=== PATIENT | female | born 1990 | race Caucasian/White ===

== ENCOUNTER 2022-11-03 08:37 | Outpatient (OUT) | payer OTHER, SELFPAY ==
[2022-11-03 10:17] LABS: Alanine Aminotransferase 22 U/L (14-59); Albumin Globulin Ratio 0.9; Albumin Level 3.6 g/dL (3.4-5.0); Alkaline Phosphatase 59 U/L (46-116); Anion Gap 12.1; Aspartate Amino Transferase 15 U/L (15-37); BUN Creatinine Ratio 17.3; Bilirubin Total 0.2 mg/dL (0.2-1.0); Calcium 8.8 mg/dL (8.5-10.1); Carbon Dioxide 25.3 mmol/L (21.0-32.0); Chloride 105 mmol/L (98-107); Cholesterol 141 mg/dL (<=200); Estimated GFR (African America >60 (>=60); Estimated GFR (Non-African Ame >60 (>=60); Globulin 4.1 g/dL; Glucose 95 mg/dL (74-106); HDL Cholesterol 47 mg/dL (40-60); LDL Cholesterol Calculated 80.8 mg/dL; Potassium 4.4 mmol/L (3.5-5.1); Sodium 138 mmol/L (136-145); Total Protein 7.7 g/dL (6.4-8.2); Triglycerides 66 mg/dL (<=150); VLDL CHOLESTEROL 13.2 mg/dL
== END 2022-11-03 08:38 | disposition home or self-care (01) ==
LOC: LAB 08:42
PROVIDERS: PCP Family Medicine; Visit Provider Family Medicine
DX: Z13.1 Encounter for screening for diabetes mellitus (principal); Z13.220 Encounter for screening for lipoid disorders
CPT/HCPCS: 36415; 80053; 80061

== ENCOUNTER 2022-11-16 15:17 | Outpatient (OUT) | payer OTHER, SELFPAY ==
[2022-11-16 16:07] LABS: Basophils Percent Auto 0.6 % (0.2-2.0); Eosinophils Absolute Auto 0.1 10^3/uL (0.0-0.7); Eosinophils Percent Auto 1.8 % (0.9-7.0); Hematocrit 38.9 % (36.0-48.0); Hemoglobin 13.1 g/dL (12.0-16.0); Immature Granulocytes Abs Auto 0.02 10^3/uL (0.00-0.03); Immature Granulocytes Pct Auto 0.3 % (0.0-0.5); Lymphocytes Absolute Auto 2.1 10^3/uL (1.2-3.8); Lymphocytes Percent Auto 28.7 % (20.5-60.0); Mean Corpuscular HGB Conc 33.7 g/dL (29.9-35.2); Mean Corpuscular Hemoglobin 29.1 pg (26.7-34.0); Mean Corpuscular Volume 86.4 fL (81.0-99.0); Mean Platelet Volume 9.7 fL (9.5-13.5); Monocytes Absolute Auto 0.6 10^3/uL (0.3-0.8); Monocytes Percent Auto 8.1 % (1.7-12.0); Neutrophils Absolute Auto 4.3 10^3/uL (1.4-6.5); Neutrophils Percent Auto 60.5 % (43.0-75.0); Platelet Count 238 10^3/uL (150-450); Red Cell Distribution Width 12.2 % (11.0-15.0); White Blood Count 7.2 10^3/uL (4.0-11.0)
[2022-11-16 16:15] LABS: Estimated Average Glucose 97 mg/dL
[2022-11-16 16:16] LABS: INR 1.03; Partial Thromboplastin Time 29.9 sec (22.3-36.2); Prothrombin Time 10.9 sec (9.0-11.6)
[2022-11-16 16:27] LABS: HCG Quantitative <1 mIU/mL; Thyroid Stimulating Hormone 1.048 uIU/mL (0.358-3.740)
[2022-11-16 17:00] LABS: Free T4 0.82 ng/dL (0.76-1.46)
== END 2022-11-16 15:18 | disposition home or self-care (01) ==
PROVIDERS: PCP Family Medicine; Visit Provider Obstetrics & Gynecology
DX: N92.6 Irregular menstruation, unspecified (principal); N92.1 Excessive and frequent menstruation with irregular cycle
CPT/HCPCS: 36415; 83036; 84439; 84443; 84702; 85025; 85610; 85730

== ENCOUNTER 2022-11-24 08:27 | Outpatient (OUT) | payer OTHER, SELFPAY ==
--- NOTE | 2022-11-24 08:30 | US_ITS ---
[address] [address] Patient Name: DAVE GILMAN MRN: [id number] date: 1990 Sex: F Assigned Patient Location: Current Patient Location: US Accession/Order Number: [id number] Exam Date: 11/24/2022 08:30 Report Date: 11/24/2022 10:01 At the request of: FELECIA NOVOA Procedure: US pelvis w/ transvaginal EXAM: Pelvic ultrasound HISTORY: . N92.6 Irregular menses . COMPARISON: None. TECHNIQUE: Transabdominal and transvaginal scanning was performed FINDINGS: Scanning of the pelvis demonstrates an anteverted uterus measuring 7.8 x 5.7 x 3.3 cm. Endometrial complex measures 6 mm. Right ovary measures 2.9 x 1 x 1.5 cm. Color-flow is noted. Resistive index was 0.6. No masses were noted. Within the right ovary there was a 8 x 6 mm smoothly marginated hyperechoic lesion. No color-flow is noted. Left ovary measures 3.9 x 2.1 x 1.4 cm. Color-flow is noted. Resistive indexes 0.56. There is a 1.2 x 0.8 cm dominant follicle/simple cyst in the left ovary. There is also a 1.1 x 0.9 cm avascular septated cyst within the left ovary. No fluid is noted in the cul-de-sac. US/US pelvis w/ transvaginal IMPRESSION: 1. Normal-appearing uterus and endometrial complex. 2. 1.2 x 0.8 cm dominant follicle/simple cyst in the left ovary. There is a small 1.1 x 0.9 cm avascular septated cyst in the left ovary as well. 3. Within the right ovary there was a slightly hyperechoic 8 x 6 mm area. There is no color-flow. Findings could represent a small amount of hemorrhage. Less likely would be a calcification. Ankle correlation is suggested. Electronically authenticated by: CYDNEY RAI Date: 11/24/2022 10:01
== END 2022-11-24 08:28 | disposition home or self-care (01) ==
LOC: US 08:28
PROVIDERS: PCP Family Medicine; Visit Provider Obstetrics & Gynecology
DX: N92.1 Excessive and frequent menstruation with irregular cycle (principal); N83.292 Other ovarian cyst, left side; N83.291 Other ovarian cyst, right side; N83.9 Noninflammatory disorder of ovary, fallopian tube and broad ligament, unspecified
CPT/HCPCS: 76830; 76856

== ENCOUNTER 2023-01-13 19:51 | Outpatient (REF) | payer OTHER, SELFPAY ==
[2023-01-20 14:09] LABS: Age Gdln ACOG Testing Note (.); HPV Aptima Negative (Negative); IGP, Aptima HPV, rfx 16/18,45 Note (.)
== END 2023-01-13 19:52 | disposition home or self-care (01) ==
LOC: LAB 19:51
PROVIDERS: PCP Family Medicine; Visit Provider Obstetrics & Gynecology
DX: Z12.4 Encounter for screening for malignant neoplasm of cervix (principal)
CPT/HCPCS: 87624; G0145

== ENCOUNTER 2024-01-18 18:51 | Outpatient (REF) | payer OTHER, SELFPAY ==
[2024-01-24 18:09] LABS: Age Gdln ACOG Testing Note (.); HPV Aptima Negative (Negative); IGP, Aptima HPV, rfx 16/18,45 Note (.)
== END 2024-01-18 18:52 | disposition home or self-care (01) ==
LOC: LAB 18:51
PROVIDERS: PCP Family Medicine; Visit Provider Obstetrics & Gynecology
DX: Z01.419 Encounter for gynecological examination (general) (routine) without abnormal findings (principal)
CPT/HCPCS: 87624; 88175

== ENCOUNTER 2025-02-06 18:12 | Outpatient (REF) | payer OTHER, SELFPAY ==
--- OUTSIDE RECORDS SUMMARY | 2024-02-01 08:00 | XMS_ITS ---
Author Organization BILLING FACILITY [employer] [facility] Address [address] [place] [address] Care Team Providers Care Rol[employer] Name Role Phone Casandra Gray Primary Care Provider REASON FOR VISIT flu shot 6 -35 months, Influenza vaccine 6 to 35 months IMMUNIZATIONS Vaccine Route Administration Date Status Comme nts Fluzone IM Intramuscular 02/01/2024 Administered Encounters Encounter Location Date Provider Diagnosis [address] [place] [address] 02/01/2024 Casandra Gray Influenza vaccine administered Z23 and Immunizations reviewed and up to date Z76.89 ASSESSMENTS Encounter Date Diagnosis Assessment Notes Treatment Notes Treatment Clinical Notes Section Notes 02/01/2024 Influenza vaccine administered ( ICD-10 - Z23) 02/01/2024Immunizations reviewed and up to date (ICD-10 - Z76.89) PLAN OF TREATMENT No Information Progress Notes * Clarissa CONNORSMaria ElenaOB:1990 ( 33 yo F)Acc No.[id number]:02/01/2024 Patient:??Leah CONNORS :??RAHEEM ParrishB:1990 ?Age:33 Y?Sex:FemaleDate:02/01/2024hone:[phone]:[address] [place] Subjective: * Chief Complaints: * Flu shot 6 -35 monthsInfluenza vaccine 6 to 35 months * HPI: ?Influenza Vaccine Background:?Injectable Influenza Vaccine??Adult or Pediatric??Pediatric.?? * Medical History: * Surgical History: * Hospitalization/Major Diagno stic Procedure: * Medications: Objective: Assessment: * Assessment: 1.??Influenza vaccine administered - Z23 (Primary)??2.??Immunizations reviewed and up to date - Z76.89?? Plan: * Treatment: * Procedures: ?The patient tolerated the procedure well without significant immediate side effects or difficulties. ? * Immunizations: Fluzone : 0.5 mL (Dose No:1) (Route: Intramuscular) given by Nunu Cortez on Left Deltoid (Influenza vaccine administered, Immunizations reviewed and up to date) * Procedure Codes: 34899 IMMUNIZATION ADMIN Fluzone * Billing Information: * Visit Code: * Procedure Codes: 82046 IMMUNIZATION ADMIN. Fluzone. * ign off status: Completed true * Provider: Casandra Gray CNP Date: 02/01/2024 History and Physical Notes * HPI (History of Present Illness) CategorySub-CategoryDetailNotesCategory NotesInfluenza Vaccine Background Injectable Influenza VaccineAdult or Pediatric: Pediatric
--- OUTSIDE RECORDS SUMMARY | 2024-02-28 03:30 | XMS_ITS ---
Author Organization BILLING FACILITY [employer] [facility] Address [address] [place] [address] Care Team Providers Care Otolaryngology Surgeon Name Role Phone Casandra Gray Primary Care Provider [phone] ALLERGIES No Known Allergies REASON FOR VISIT Skin Problem SOCIAL HISTORY Tobacco Use: Social History Observation Description Date Details (start date - stop date) Never Smoker NA - NA Sex Assigned At : Social History Observation Description Sex Assigned At Unknown Tobacco Use/Smoking Question Answer Notes Are you a nonuser VITAL SIGNS Heart Rate 65 /min 02/28/2024 Oximetry 98 % 02/28/2024 Blood pressure systolic 110 mm Hg 02/28/20 24 Blood pressure diastolic 72 mm Hg 024 Respiratory Rate 16 /min 02/28/2024 Weight 177.4 lbs 02/28/2024 Height 64 in 02/28/2024 BMI 30.45 02/28/2024 Weight-kg 80.47 kg 02/28/2024 Encounters Encounter Location Date Provider Diagnosis [address] [place] [address] 02/28/2024 Casandra Gray Irritated nevus D22. 9 ASSESSMENTS Encounter Date Diagnosis Assessment Notes Treatment Notes Treatment Clinical Notes Section Notes 02/28/2024 Irritated nevus (ICD-10 - D22.9) Discussed that mole likely became irritated due to friction from clothing and resulted in bleeding.Continue to monitor mole for asymmetry, irregular borders, more than one or uneven distribution of color, or a large (greater than 6mm) diameter. Finally, pay attention to the evolution of your moles- know what's normal for your skin and check it regularly for changes. Keep the area clean and dry.Apply band aid to affected area as needed. Signs and symptoms of infection were discussed with the patient. Discussed removal of mole; patient agrees that due to mole location, she would like to pursue removal. Will schedule with DW for lesion removal. PLAN OF TREATMENT Treatment Notes Assessment Notes Irritated nevus Discussed that mole likely became irritated due to friction from clothing and resulted in bleeding. Continue to monitor mole for asymmetry, irregular borders, more than one or uneven distribution of color, or a large (greater than 6mm) diameter. Finally, pay attention to the evolution of your moles - know what's normal for your skin and check it regularly for changes. Keep the area clean and dry. Apply band aid to affected area as needed. Signs and symptoms of infection were discussed with the patient. Discussed removal of mole; patient agrees that due to mole location, she would like to pursue removal. Will schedule with DW for lesion removal. Progress Notes * EFRENJohnRegisOB:1990 ( 33 yo F)Acc No.[id number]:02/28/2024 Patient:??Leah GILMAN :??Casandra RAHEEM GrayB:1990 ?Age:33 Y?Sex:FemaleDate:02/28/2024hone:[phone]:[address] [place], [place] Subjective: * Chief Complaints: * Skin Problem * HPI: ?Depression/Anxiety Screening:?PHQ-2 (2015 Edition)*??Little interest or pleasure in doing things???Not at all,??Feeling down, depressed or hopeless???Not at all,??Total score:??0.?Depression Screening:?KATEY-7 (2018 Edition)??Feeling nervous, anxious, or on edge??Not at all,??Not being ableto stop or control worrying??Not at all,??Worrying too much about different things??Not at all,??Trouble relaxing??Not at all,??Being so restless that it is hard to sit still??Not at all,??Becoming easily annoyed or irritable??Not at all,??Feeling afraid as if something awful might happen??Not at all,??Total KATEY-7 Score??0,??Interpretation of Total??(0 to 4) No Anxiety.?*:? HR is a 33 yo female presenting with mole to right buttocks present for 10+ years. Hashad mole evaluated in the past and was told it was benign. Had not noticed any change in size but states mole had been painful for several days and started bleeding after her shower on Wednesday. Reports no pain or bleeding since Wednesday. Covered mole with bandaid on Wednesday but has kept uncovered since yesterday. Has not applied any topicals. * ROS: ?General/Constitutional:?General??Denies:, chills, fatigue, fever.??Skin??REPORTS:, mole(s), concerning/changinglesions.? * Medical History: * Tobacco Conditioner History: Periods : every month has an IUD. Last mammogram date never. Abnormal pap smear Saw Dr Angel Jan 2024. control IUD. * OB History: Total pregnancies 3. Total living children 2. Miscarriage(s) - Apr 19 2016. # 1: normal spontaneous vaginal delivery (), girl 2016. # 2: normal spontaneous vaginal delivery () boy 2021. * Surgical History: bilateral tubal ligation (BTL) 2021gallbladder 2018 * Hospitalization/Major Diagno stic Procedure: No Hospitalization History. * Family History: Father: alive, diagnosed with Hypertension. Mother: alive. Paternal G F: . Paternal G M: . Maternal G F: . Maternal G M: alive. 2 brother(s) . 1 son(s) , 1 daughter(s) . . 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 * Social History: ?Tobacco Use:??Tobacco Use/Smoking??Are you a??nonuser.?? * Medications: None * Allergies: N.K.A.no[Allergies Verified] Objective: * Vitals: HR:65, Oxygen sat:98%, BP:110/72mm Hg, RR:16/min, Wt:177.4lbs, Ht:64in, BMI:30.45, Wt-k.47 kg. * Examination: ?General Examination *: ?GENERAL APPEARANCE:??alert and oriented, no acute distress, pleasant, well nourished.?HEAD:??atraumatic, normocephalic.?LUNGS:??good air movement, no respiratory distress.?SKIN:??Right lower buttocks raised nevus 4 mm x 5 mm, no drainage.?PSYCH:??cognitive function intact, mood normal, flat.? Assessment: * Assessment: 1.??Irritated nevus - D22.9 (Primary)?? Plan: * Treatment: Notes: Discussed that mole likely became irritated due to friction from clothing and resulted in bleeding. Continue to monitor mole for asymmetry, irregular borders, more than one or uneven distribution of color, or a large (greater than 6mm) diameter. Finally, pay attention to the evolution of your moles - know what's normal for your skin and check it regularly for changes. Keep the area clean and dry. Apply band aid to affected area as needed. Signs and symptoms of infection were discussed with the patient. Discussed removal of mole; patient agrees that due to mole location, she would like to pursue removal. Will schedule with for lesion removal. ? * Procedure Codes: * Billing Information: * Visit Code: 35184 Level 2 New Patient Acute Care. * Procedure Codes: * ign off status: Completed true * Provider: Casandra Gray CNP Date: 02/28/2024 History and Physical Notes * HPI (History of Present Illness) CategorySub-CategoryDetailNotesCategory NotesDepression/Anxiety ScreeningPHQ-2 (2015 Edition)*Little interest or pleasure in doing things?: Not at allFeeling down, depressed or hopeless?: Not at allTotal score:: 0Depression ScreeningGAD-7 (2018 Edition)Feeling nervous, anxious, or on edge: Not at allNot being able to stop or control worrying: Not at allWorrying too much about different things: Not at allTrouble relaxing: Not at allBeing so restless that it is hard to sit still: Not at allBecoming easily annoyed or irritable: Not at allFeeling afraid as if something awful might happen: Not at allTotal KATEY-7 Score: 0Interpretation of Total: (0 to 4) No Anxiety*HR is a 33 yo female presenting with mole to right buttocks present for 10+ years. Has had mole evaluated in the past and was told it was benign. Had not noticed any change in size but states mole had been painful for several days and started bleeding after her shower on Wednesday. Reports no pain or bleeding since Wednesday. Covered mole with bandaid on Wednesday but has kept uncovered since yesterday. Has not applied any topicals. Examination CategorySub-CategoryDetailNotesCategory NotesGeneral Examination *GENERAL APPEARANCE:alert and oriented, no acute distress, pleasant, well nourishedHEAD: atraumatic, normocephalicSKIN:Right lower buttocks raised nevus 4 mm x 5 mm, no drainageLUNGS:good air movement, no respiratory distressPSYCH:cognitive function intact, mood normal, flat
--- OUTSIDE RECORDS SUMMARY | 2024-04-05 11:00 | XMS_ITS ---
Author Organization BILLING FACILITY [facility] Address [address] [place] [address] Care Team Providers Care Designer Writer Name Role Phone Casandra Gray Primary Care Provider [phone] Layo Tan [phone] REASON FOR VISIT Mole removal VITAL SIGNS Height 64 in 04/05/2024 Encounters Encounter Location Date Provider Diagnosis [address] [place] [address] [address] 04/05/2024 Layo Peng PLAN OF TREATMENT No Information Progress Notes * Clarissa CONNORShDOB:1990 ( 34 yo F)Acc No.[id number]:04/05/2024 Patient:??Leah CONNORS :??Layo Peng MDDOB:1990 ?Age:33 Y?Sex:FemaleDate:4Phone:[phone]:[facility] [place], [place]Wyv:Casandra Gray Subjective: * Chief Complaints: * 1. Mole removal. * Medical History: Objective: * Vitals: Ht:64in. Assessment: Plan: * Treatment: * Billing Information: * Visit Code: * Procedure Codes: * ign off status: Completed* Addendum: * true * Provider: Layo Peng MD Date: 04/05/2024
--- OUTSIDE RECORDS SUMMARY | 2025-02-06 13:00 | XMS_ITS | Encounter Summary ---
Author Organization [facility] Address [address] [place] [address] Care Team Providers Care Director Medical Name Role Phone Layo Peng MD Primary Care Provider [phone] Reason for Visit * ReasonCommentsWell Women Visit Encounter Details DateTypeDepartmentCare Team (Latest Contact Info)Hxfddjosdyp69/21/2025 1:00 PM EDTOffice Visit [facility] [facility] [address] [place] [id number] Darrius Angel DO [address] [address] Well woman exam with routine gynecological exam Social History Tobacco UseTypesPacks/DayYears UsedDateSmoking Tobacco: NeverSmokeless Tobacco: Never Comments:Parents are smokers so I have a lot lf second hand exposure Alcohol UseStandard Drinks/WeekCommentsNot Currently0 (1 standard drink = 0.6 oz pure alcohol)I drink about twice a yearHumiliation, Afraid, Rape, and Kick questionnaireAnswerDate RecordedWithin the last year, have you been afraid of your partner or ex-partner?No10/08/2022Within the last year, have you been humiliated or emotionally abused in other ways by your partner or ex-partner?No 10/08/2022Within the last year, have you been kicked, hit, slapped, or otherwise physically hurt by your partner or ex-partner?No10/08/2022Within the last year, have you been raped or forced to have any kind of sexual activity by your part ner or ex-partner?No10/08/2022Social Connection and Isolation PanelAnswerDate RecordedIn a typical week, how many times do you talk on the phone with family, friends, or neighbors?Once a week10/08/2022How often do you get together with friends or relatives?Once a week10/08/2022How often do you attend pentecostalism or shinto services?More than 4 times per year10/08/2022o you belong to any clubs or organizations such as pentecostalism groups, unions, fraIdea2 or athletic finesse ups, or school groups?Yes10/08/2022How often do you attend meetings of the clubs or organizations you belong to?1 to 4 times per year10/08/2022re you , , , , never , or living with a partner? 10/08/2022UDIT-CAnswerDate RecordedQ1: How often do you have a drink containing alcohol?Monthly or less10/08/2022Q2: How many drinks containing alcohol do you have on a typical day when you are drinking?1 or Q3: How often do you have six or more drinks on one occasion?Never10/08/2022Overall Financial Resource Strain (CARDIA)AnswerDate RecordedHow hard is it for you to pay for the very basics like food, housing, medical care, and heating?Not very hard 10/08/2022[facility] [place] [facility] Occup[facility] - Occupational Stress QuestionnaireAnswerDate RecordedDo you feel stress - tense, restless, nervous, or anxious, or unable to sleep at night because yourmind is troubled all the time - these days?To some jfoaky4910/08/2022Exercise Vital SignAnswerDate Recorded On average, how many days per week do you engage in moderate to strenuous exercise (like a brisk walk)?5 days10/08/2022On average, how many minutes do you engage in exercise at this level?40 min10/08/2022Hunger Vital SignAnswerDate RecordedWithin the past 12 months, you worried that your food would run out before you got the money to buymore.Never true10/08/2022Within the past 12 months, the food you bought just didn't last and you didn't have money to get more.Never true10/08/2022RAPARE - TransportationAnswerDate RecordedIn the past 12 months, has lack of transportation kept you from medical appointments or from getting medications?No10/08/2022In the past 12 months, has lack of transportation kept you from meetings, work, or from getting things needed for daily living?No10/08/2022Housing Stability Vital SignAnswerDate RecordedIn the last 12 months, was there a time when you were not able to pay the mortgage or rent on time?No10/08/2022In the last 12 months, how many places have you lived?1 10/08/2022In the last 12 months, was there a time when you did not have a steady place to sleep or slept in ashelter (including now)?No10/08/2022EducationAnswer Date RecordedWhat is the highest level of school you have completed or the highest degree you have received?Some college, no aqspwi0211/26/2022 CommentsNoSex and Gender InformationValueDate RecordedSex Assigned at BirthNot on fileLegal EhrQuxodo53/15/2023 7:38 PM EDTGender IdentityNot on fileSexual OrientationNot on fileOccupationIndustryJob Start DateJob 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 DateWork 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 Not on fileNot on fileNot on filedocumented as of this encounter Last Filed Vital Signs Vital SignReadingTime TakenCommentsBlood Hevmcaau011/7210 12:58 PM EDT Pulse--Temperature--Respiratory Rate--Oxygen Saturation--Inhaled Oxygen Concentration--Tqappy08.8 kg (180 lb 6.4 oz)02/06/2025 12:58 PM EDTHeight--Body Mass Index30.0204 3:31 PM EDTdocumented in this encounter Plan of Treatment DateTypeDepartmentCare Team (Latest Contact Info)Vxjcvotpkkb13/22/2025 2:00 PM ESTOffice Visit [facility] [address] [place] [address] Sidra Ahmadi, ANGÉLICA [address] [place] [address] 04/10/2025 9:20 AM ESTOffice Visit [facility] [place] [facility] [address] [email or web address] [address] [place] [address] Kay Michael MD [address] [facility] [address] [place] [address] 02/13/2026 2:00 PM EDTProcedure Visit [facility] [address] [place] [address] Darrius Angel DO [address] [place], [place] [id number] NameTypePriorityAssociated DiagnosesOrder SchedulePap SmearPathology and CytologyRoutine Well woman exam with routine gynecological exam Ordered: 02/06/2025HPV DNA probe, amplifiedMicrobiologyRoutine Well woman exam with routine gynecological exam Ordered: 02/06/2025documented as of this encounter Visit Diagnoses Diagnosis Well woman exam with routine gynecological exam Routine gynecological examination documented in this encounter Care Teams Team MemberRelationshipSpecialtyStart DateEnd Date Layo Peng MD [address] [place] [address] PCP - GeneralFamily Fesfsyda30/14/25documented as of this encounter
--- OUTSIDE RECORDS SUMMARY | 2025-02-06 18:18 | XMS_ITS | CCD ---
Author Organization [facility] Care Team Providers Care Breaker Off Name Role Phone STANLEY, DR IZQUIERDO Admitting Unavailable STANLEY, DR IZQUIERDO Attending Unavailable HEMEYER, DR WILKINS Primary Care Unavailable KARMT, DR HILL Consulting Unavailable WEST, DR CYDNEY Loja Consulting Unavailable STANLEY, DR IZQUIERDO Consulting Unavailable KARASIK, DR HILL Admitting Unavailable KARASIK, DR HILL Attending Unavailable HEMEYER, DR WILKINS Primary Care Unavailable KARNANDOK, DR HILL Consulting Unavailable STANLEY, DR IZQUIERDO Admitting Unavailable STANLEY, DR IZQUIERDO Attending Unavailable HEMEYER, DR WILKINS Primary Care Unavailable STANLEY, DR IZQUIERDO Consulting Unavailable ZIEBER, DR LUCIAN Viramontes Consulting Unavailable STANLEY, DR IZQUIERDO Admitting Unavailable STANLEY, DR IZQUIERDO Attending Unavailable HEMEYER, DR WILKINS Primary Care Unavailable STANLEY, DR IZQUIERDO Consulting Unavailable STANLEY, DR IZQUIERDO Consulting Unavailable HEMEYER, DR WILKINS Primary Care Unavailable STANLEY, DR IZQUEIRDO Attending Unavailable STANLEY, DR IZQUIERDO Admitting Unavailable STANLEY, DR IZQUIERDO Consulting Unavailable HEMEYER, DR WILKINS Primary Care Unavailable STANLEY, DR IZQUIERDO Attending Unavailable STANLEY, DR IZQUIERDO Admitting Unavailable WEST, DR CYDNEY Loja Consulting Unavailable HEMEYER, DR WILKINS Primary Care Unavailable STANLEY, DR IZQUIERDO Attending Unavailable STANLEY, DR IZQUIERDO Admitting Unavailable STANLEY, DR IZQUIERDO Consulting Unavailable MISHEL SWARTZ Admitting Unavailable MISHEL SWRATZ Attending Unavailable HEMEYER, DR WILKINS Primary Care Unavailable MISHEL SWARTZ Consulting Unavailable ANDREW, DR HILL Admitting Unavailable KARNANDOK, DR HILL Attending Unavailable HEMEYER, DR WILKINS Primary Care Unavailable IMANI, DR CYDNEY Loja Consulting Unavailable STANLEY, DR IZQUIERDO Consulting Unavailable STANLEY, DR IZQUIERDO Admitting Unavailable STANLEY, DR IZQUIERDO Attending Unavailable HEMEYER, DR WILKINS Primary Care Unavailable STANLEY, DR IZQUIERDO Consulting Unavailable HEMEYER, DR WILKINS Primary Care Unavailable STANLEY, DR IZQUIERDO Attending Unavailable STANLEY, DR IZQUIERDO Admitting Unavailable STANLEY, DR IZQUIERDO Admitting Unavailable STANLEY, DR IZQUIERDO Attending Unavailable HEMEYER, DR WILKINS Primary Care Unavailable STANLEY, DR IZQUIERDO Consulting Unavailable ZIEBER, DR LUCIAN Viramontes Consulting Unavailable STANLEY, DR IZQUIERDO Consulting Unavailable HEMEYER, DR WILKINS Primary Care Unavailable STANLEY, DR IZQUIERDO Attending Unavailable STANLEY, DR IZQUIERDO Admitting Unavailable MORGOS, LAURA Consulting Unavailable JACE, LINDA SAXENA Consulting Unava ilable STANLEY, DR IZQUIERDO Consulting Unavailable HEMEYER, DR WILKINS Primary Care Unavailable STANLEY, DR IZQUIERDO Attending Unavailable STANLEY, DR IZQUIERDO Admitting Unavailable STANLEY, DR IZQUIERDO Procedure Practitioner Unavailab le KARASIK, DR HILL Consulting Unavailable KARASIK, DR HILL Attending Unavailable KARASIK, DR HILL Admitting Unavailable HEMEYER, DR WILKINS Primary Care Unavailable STANLEY, DR IZQUIERDO Consulting Unavailable HEMEYER, DR WILKINS Primary Care Unavailable STANLEY, DR IZQUIERDO Attending Unavailable STANLEY, DR IZQUIERDO Admitting Unavailable ZIEBER, DR LUCIAN Viramontes Consulting Unavailable HEMEYER, DR WILKINS Primary Care Unavailable STANLEY, DR IZQUIERDO Attending Unavailable STANLEY, DR IZQUIERDO Admitting Unavailable STANLEY, DR IZQUIERDO Consulting Unavailable HEMEYER, DR WILKINS Primary Care Unavailable STANLEY, DR IZQUIERDO Attending Unavailable STANLEY, DR IZQUIERDO Admitting Unavailable Hemeyer Jase PADILLA Primary Care Provider [phone] JASE LEZAMA Attending Unavailable JASE LEZAMA Attending Unavailable JASE LEZAMA Attending Unavailable FELECIA ANGEL Attending Unavailable CYDNEY MACIAS Unavailable CYDNEY MACIAS Unavailable CYDNEY MACIAS Unavailable Medications Current Medications MedicationDrug Class(es)DatesSig (Normalized)Sig (Original)azelastine hydrochloride 0.137 mg/actuat metered dose nasal spray (7 sources)Histamine-1 Receptor AntagonistStart: 08-05-2023 End: 15-87-0955cicl 1 spray(s) nasal route in the morningazelastine (Astelin) 0.1 % nasal spray Indications: Seasonal allergic rhinitis, unspecified trigger Administer 1 spray into each nostril in the morning and 1 spray before bedtime. Use in each nostrilas directed. 90 mL 3 08/05/2023 08/04/2024 Active End: 59-72-5778eqoa 1 spray(s) nasal route twice daily at bedtimeazelastine 137 mcg (0.1 %) nasal spray instill 1 spray into each nostril twice a day MORNING AND BEDTIME 06/02/2024 completed Not Available Not Available Not Available cetirizine hydrochloride 10 mg oral tablet (4 sources)Histamine-1 Receptor Antagonistcetirizine (ZyrTEC) 10 MG tablet Take 10 mg by mouth if needed for allergies Activelevonorgestrel 0.328524 mg/hr intrauterine system (6 sources)Progestin, Progestin-containing Intrauterine DeviceStart: 12-16-2022 Levonorgestrel intrauterine device 52 mgMultiple Vitamin (multivitamin) tablet (6 sources)take 1 tablet by mouth in the morningMultiple Vitamin (multivitamin) tablet Take 1 tablet by mouth in the morning. Activetake 1 tablet by mouth in the morningMultiple Vitamin (multivitamin) tablet Take 1 tablet by mouth in the morning. 0 Active Completed/Discontinued Medications MedicationDrug Class(es)DatesSig (Normalized)Sig (Original)azithromycin 250 mg oral tablet (3 sources)Macrolide AntimicrobialStart: 06-02-2024 End: 37-57-4178yqbr 2 tablets by mouth once dailyazithromycin 250 mg tablet TAKE 2 TABLETS (500 MG) BY ORAL ROUTE ONCE DAILY FOR 3 DAYS 06/02/2024 11/27/2024 completed Not Available Not Available Not Availablebenzonatate 100 mg oral capsule (3 sources)Non-narcotic AntitussiveStart: 06-02-2024 End: 62-31-6458mdmv 1 capsule by mouth three times dailybenzonatate 100 mg capsule Take 1 capsule 3 times a day by oral route for 10 days. 06/02/2024 11/27/2024 completed Not Available Not Available Not Availablehydrocortisone 10 mg/ml / neomycin 3.5 mg/ml / polymyxin b 91404 unt/ml otic suspension (2 sources)Aminoglycoside Antibacterial, Polymyxin-class Antibacterial, CorticosteroidStart: 05-19-2023 End: 37-05-1278kfcblton-polymyxin-hydrocortisone (Cortisporin) 3.5-18103-5 otic suspension Indications: Acute swimmer's ear of right side Administer 3-4 drops into each ear in the morning and 3-4 drops in the evening and 3-4 drops before bedtime. Do all this for 7 days. 10 mL 0 05/19/2023 05/26/2023 Expiredra cetirzne 10mg tab 60ct (3 sources) End: 86-12-6242peqn 1 tablet by mouth once dailyra cetirzne 10mg tab 60ct take 1 tablet by mouth once daily 06/02/2024 completed Not Available Not Available Not Available Problems Active Problems Problem ClassificationProblemDateDocumented DateEpisodic/ChronicCardiac dysrhythmias (2 sources)Bradycardia; Translations: [Bradycardia, unspecified]Onset: 01-24-2025 Resolved: 15-71-8492AazwucehUukppsmzaisjt and procreative management (5 sources)Encounter for sterilization; Translations: [ENCOUNTER FOR STERILIZATION]Onset: 72-55-1075XjvutxwwOnmuuels; convulsions (1 source)Epilepsy, unspecified, not intractable, without status epilepticus; Translations: [EPILEPSY UNS NOTINTRACT W/O SE]Onset: 65-90-5297LhtfrtqWesvjqyzc hypertension (6 sources)Essential hypertension; Translations: [Essential (primary) hypertension]Onset: 975406-54-1645XgbhqrvOwoluftuzwii complicating ; childbirth and the puerperium (13 sources)Unspecified pre-existing hypertension complicating , third trimester; Translations: [Unspecified pre-existing hypertension complicating childbirth]Onset: 58-70-3153WimtpxtBmtszlupqznit and screening for infectious disease (1 source)Encounter for screening for human papillomavirus (HPV); Translations: [ENC SCREENING HUMAN PAPILLOMAVIRUS]Onset: 00-61-5864MkhxatvrEspcxso and fatigue (2 sources)Fatigue; Translations: [Other fatigue]Onset: 01-24-2025 Resolved: 90-40-1374JclspmzdNfjed ear and sense organ disorders (2 sources)Conductive hearing loss, unilateral, right ear, with unrestricted hearing on the contralateral side; Translations: [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]Onset: 01-24-2025 Resolved: 72-68-2610LyzwmraQfaxt ear and sense organ disorders (2 sources)Acute otitis externa; Translations: [Swimmer's ear, right ear] 32-42-8299DbodyeqcAwaei endocrine disorders (6 sources)Polycystic ovary syndrome; Translations: [Polycystic ovarian syndrome]Onset: 016795-35-8631ZkwgkfkVuizh nutritional; endocrine; and metabolic disorders (6 sources)Obesity caused by energy imbalance; Translations: [Other obesity due to excess calories]Onset: 402545-86-9044OrvalkiLoydj screening for suspected conditions (not mental disorders or infectious disease) (8 sources)Encounter for screening for malignant neoplasm of cervix; Translations: [Encounter for screening for diabetes mellitus]Onset: 03-04-2021 EpisodicUnclassified (1 source)CONTACT W/AND (SUSP) EXPOS COVID-19; Translations: [CONTACT W/AND (SUSP) EXPOS COVID-19]Onset: 02-04-2022 Past or Other Problems Problem ClassificationProblemDateDocumented DateEpisodic/ChronicOB-related trauma to perineum and vulva (1 source)Second degree perineal laceration during delivery; Translations: [SECOND DEG PERINEAL LAC DUR DELIV]Onset: 06-61-3662GsjgdhzdUiakg complications of (1 source)Diseases of the nervous system complicating , third trimester; Translations: [DISEASES NERV SYS COMP PREG 3RD TRI]Onset: 05-08-2021 EpisodicOther and delivery including normal (5 sources)Single live ; Translations: [Encounter for supervision of normal , unspecified, thirdtrimester]Onset: 94-51-3062UagseaulKfuzbyvo codes; unclassified (1 source)37 weeks gestation of ; Translations: [37 WEEKS GESTATION OF ]Onset: 23-30-3792EmudmikjClqdjozo codes; unclassified (1 source)Acquired absence of other specified parts of digestive tract; Translations: [ACQ ABSENCE OTH PART DIGESTV TRACT]Onset: 15-16-9390Berswgsj Residual codes; unclassified (1 source)36 weeks gestation of ; Translations: [36 WEEKS GESTATION OF ]Onset: 92-28-7764SebrxkgiSftogqcm codes; unclassified (1 source)35 weeks gestation of ; Translations: [35 WEEKS GESTATION OF ]Onset: 15-44-6683WyutwbllOzlqdamt codes; unclassified (1 source)34 weeks gestation of ; Translations: [34 WEEKS GESTATION OF ]Onset: 26-34-8091BtxqnyhiBnmaiuax codes; unclassified (1 source)33 weeks gestation of ; Translations: [33 WEEKS GESTATION OF ]Onset: 33-85-3104AvhwqwfgOpevlnxd codes; unclassified (1 source)32 weeks gestation of ; Translations: [32 WEEKS GESTATION OF ]Onset: 47-20-5226HkgabpisCyfbboex codes; unclassified (1 source)27 weeks gestation of ; Translations: [27 WEEKS GESTATION OF ]Onset: 12-38-6946WfcdzfcwCasjwfgxi cord complication (1 source)Labor and delivery complicated by cord around neck, without compression, not applicable or unspecified; Translations: [L AND D COMP CORD NECK NO COMPRS NA/UNS]Onset: 31-90-4027Wkgbasgw Results Test NameValueInterpretationReference RangeFacilityCBC W Auto Differential panel (Bld)on 97-72-2954Qfqwvnquq (Bld) [#/Vol]0.1 10*3/uLInvalid Interpretation Code 0.0-0.2[facility] ([facility])Basophils/100 WBC (Bld)1 %Invalid Interpretation Codenot estab.[facility] ([facility])Eosinophils (Bld) [#/Vol]0.3 10*3/uL Invalid Interpretation Code0.0-0.4[facility] ([facility])Eosinophils/100 WBC (Bld)5 %Invalid Interpretation Codenot estab.[facility] ([facility]) Erythrocyte distribution width (RBC) [Ratio]12.1 %Invalid Interpretation Code 11.7-15.4[facility] ([facility])Hematocrit (Bld) [Volume fraction]41.6 % Invalid Interpretation Code34.0-46.6[facility] ([facility])Hemoglobin (Bld) [Mass/Vol]13.8 g/dLInvalid Interpretation Code11.1-15.9[facility] ([facility]) immature cellsNPInvalid Interpretation CodeLabcorp ([facility])Immature granulocytes (Bld) [#/Vol]0.0 10*3/uLInvalid Interpretation Code0.0-0.1[facility] ([facility])Immature granulocytes/100 WBC (Bld)0 %Invalid Interpretation Codenot estab.[facility] ([facility])Lymphocytes (Bld) [#/Vol]1.6 10*3/uL Invalid Interpretation Code0.7-3.1[facility] ([facility])Lymphocytes/100 WBC (Bld)33 %Invalid Interpretation Codenot estab.[facility] ([facility])MCH (RBC) [Entitic mass]30.9 pgInvalid Interpretation Code26.6-33.0[facility] ([facility])MCHC (RBC) [Mass/Vol]33.2 g/dLInvalid Interpretation Code31.5-35.7[facility] ([facility])MCV (RBC) [Entitic vol]93 fLInvalid Interpretation Mwgu94-79 [facility] ([facility])Monocytes (Bld) [#/Vol]0.6 10*3/uLInvalid Interpretation Code0.1-0.9[facility] ([facility])Monocytes/100 WBC (Bld)12 % Invalid Interpretation Codenot estab.[facility] ([facility])Morphology James (Bld) [Interp]NPInvalid Interpretation CodeLabcorp ([facility])Neutrophils (Bld) [#/Vol]2.4 10*3/uLInvalid Interpretation Code1.4-7.0[facility] ([facility])Neutrophils/100 WBC (Bld)49 %Invalid Interpretation Codenot estab.[facility] ([facility])Nucleated RBC/100 WBC (Bld) [Ratio]NPInvalid Interpretation CodeLabcorp ([facility])Platelets (Bld) [#/Vol]231 10*3/uLInvalid Interpretation Pgsg777-214Vuexgmb ([facility])RBC (Bld) [#/Vol]4.46 10*6/uL Invalid Interpretation Code3.77-5.28[facility] ([facility])WBC (Bld) [#/Vol] 5.0 10*3/uLInvalid Interpretation Code3.4-10.8[facility] ([facility]) Comprehensive metabolic 2000 panelon 85-32-4354Krjqsdk [Mass/Vol]4.2 g/dLInvalid Interpretation Code3.9-4.9[facility] ([facility])ALP [Catalytic activity/Vol] 57 U/LInvalid Interpretation Uqgl21-477Grrtdri ([facility])ALT [Catalytic activity/Vol]12 U/LInvalid Interpretation Code0-32[facility] ([facility])AST [Catalytic activity/Vol]18 U/LInvalid Interpretation Code0-40[facility] ([facility])Bilirubin [Mass/Vol]0.2 mg/dLInvalid Interpretation Code0.0-1.2[facility] ([facility])Calcium [Mass/Vol]8.9 mg/dLInvalid Interpretation Code8.7-10.2 [facility] ([facility])Chloride [Moles/Vol]104 mmol/LInvalid Interpretation Gwks36-314Gdkypgn ([facility])CO2 [Moles/Vol]21 mmol/LInvalid Interpretation Soeh45-19Kpqhyno ([facility])Creatinine [Mass/Vol]0.76 mg/dL Invalid Interpretation Code0.57-1.00[facility] ([facility])GFR/1.73 sq M.predicted among non-blacks MDRD (S/P/Bld) [Vol rate/Area]104 mL/min/{1.73_m2} Invalid Interpretation Code>59[facility] ([facility])Globulin (S) [Mass/Vol] 2.7 g/dLInvalid Interpretation Code1.5-4.5[facility] ([facility])Glucose [Mass/Vol]94 mg/dLInvalid Interpretation Rkag50-19Rnynhtp ([facility]) Potassium [Moles/Vol]4.4 mmol/LInvalid Interpretation Code3.5-5.2[facility] ([facility])Protein [Mass/Vol]6.9 g/dLInvalid Interpretation Code6.0-8.5 [facility] ([facility])Sodium [Moles/Vol]138 mmol/LInvalid Interpretation Code 134-144[facility] ([facility])Urea nitrogen [Mass/Vol]14 mg/dLInvalid Interpretation Code6-20[facility] ([facility])Urea nitrogen/Creatinine [Mass ratio]18 mg/mgInvalid Interpretation Code9-23[facility] ([facility])HEMOGLOBIN A1Con 45-28-8161PkS8p (Bld) [Mass fraction]5.0 %Invalid Interpretation Code 4.8-5.6[facility] ([facility])Comment on above:Prediabetes: 5.7 - 6.4 Diabetes: >6.4 Glycemic control for adults with diabetes: <7.0Lipid 1996 panelon 75-25-5405Wrxyqqpqnwy [Mass/Vol]130 mg/dLInvalid Interpretation Goeh223-307 [facility] ([facility])Cholesterol in HDL [Mass/Vol]46 mg/dLInvalid Interpretation Code>39[facility] ([facility])Cholesterol in LDL [Mass/Vol]74 mg/dLInvalid Interpretation Code0-99[facility] ([facility])Cholesterol in VLDL [Mass/Vol]10 mg/dLInvalid Interpretation Code5-40[facility] ([facility]) Cholesterol.total/Cholesterol in HDL [Mass ratio]2.8 {ratio}Invalid Interpretation Code0.0-4.4[facility] ([facility])Comment on above:T. Chol/HDL Ratio Men Women 1/2 Avg.Risk 3.4 3.3 Avg.Risk 5.0 4.4 2X Avg.Risk 9.6 7.1 3X Avg.Risk 23.4 11.0LDL calc comment:NPInvalid Interpretation CodeLabcorp ([facility])Triglyceride [Mass/Vol]44 mg/dLInvalid Interpretation Code0-149 [facility] ([facility])IGP,APTIMA HPV,AGE GDLNon 73-45-1718LBE GDLN ACOG TESTINGNote.NOMS HealthcareComment on above:TESTS RESULT FLAG UNITS REF RANGE LAB Clinician Provided Cytology Information Source.............Cervix;Endocervix No. of containers..01 ThinPrep Vial Age Alisono ACOG Geeta... FLAG LEGEND: L-Low Normal,H-High Normal,LL-Alert Low,HH-Alert High <-Panic Low,>-Panic High,A-Abnormal,AA-Critical Abnormal Performed at: 01 =[address] [place] [address] Sharmin Smith MD, HPV APTIMANegativeNegativeNOMS HealthcareComment on above:This nucleic acid amplification test detects fourteen high- risk HPV types (16,18,31,33,35,39,45,51,52,56,58,59,66,68) without differentiation. Performed at: =[address] [id number] Window Repairer: Sharmin Smith MD, Phone: [phone] Performed at: [address] [id number] Window Repairer: Sharmin Smith MD, Phone: [phone] IGP, APTIMA HPV, RFX 16/18,45Note.[facility] HealthcareComment on above:TESTS RESULT FLAG UNITS REF RANGE LAB DIAGNOSIS: 02 NEGATIVE FOR INTRAEPITHELIAL LESION OR MALIGNANCY. Specimen adequacy: 02 Satisfactory for evaluation. Endocervical and/or squamous metaplastic cells (endocervical component) are present. Performed by: 02 Indigo Mcnamara, Hydroelectric Plant Mechanical Engineer ([facility]) . 02 Note: Note 02 The Pap smear is a screening test designed to aid in the detection of premalignant and malignant conditions of the uterine cervix. It is not a diagnostic procedure and should not be used as the sole means of detecting cervical cancer. Both false-positive and false-negative reports do occur. Test Methodology: Note 02 This liquid based ThinPrep(R) pap test was screened with the use of an image guided system. HPV Genotype Reflex Note 02 Criteria not met, HPV Genotype not performed. FLAG LEGEND: L-Low Normal,H-High Normal,LL-Alert Low,HH-Alert High <-Panic Low,>-Panic High,A-Abnormal,AA-Critical Abnormal Performed at: [address] [facility] [address] [address] Sharmin Smith MD, BRUSH-SPATULA CERVIX ENDOCERVIX CLINISYNCNOMS [facility] AUTO DIFFon 26-75-1052AGOK #0.1 103/ulNormal0.0-0.1 [facility] HospitalComment on above:Performed By: #### CBC #### [facility] [address] [place] [address] Dr. Yilan ChangBasophils/100 WBC (Bld)1.2 %Normal0.2-2.0[facility] Comment on above:Performed By: #### CBC #### [facility] [address] [place] [address] Dr. Carlos Kc #0.3 103/ulNormal0.0-0.7The [facility] HospitalComment on above: Performed By: #### CBC #### [facility] [address] [place] [address] Dr. Carlos Gironosinophils/100 WBC (Bld)4.8 %Normal0.9-7.0[facility] Comment on above:Performed By: #### CBC #### [facility] [address] [place] [address] Dr. Carlos Gironrythrocyte distribution width (RBC) [Ratio]12.3 %Lwtgfe69.0-15.0 [facility] HospitalComment on above:Performed By: #### CBC #### [facility] [address] [place] [address] Dr. Carlos DrewHematocrit (Bld) [Volume fraction]39.5 %Lpgxaq13.0-48.0[facility] HospitalComment on above:Performed By: #### CBC #### [facility] [address] [place] [address] Dr. Carlos DrewHemoglobin (Bld) [Mass/Vol]13.3 g/nBLtyhth19.0-16.0[facility] HospitalComment on above:Performed By: #### CBC #### [facility] [address] [place] [address] Dr. Carlos Cheng #0.02 10e3/ulNormal0.00-0.03The [facility] HospitalComment on above:Performed By: #### CBC #### [facility] [address] [place] [address] Dr. Carlos Cheng %0.3 %Normal0.0-0.5The [facility] HospitalComment on above: Performed By: #### CBC #### [facility] [address] [address] [address] Carlos Reyes #1.9 103/ulNormal1.2-3.8The [facility] HospitalComment on above:Performed By: #### CBC #### [facility] [address] [place] [address] Dr. Carlos Pabonmphocytes/100 WBC (Bld)32.2 %Qkmxgi75.5-60.0The [facility] HospitalComment on above:Performed By: #### CBC #### [facility] [address] [place] [address] Dr. Carlos BrooksUAL DIFF REQNONormalThe [facility] HospitalComment on above: Performed By: #### CBC #### [facility] [address] [place] [address] Dr. Carlos Medina (RBC) [Entitic mass]30.0 csPogwnk89.7-34.0The [facility] HospitalComment on above:Performed By: #### CBC #### [facility] [address] [place] [address] Dr. Cralos Medina (RBC) [Mass/Vol]33.7 g/gACcwtlc21.9-35.2The [facility] HospitalComment on above:Performed By: #### CBC #### [facility] [address] [place] [address] Dr. Carlos Medina (RBC) [Entitic vol]89.2 yWNpavjf89.0-99.0The [facility] HospitalComment on above:Performed By: #### CBC #### [facility] [address] [place] [address] Dr. Carlos Alexis #0.5 103/ulNormal0.3-0.8The [facility] HospitalComment on above:Performed By: #### CBC #### [facility] [address] [place] [address] Dr. Carlos Deviocytes/100 WBC (Bld)7.9 %Normal1.7-12.0[facility] Comment on above:Performed By: #### CBC #### [facility] [address] [place] [address] Dr. Carlos HickmanUT #3.1 103/ulNormal1.4-6.5The [facility] HospitalComment on above:Performed By: #### CBC #### [facility] [address] [place] [address] Dr. Carlos Hickmanutrophils/100 WBC (Bld)53.6 %Jdvtmr23.0-75.0The [facility] HospitalComment on above:Performed By: #### CBC #### [facility] [address] [place] [address] Dr. Carlos DrewPlatelet mean volume (Bld) [Entitic vol]10.7 fLNormal9.5-13.5The [facility] HospitalComment on above:Performed By: #### CBC #### [facility] [address] [place] [address] Dr. Carlos DrewPLT245 103/mfZuuost124-984Yvw [facility] HospitalComment on above: Performed By: #### CBC #### [facility] [address] [place] [address] Dr. Carlos DrewRBC4.43 106/ulNormal4.20-5.40[facility] HospitalCompontiac [facility] on above:Performed By: #### CBC #### [facility] [address] [place] [address] Dr. Carlos DrewWBC5.8 103/ulNormal4.0-11.0The [facility] HospitalComment on above: Performed By: #### CBC #### [facility] [address] [place] [address] Dr. Carlos DrewCovid-19 PCR (CVDTBH)on [id number]-CoV-2 (COVID-19) RNA MIKIE+probe Ql (Unsp spec)Not detectedNormalNOT DETECTEDThe [facility] Comment on above:Result Comment: This test is not yet approved or cleared by the [place] FDA. When there are no FDA-approved or cleared tests available, and other criteria are met, FDA can make tests available under an emergency access mechanism called an Emergency Use Authorization (EUA). The EUA for this test is supported by the [place] of Health and Human Service's (HHS's) declaration that circumstances exist to justify the emergency use of in vitro diagnostics for the detection and/or diagnosis of the virus that causes COVID- 19. This EUA will remain in effect (meaning this test can be used) for the duration of the COVID-19 declaration justifying emergency of IVDs, unless it is terminated or revoked by FDA (after which the test may no longer be used). When diagnostic testing is negative, the possibility of a false negative should be considered in the context of a patient's recent exposures and the presence of clinical signs and symptoms consistent with SARS-CoV-2.Performed By: #### CVDTBH #### [facility] [address] [place] [address] Dr. Carlos Menchaca QUANT HCGon [id number] QUANT1 mIU/mLNSumma Health Wadsworth - Rittman Medical CenterComment on above:Performed By: #### PREGQNT #### [facility] [address] [place] [address] Dr. Carlos Encarnacion RANGESEE Premier HealthComment on above: Result Comment: 5-50 0.2-1 WEEK 50-500 1-2 WEEKS 100-5,000 2-3 WEEKS 500-10,000 3-4 WEEKS 1,000-50,000 4-5 WEEKS 10,000-100,000 5-6 WEEKS 15,000-200,000 6-8 WEEKS 10,000-100,000 2-3 MONTHSPerformed By: #### PREGQNT #### [facility] [address] [place] [address] Dr. Carlos Steen ACOG PANEL 2: 30 to 65on 12-06-2021..[facility] Medical CenterComment on above:Result Comment: Performed at: WBPerformed By: #### CVDTBH #### [facility] [address] [place] [address] Dr. Carlos Caldera Gdln ACOG Hqingcz45-15Fddp[address] [place], [place] [address]Comment on above:Performed By: #### CVDTBH #### [facility] [address] [place] [address] Dr. Carlos DrewDIAGNOSIS:CommentCleveland Clinic on above: Result Comment: NEGATIVE FOR INTRAEPITHELIAL LESION OR MALIGNANCY. Performed at: WBPerformed By: #### CVDTBH #### [facility] [address] [place] [address] Dr. Carlos DrewHPV AptimaNegativeNormalNegativeThe [facility] HospitalCompontiac [facility] hospital on above:Result Comment: This nucleic acid amplification test detects fourteen high-risk HPV types (16,18,31,33,35,39,45,51,52,56,58,59,66,68) without differentiation. Performed at: =GPerformed By: #### CVDTBH #### [facility] [address] [place] [address] Dr. Carlos DrewMethodology:CommentCleveland Clinic on above: Result Comment: This liquid based ThinPrep(R) pap test was screened with the use of an image guided system. Performed at: WBPerformed By: #### CVDTBH #### [facility] [address] [place] [address] Dr. Carlos DrewNote:CommentCleveland Clinic on above:Result Comment: The Pap smear is a screening test designed to aid in the detection of premalignant and malignant conditions of the uterine cervix. It is not a diagnostic procedure and should not be used as the sole means of detecting cervical cancer. Both false-positive and false-negative reports do occur. . Performed at: WBPerformed By: #### CVDTBH #### [facility] [address] [place] [address] Dr. Carlos DrewPerformed by:CommentNoMercy Health Willard Hospital on above: Result Comment: Rocio De Leon, Hydroelectric Plant Mechanical Engineer (ASCP) Performed at: WBPerformed By: #### CVDTBH #### [facility] [address] [place] [address] Dr. Carlos DrewSpecimen adequacy:CommentCleveland Clinic on above:Result Comment: Satisfactory for evaluation. Endocervical and/or squamous metaplastic cells (endocervical component) are present. Performed at: WBPerformed By: #### CVDTBH #### [facility] [address] [place] [address] Dr. Carlos DrewComprehensive Metabolic Panelon [id number] [Mass/Vol]4.4 g/dLNormal3.6-5.1[facility] SpecialistComment on above:Performed By: #### LIPD, CMP #### [facility] [address] [place], [place] [id number]/Globulin [Mass ratio]1.7 {ratio}Normal1.0-2.5NoUniversity Hospitals Elyria Medical Center SpecialistComment on above:Performed By: #### LIPD, CMP #### [facility] [address] [place], [place] [id number] [Catalytic activity/Vol]65 U/AMlplio66-502Wkyzxigy [place] [facility] SpecialistComment on above:Performed By: #### LIPD, CMP #### [facility] [address] [place], [place] [id number] [Catalytic activity/Vol]16 U/LNormal6-33NoUniversity Hospitals Elyria Medical Center SpecialistComment on above:Result Comment: 03/19/2021 Female reference range changed.Performed By: #### LIPD, CMP #### [facility] [address] [facility] [place] [id number] gap [Moles/Vol]15 mmol/XYzlrzl78-33Ltlumhih [place] [facility] SpecialistComment on above:Result Comment: Effective 04/24/2019 reference range changed.Performed By: #### LIPD, CMP #### [facility] [address] [place], [place] [id number] [Catalytic activity/Vol]20 U/LNormal9-34NoUniversity Hospitals Elyria [facility] Center SpecialistComment on above:Performed By: #### LIPD, CMP #### [facility] [address] [facility] [place] [id number] [Mass/Vol]0.37 mg/dLNormal0.30-1.20[facility] SpecialistComment on above:Performed By: #### LIPD, CMP #### [facility] [address] [place], [place] [id number]/CREA18 RatioNormal6-22NortAdams County HospitalHead Still Operator Comment on above:Performed By: #### LIPD, CMP #### [facility] [address] [place], [place] [id number] [Mass/Vol]9.3 mg/dLNormal8.6-10.2[facility] SpecialistComment on above:Performed By: #### LIPD, CMP #### [facility] [address] [place], [place] [id number] [Moles/Vol]107 mmol/DPcgsij88-914Xrqpujcs [place] [facility] SpecialistComment on above:Performed By: #### LIPD, CMP #### [facility] [address] [place], [place] [id number] [Moles/Vol]23 mmol/SCijzrf46-00Fjoglwcx [place] [facility] SpecialistComment on above:Performed By: #### LIPD, CMP #### [facility] [address] [place], [place] [id number] [Mass/Vol]0.7 mg/dLNormal0.6-1.4Nortabrazo arizona heart hospitaln [facility] SpecialistComment on above:Performed By: #### LIPD, CMP #### [facility] [address] [place], [place] [id number] mL/min/1.27h3Lgjzam>60Nortabrazo arizona heart hospitaln [place] [facility] SpecialistComment on above:Performed By: #### LIPD, CMP #### [facility] [address] [place], [place] [id number] mL/min/1.60c6Yycfdq>60NortKettering Health Washington Township Medical SpecialistComment on above:Performed By: #### LIPD, CMP #### [facility] [address] [place], [place] [id number] (S) [Mass/Vol]2.6 g/dLNormal1.9-3.7[facility] [place] [facility] SpecialistComment on above:Performed By: #### LIPZaynab, CMP #### [facility] [address] [place], [place] [id number] [Mass/Vol]95 mg/xUKoalgy40-33Etwhycte [place] Medical SpecialistComment on above:Result Comment: For FASTING Glucose --- ADA reference ranges: Normal 65-99 mg/dl Prediabetes 100-125 Diabetes >/= 126Performed By: #### LIPZaynab, CMP #### [facility] [address] [place], [place] [id number] [Moles/Vol]4.0 mmol/LNormal3.5-5.5N[facility]abrazo [facility] hospitaln [facility] SpecialistComment on above:Performed By: #### LIPZaynab, CMP #### [facility] [address] [place], [place] [id number] [Mass/Vol]7.0 g/dLNormal6.1-8.1[facility] SpecialistComment on above:Performed By: #### LIPZaynab, CMP #### [facility] [address] [place], [place] [id number] [Moles/Vol]141 mmol/UHdryex246-466Bxcfdsyq [place] [facility] SpecialistComment on above:Performed By: #### LIPZaynab, CMP #### [facility] [address] [place], [place] [id number] nitrogen [Mass/Vol]12 mg/dLNormal7-25N[facility]abrazo [facility] hospitaln [facility] SpecialistComment on above:Performed By: #### LIPZaynab, CMP #### [facility] [address] [place], [place] [id number] Panelon [id number] [Mass/Vol]157 mg/dLNormal 125-200NortAdams County Hospital SpecialistComment on above:Result Comment: Low risk < 200mg/dL Borderline risk 201-239 mg/dl High risk > or equal to 240Performed By: #### LIPZaynab, CMP #### [facility] [address] [place], [place] [id number] in HDL [Mass/Vol]46 mg/dLNormal>40Nortabrazo [facility] heart hospitaln [facility] SpecialistComment on above:Result Comment: High Cardiovascular Risk HDL <40 mg/dL Low Cardiovascular Risk HDL > or equal to 60 mg/dlPerformed By: #### LIPD, CMP #### [facility] [address] [place], [place] [id number] in LDL [Mass/Vol]96 mg/dLNoSt. Mary's Medical CenterComment on above:Result Comment: LDL ATP III CLASSIFICATION LDL less than 100 mg/dl Optimal LDL 100-129 mg/dl Near or above optimal LDL 130-159 Borderline high LDL 160-189 High LDL greater than 189 mg/dl Very HighPerformed By: #### LIPD, CMP #### [facility] [address] [place], [place] [id number] in VLDL [Mass/Vol]15 mg/dLNoSt. Mary's Medical CenterComment on above:Performed By: #### LIPD, CMP #### [facility] [address] [place], [place] [id number].total/Cholesterol in HDL [Mass ratio]3 {ratio} NormalNoLouis Stokes Cleveland VA Medical CenterComment on above:Performed By: #### LIPD, CMP #### [facility] [address] [place], [place] [id number] [Mass/Vol]74 mg/kIBijrkd91-762CvikcvabSelect Medical Specialty Hospital - CantonComment on above:Result Comment: TRIG ATPIII CLASSIFICATIONS TRIG less than 150 mg/dl Normal TRIG 150-199 mg/dl Borderline High TRIG 200-500 mg/dl High TRIG greather than 500 mg/dl Very HighPerformed By: #### LIPD, CMP #### [facility] [address] [place], [place] [id number] AUTO DIFFon [id number] #0.0 103/ulNormal0.0-0.1The [facility] HospitalComment on above:Performed By: #### CBC #### [facility] [address] [place], [place] [address] Dr. Carlos DrewBasophils/100 WBC (Bld)0.3 %Normal0.2-2.0The [facility] Comment on above:Performed By: #### CBC #### [facility] [address] [place] [address] Dr. Carlos Kc #0.1 103/ulNormal0.0-0.7The [facility] HospitalComment on above: Performed By: #### CBC #### [facility] [address] [place] [address] Dr. Carlos Gironosinophils/100 WBC (Bld)1.2 %Normal0.9-7.0The [facility] Comment on above:Performed By: #### CBC #### [facility] [address] [place] [address] Dr. Carlos Gironrythrocyte distribution width (RBC) [Ratio]13.8 %Qaoczp48.0-15.0 [facility] Doctors HospitalComment on above:Performed By: #### CBC #### [facility] [address] [place] [address] Dr. Carlos DrewHematocrit (Bld) [Volume fraction]34.0 %Critically low36.0-48.0 [facility] Doctors HospitalComment on above:Performed By: #### CBC #### [facility] [address] [place] [address] Dr. Carlos DrewHemoglobin (Bld) [Mass/Vol]11.6 g/dLCritically low12.0-16.0The [facility] HospitalComment on above:Performed By: #### CBC #### [facility] [address] [place] [address] Dr. Carlos Cheng #0.03 10e3/ulNormal0.00-0.03The [facility] HospitalComment on above:Performed By: #### CBC #### [facility] [address] [place] [address] Dr. Carlos Cheng %0.3 %Normal0.0-0.5The [facility] HospitalComment on above: Performed By: #### CBC #### [facility] [address] [place] [address] Dr. Carlos Reyes #1.4 103/ulNormal1.2-3.8The [facility] HospitalComment on above:Performed By: #### CBC #### [facility] [address] [place] [address] Dr. Carlos Pabonmphocytes/100 WBC (Bld)13.2 %Critically low20.5-60.0The [facility] HospitalComment on above:Performed By: #### CBC #### [facility] [address] [place] [address] Dr. Carlos Mejia DIFF REQNONormalThe [facility] HospitalComment on above: Performed By: #### CBC #### [facility] [address] [place] [address] Dr. Carlos Medina (RBC) [Entitic mass]30.1 ccTyvcmx09.7-34.0The [facility] HospitalComment on above:Performed By: #### CBC #### [facility] [address] [place] [address] Dr. Carlos Medina (RBC) [Mass/Vol]34.1 g/lPZxpphx80.9-35.2The [facility] HospitalComment on above:Performed By: #### CBC #### [facility] [address] [place] [address] Dr. Carlos Turpin (RBC) [Entitic vol]88.3 iHStaaqz87.0-99.0The [facility] HospitalComment on above:Performed By: #### CBC #### [facility] [address] [place] [address] Dr. Carlos Alexis #1.0 103/ulCritically high0.3-0.8ThSt. Mary's [facility] Comment on above:Performed By: #### CBC #### [facility] [address] [place] [address] Dr. Carlos Deviocytes/100 WBC (Bld)9.3 %Normal1.7-12.0[facility] Comment on above:Performed By: #### CBC #### [facility] [address] [place] [address] Dr. Yilan ChangNEUT #7.8 103/ulCritically high1.4-6.5The [facility] Comment on above:Performed By: #### CBC #### [facility] [address] [place] [address] Dr. Carlos Hickmanutrophils/100 WBC (Bld)75.7 %Critically high43.0-75.0The [facility] HospitalComment on above:Performed By: #### CBC #### [facility] [address] [place] [address] Dr. Carlos Torreslet mean volume (Bld) [Entitic vol]10.7 fLNormal9.5-13.5The [facility] HospitalComment on above:Performed By: #### CBC #### [facility] [address] [place] [address] Dr. Carlos DrewPLT157 103/wtAphusx732-828Ybs [facility] HospitalComment on above: Performed By: #### CBC #### [facility] [address] [place] [address] Dr. Carlos DrewRBC3.85 106/ulCritically low4.20-5.40The [facility] HospitalComment on above:Performed By: #### CBC #### [facility] [address] [place] [address] Dr. Carlos DrewWBC10.3 103/ulNormal4.0-11.0The [facility] HospitalComment on above:Performed By: #### CBC #### [facility] [address] [place] [address] Dr. Carlos DrewASYMPTOMATIC COVID-19 ANTIGENon [id number] StatementSEE BELOW NormalThe [facility] HospitalComment on above:Result Comment: This test has not been FDA cleared or approved, but has been authorized by the FDA under an Emergency Use Authorization (EUA) for use by authorized laboratories certified under CLIA that meet the requirements to perform moderate or high complexity testing. This test has been authorized only for the detection of proteins from SARS-CoV-2, not for any other viruses or pathogens. The emergency use of this test is authorized for the duration of the declaration that circumstances exist justifying the authorization of emergency use of in vitro diagnostic tests for detection and/or diagnosis of Covid-19 under section 564(b)(1) of the Act, 21 U.S.C. 360bbb-3(b)(1), unless the declaration is terminated or authorization is revoked sooner.Performed By: #### CVDAGA #### [facility] [address] [place] [address] Dr. Carlos Quintero-CoV-2 (COVID-19) RNA MIKIE+probe Ql (Unsp spec)NegativeNormal NEGATIVEThe [facility] HospitalComment on above:Result Comment: Negative results are presumptive. They do not preclude infection and should not be used as the sole basis for treatment decisions. Additional confirmatory testing by a molecular method should be considered.Performed By: #### CVDAGA #### [facility] [address] [place] [address] Dr. Carlos Wesley AUTO DIFFon [id number] #0.1 103/ulNormal0.0-0.1The [facility] HospitalComment on above:Performed By: #### CBC #### [facility] [address] [place] [address] Dr. Carlos DrewBasophils/100 WBC (Bld)0.5 %Normal0.2-2.0The [facility] Comment on above:Performed By: #### CBC #### [facility] [address] [place] [address] Dr. Carlos Kc #0.2 103/ulNormal0.0-0.7The [facility] HospitalComment on above: Performed By: #### CBC #### [facility] [address] [place] [address] Dr. Carlos Gironosinophils/100 WBC (Bld)2.0 %Normal0.9-7.0The [facility] Comment on above:Performed By: #### CBC #### [facility] [address] [place] [address] Dr. Carlos Gironrythrocyte distribution width (RBC) [Ratio]13.8 %Rlicxl29.0-15.0 The [facility] HospitalComment on above:Performed By: #### CBC #### [facility] [address] [place] [address] [address] Carlos Canasatocrit (Bld) [Volume fraction]36.3 %Kfncit51.0-48.0The [facility] Hospitalment on above:Performed By: #### CBC #### [facility] [address] [address] [address] Carlos DrewHemoglobin (Bld) [Mass/Vol]12.6 g/sYRpyijt86.0-16.0The [facility] HospitalComment on above:Performed By: #### CBC #### [facility] [address] [place] [address] Dr. Carlos Cheng #0.05 10e3/ulCritically high0.00-0.03The [facility] Comment on above:Performed By: #### CBC #### [facility] [address] [place] [address] Dr. Carlos Cheng %0.5 %Normal0.0-0.5The [facility] Hospitalment on above: Performed By: #### CBC #### [facility] [address] [place] [address] Dr. Carlos Reyes #1.8 103/ulNormal1.2-3.8The [facility] on above:Performed By: #### CBC #### [facility] [address] [address] [address] Carlos Pabonmphocytes/100 WBC (Bld)18.5 %Critically low20.5-60.0The [facility] Hospitalment on above:Performed By: #### CBC #### [facility] [address] [address] [address] Carlos BrooksUAL DIFF REQNONormalThe [facility] HospitalComment on above: Performed By: #### CBC #### [facility] [address] [place] [address] Dr. Carlos Alanis (RBC) [Entitic mass]30.4 hkNehmke40.7-34.0The [facility] HospitalComment on above:Performed By: #### CBC #### [facility] [address] [place] [address] Dr. Carlos Medina (RBC) [Mass/Vol]34.7 g/sBSxpsvd08.9-35.2The [facility] HospitalComment on above:Performed By: #### CBC #### [facility] [address] [place] [address] Dr. Carlos Medina (RBC) [Entitic vol]87.5 fGEwptzu20.0-99.0The [facility] HospitalComment on above:Performed By: #### CBC #### [facility] [address] [place] [address] Dr. Carlos Alexis #0.9 103/ulCritically high0.3-0.8The [facility] Comment on above:Performed By: #### CBC #### [facility] [address] [place] [address] Dr. Carlos Deviocytes/100 WBC (Bld)9.0 %Normal1.7-12.0The [facility] Comment on above:Performed By: #### CBC #### [facility] [address] [place] [address] Dr. Carlos Sharma #6.8 103/ulCritically high1.4-6.5The [facility] Comment on above:Performed By: #### CBC #### [facility] [address] [place] [address] Dr. Carlos Hickmanutrophils/100 WBC (Bld)69.5 %Xyszsc47.0-75.0The [facility] HospitalComment on above:Performed By: #### CBC #### [facility] [address] [place] [address] Dr. Carlos Torreslet mean volume (Bld) [Entitic vol]10.8 fLNormal9.5-13.5The [facility] HospitalComment on above:Performed By: #### CBC #### [facility] [address] [place] [address] Dr. Carlos McraeT212 103/neVbhgfk964-968Kkg [facility] HospitalComment on above: Performed By: #### CBC #### [facility] [address] [place] [address] Dr. Carlos DrewRBC4.15 106/ulCritically low4.20-5.40The [facility] HospitalComment on above:Performed By: #### CBC #### [facility] [address] [place] [address] Dr. Carlos DrewWBC9.7 103/ulNormal4.0-11.0The [facility] HospitalComment on above: Performed By: #### CBC #### [facility] [address] [place] [address] Dr. Carlos DrewCovid-19 PCR (CVDTB)on [id number]-CoV-2 (COVID-19) RNA MIKIE+probe Ql (Unsp spec)Not detectedNormalNOT DETECTEDThe [facility] Comment on above:Result Comment: This test is not yet approved or cleared by the [place] FDA. When there are no FDA-approved or cleared tests available, and other criteria are met, FDA can make tests available under an emergency access mechanism called an Emergency Use Authorization (EUA). The EUA for this test is supported by the [place] Director of Health and Human Service's (HHS's) declaration that circumstances exist to justify the emergency use of in vitro diagnostics for the detection and/or diagnosis of the virus that causes COVID- 19. This EUA will remain in effect (meaning this test can be used) for the duration of the COVID-19 declaration justifying emergency of IVDs, unless it is terminated or revoked by FDA (after which the test may no longer be used). When diagnostic testing is negative, the possibility of a false negative should be considered in the context of a patient's recent exposures and the presence of clinical signs and symptoms consistent with SARS-CoV-2.Performed By: #### CVDTBH #### [facility] [address] [place] [address] Dr. Carlos DrewDRUG SCREEN RAPID (URINE)on [id number]P The [facility] HospitalComment on above:Performed By: #### DRUGRPD #### [facility] [address] [place] [address] Dr. Carlos DrewBARNegativeNormalNEGOhioHealth Grant Medical CenterComment on above: Performed By: #### DRUGRPD #### [facility] [address] [place] [address] Dr. Carlos DrewBUPNegativeNormalNEGATIVEOhiohealth Doctors HospitalComment on above: Performed By: #### DRUGRPD #### [facility] [address] [place] [address] Dr. Carlos DrewBZONegativeNormalNEGATIVEOhiohealth Doctors HospitalComment on above: Performed By: #### DRUGRPD #### [facility] [address] [place] [address] Dr. Carlos DrewCOCNegativeBoone Hospital CenteralNEGOhioHealth Grant Medical CenterComment on above: Performed By: #### DRUGRPD #### [facility] [address] [place] [address] Dr. Carlos SpicerProvidence HospitalComment on above: Result Comment: AMP (Amphetamine): 500ng/mL, BAR (Barbituates): 200 ng/mL, BZO (Benzodiazepines): 150 ng/mL, BUP (Buprenorphine): 10 ng/mL, LEIGHTON (Cocaine): 150 ng/mL, mAMP (Methamphetamine): 500 ng/mL, MTD (Methadone): 200 ng/mL, OPI (Opiates): 100 ng/mL, OXY (Oxycodone): 100 ng/mL, PCP (Phencyclidine): 25 ng/mL, PPX (Propoxyphene): 300 ng/mL, THC (Cannabinoids): 50 ng/mL, TCA (Trycyclic Antidepressants): 300 ng/mLPerformed By: #### DRUGRPD #### [facility] [address] [place] [address] Dr. Carlos DrewDRUG CUT HEADERDRUG CLASS TEST SYSTEM CUT-OFF CONCENTRATIONS ARE FOLLOWS:NormalOhiohealth Doctors HospitalCompontiac general hospital on above:Performed By: #### DRUGRPD #### [facility] [address] [address] [address] Carlos DrewmAMPNegativeNormalNEGATIVEOhiohealth Doctors HospitalComment on above: Performed By: #### DRUGRPD #### [facility] [address] [address] [address] Carlos DrewMTDNegativeNormalNEGATIVEOhiohealth Doctors HospitalComment on above: Performed By: #### DRUGRPD #### [facility] [address] [address] [address] Carlos DrewOPINegativeNormalNEGOhioHealth Grant Medical CenterComment on above: Performed By: #### DRUGRPD #### [facility] [address] [address] [address] Carlos DrewOXYNegativeNormalNEGOhioHealth Grant Medical CenterComment on above: Performed By: #### DRUGRPD #### [facility] [address] [address] [address] Carlos DrewPCPNegativeNormalNEGOhioHealth Grant Medical CenterComment on above: Performed By: #### DRUGRPD #### [facility] [address] [address] [address] Carlos DrewPPXNegativeNormalNEGOhioHealth Grant Medical CenterCompontiac general hospital on above: Performed By: #### DRUGRPD #### [facility] [address] [place] [address] Dr. Carlos DrewTCANegativeNormalNEGOhioHealth Grant Medical CenterComment on above: Performed By: #### DRUGRPD #### [facility] [address] [place] [address] Dr. Carlos DrewTHCNegativeNormalNEGOhioHealth Grant Medical CenterComment on above: Performed By: #### DRUGRPD #### [facility] [address] [address] [address] Carlos DrewTYPE AND SCREENon 18-58-4570UMZS AND SCREENNegativeNormalThSt. Mary's Medical Center, Ironton CampusComment on above:Performed By: #### PREGQNT #### [facility] [address] [address] [address] Carlos Marin PREG BIOPHY W NON STRESSon 53-36-4247QY PREG BIOPHY W NON STRESSEXAMINATION: US PREG BIOPHY W NON STRESS HISTORY: Pre-existing hypertension complicating , childbirth and puerperium COMPARISON: No relevant comparison available. TECHNIQUE: Ultrasound biophysical profile was performed in the radiology department. non-reactive stress testing was performed by nursing staff in the birthing center. FINDINGS: BREATHING MOVEMENTS: 2.0 GROSS BODY MOVEMENTS: 2.0 TONE: 2.0 QUALITATIVE AMNIOTIC FLUID VOLUME: 2.0 PRESENTATION: Cephalic HEART RATE: 146.7 bpm H.B./min AMNIOTIC FLUID VOLUME: 19.5 cm cm GESTATIONAL AGE: 36 weeks 0 days CONCLUSION: Total biophysical profile score: 8.0 Electronically authenticated by: CYDNEY DIALLO Date: 2021-05-20 10:54[facility] CenterUS PREG GROWTHon 77-20-8901PU PREG GROWTHEXAMINATION: US PREG GROWTH HISTORY: Pre-existing hypertension complicating , childbirth and puerperium COMPARISON: No relevant comparison available. FINDINGS: Heart Rate: 146.7 bpm Amniotic Fluid Volume: 19.5 cm Number: 1.0 Position: Cephalic presentation, longitudinal lie Maximum Vertical Pocket: 5.9 cm cm 2.4 cm cm 6.3 cm cm 5.0 cm cm BIOMETRY: BPD: 8.8 cm cm; 35 weeks 5 days; 51% HC: 32.2 cmcm; 36 weeks 3 days, 28% AC: 32.1 cm cm; 36 weeks 0 days, 61% FL: 7.0 cm cm; 35 weeks 6 days; 41.4 % % EFW: 2819.7 grams, 6 lbs. 3 oz., 51% FL/AC: 21.8 FL/BPD: 79.0 HC/AC: 1.0 GESTATIONAL AGE: Age by EDC: 36 weeks 0 days VERÓNICA by EDC: 06/17/2021 Age by US: 36 weeks 0 days VERÓNICA by US: 06/18/2019 IMPRESSION: Normal interval growth Electronically authenticated by: CYDNEY DIALLO Date: 2021-05-20 10:56[facility] CenterGROUP B STREP CULTUREon 05-19-2021. agalactiae Ag Ql (Unsp spec)Culture Observations: NEGATIVE FOR GROUP B STREPTOCOCCUS.NormalThe [facility] HospitalComment on above: Performed By: #### PREGQNT #### [facility] [address] [place] [address] Dr. Carlos Marin PREG BIOPHY W NON STRESSon 55-19-8562RN PREG BIOPHY W NON STRESSEXAMINATION: US PREG BIOPHY W NON STRESS HISTORY: Pre-existing hypertension complicating , childbirth and puerperium COMPARISON: Ultrasound biophysical 05/06/2021 TECHNIQUE: Ultrasound biophysical profile was performed. FINDINGS: BREATHING MOVEMENTS: 2.0 GROSS BODY MOVEMENTS: 2.0 TONE: 2.0 QUALITATIVE AMNIOTIC FLUID VOLUME: 2.0 PRESENTATION: Cephalic HEART RATE: 143.6 bpm bpm. AMNIOTIC FLUID VOLUME: 14.1 cm GESTATIONAL AGE: 35 weeks 0 days CONCLUSION: Total biophysical profile score 8.0. Electronically authenticated by: LUCIAN BELLA Date: 2021-05-13 11:28[facility] PREG BIOPHY W NON STRESSon 11-47-4511JO PREG BIOPHY W NON STRESSEXAMINATION: US PREG BIOPHY W NON STRESS HISTORY: Pre-existing hypertension complicating , childbirth and puerperium COMPARISON: No relevant comparison available. TECHNIQUE: Ultrasound biophysical profile was performed. FINDINGS: BREATHING MOVEMENTS: 2.0 GROSS BODY MOVEMENTS: 2.0 TONE: 2.0 QUALITATIVE AMNIOTIC FLUID VOLUME: 2.0 PRESENTATION: CEPHALIC HEART RATE: 137.1 bpm H.B./min AMNIOTIC FLUID VOLUME: 12.2 cm cm GESTATIONAL AGE: 34 weeks 0 days CONCLUSION: Total biophysical profile score: 8.0 Electronically authenticated by: CYDNEY DIALLO Date: 2021-05-06 10:21[facility] PREG BIOPHY W NON STRESSon 92-64-2901EL PREG BIOPHY W NON STRESSEXAMINATION: US PREG BIOPHY W NON STRESS HISTORY: Pre-existing hypertension complicating , childbirth and puerperium COMPARISON: Ultrasound biophysical 04/22/2021 TECHNIQUE: Ultrasound biophysical profile was performed. FINDINGS: BREATHING MOVEMENTS: 2.0 GROSS BODY MOVEMENTS: 2.0 TONE: 2.0 QUALITATIVE AMNIOTIC FLUID VOLUME: 2.0 PRESENTATION: Cephalic HEART RATE: 137.8 bpm bpm. AMNIOTIC FLUID VOLUME: 14.0 cm GESTATIONAL AGE: 33 weeks 0 days CONCLUSION: Total biophysical profile score 8.0. Electronically authenticated by: LUCIAN BELLA Date: 2021-04-29 10:28[facility] PREG BIOPHY W NON STRESSon 84-25-2534PI PREG BIOPHY W NON STRESSEXAMINATION: US PREG BIOPHY W NON STRESS HISTORY: Pre-existing hypertension complicating , childbirth and puerperium COMPARISON: No relevant comparison available. TECHNIQUE: Ultrasound biophysical profile was performed in the radiology department. non-reactive stress testing was performed by nursing staff in the birthing center. FINDINGS: BREATHING MOVEMENTS: 2.0 GROSS BODY MOVEMENTS: 2.0 TONE: 2.0 QUALITATIVE AMNIOTIC FLUID VOLUME: 2.0 PRESENTATION: Cephalic HEART RATE: 137.8 bpm H.B./min AMNIOTIC FLUID VOLUME: 19.5 cm cm GESTATIONAL AGE: 32 weeks 0 days CONCLUSION: Total biophysical profile score: 8.0 Electronically authenticated by: CYDNEY DIALLO Date: 2021-04-22 11:40[facility] PREG GROWTHon 37-50-3113EL PREG GROWTHEXAMINATION: US PREG GROWTH HISTORY: Pre-existing hypertension complicating , childbirth and puerperium COMPARISON: No relevant comparison available. FINDINGS: Heart Rate: 137.8 bpm Amniotic Fluid Volume: 19.5 cm Number: 1.0 Position: Cephalic presentation, longitudinal lie Maximum Vertical Pocket: 5.0 cm cm 6.1 cm cm 4.3 cm cm 4.0 cm cm BIOMETRY: BPD: 8.3 cm cm; 33 weeks 2 days; HC: 31.1 cmcm; 34 weeks 5 days AC: 28.3 cm cm; 32 weeks 2 days FL: 6.3 cm cm; 32 weeks 4 days; 55.5 % % EFW: 2039.1 grams FL/AC: 22.3 FL/BPD: 76.5 HC/AC: 1.1 GESTATIONAL AGE: Age by EDC: 32 weeks 0 days VERÓNICA by EDC: 06/17/2021 Age by US: 33 weeks 2 days VERÓNICA by US: 06/08/2021 IMPRESSION: Normal interval growth Electronically authenticated by: CYDNEY DIALLO Date: 2021-04-22 11:41[facility] PREG GROWTHon 14-84-2862PV PREG GROWTHEXAMINATION: US PREG GROWTH HISTORY: Pre-existing hypertension complicating , childbirth and puerperium COMPARISON: No relevant comparison available. FINDINGS: Heart Rate: 147 Number: 1.0 Position: Breech Amniotic Fluid Volume: 13.3 cm Maximum Vertical Pocket: 5.0 cm BIOMETRY: BPD: 7.3 cm cm; 29 weeks 0 days HC: 28.3 cmcm; 31 weeks 0 days AC: 23.4 cm cm; 27 weeks 4 days FL: 5.6 cm cm; 29 weeks 4 days EFW: 1282 g (21st percentile by ultrasound, 73rd percentile by expected) FL/AC: 0.595103 FL/BPD: 0.551740 HC/AC: 1.601810 GESTATIONAL AGE: Age by EDC: 27 weeks, 3 days VERÓNICA by EDC: 06/17/2021 Age by US: 29 weeks, 2 days VERÓNICA by US: 06/10/2021 IMPRESSION: 1. Single live intrauterine with growth detailed above. Electronically authenticated by: LUCIAN BELLA Date: 2021-03-27 14:59[facility] CenterGLUCOSE - 1HRon 39-49-3019Igahzys [Mass/Vol]120 mg/dLCritically mczz66-944Tgp [facility] HospitalComment on above:Performed By: #### GLU1HR #### [facility] [address] [place] [address] Dr. Carlos DrewHEMOGRAM AND PLATELon 14-21-3926Qejgkvgllk (Bld) [Volume fraction]35.7 %Critically low36.0-48.0The [facility] HospitalComment on above: Performed By: #### PREGQNT #### [facility] [address] [address] [address] Carlos DrewHemoglobin (Bld) [Mass/Vol]12.2 g/tMNwyoun19.0-16.0The [facility] HospitalComment on above:Performed By: #### PREGQNT #### [facility] [address] [place] [address] Dr. Carlos DrewMCH (RBC) [Entitic mass]30.7 umQflaee26.7-34.0The [facility] HospitalComment on above:Performed By: #### PREGQNT #### [facility] [address] [place] [address] Dr. Carlos [facility]ST[facility] (RBC) [Mass/Vol]34.2 g/yBWsgbkb71.9-35.2The [facility] HospitalComment on above:Performed By: #### PREGQNT #### [facility] [address] [place] [address] Dr. Carlos [facility]IN[facility] (RBC) [Entitic vol]89.7 jZMpmnjw42.0-99.0The [facility] HospitalComment on above:Performed By: #### PREGQNT #### [facility] [address] [place] [address] Dr. Carlos DrewPLT205 103/hzYgctwx913-525Ocg [facility] HospitalComment on above: Performed By: #### PREGQNT #### [facility] [address] [place] [address] Dr. Carlos DrewRBC3.98 106/ulCritically low4.20-5.40The [facility] HospitalComment on above:Performed By: #### PREGQNT #### [facility] [address] [place] [address] Dr. Carlos DrewWBC9.8 103/ulNormal4.0-11.0The [facility] HospitalComment on above: Performed By: #### PREGQNT #### [facility] [address] [place] [address] Dr. Carlos Drew Vital Signs Date TimeVital SignValuePerforming PjolacpjpUsbrjibd86-14-8572 01:00-0400Body thyeqw209.29 cmDavid [employer] in [employer] 361294-11-6146 01:00-0400Body mass index (BMI) [Ratio]32.3 kg/v6Kbzlu [employer] in - [employer] 10-08-2025 01:00-0400Body surface area Derived from formula1.94 n3Gwsjtblanquita Macias [place] [employer] 01-35 01:00-0400Body jyvihr72.91 kgDablanquita [place]ias [place] [employer] 48-97 01:00-0400Diastolic blood mm[Hg] Cydney [place] [employer] 36-07 01:00-0400Heart rate79 /minDavizaynab Ginette [place] [employer] 31-98 01:00-6086BqH2% (BldA) [Mass fraction]98 % Cydney Macias [employer] 01-98 01:00-0400Systolic blood xmsopzgs454 mm[Hg] Cydney Macias [employer] [place] [employer] Work Phone: [phone] 01:00-0400Body .29 cmCasandra Gray [employer] Phone: [phone] 01:00-0400Body mass index (BMI) [Ratio]15 kg/v4Notdj [employer] [place] [employer] Work Phone: [phone] 01:00-0400Body surface area Derived from formula1.32 m4Hbrfs [employer] Phone: [phone] 01:00-0400Body hruzoi75.1 kgCasandra [employer] Work Phone: [phone] 01:00-0400Diastolic blood ofdcqayq26 mm[Hg] Casandra Gray [employer] Work Phone: [phone] 01:00-0400Heart rate75 /minCasandra Gray [employer] Work Phone: [phone] 01:00-3720LvO4% (BldA) [Mass fraction]99 % Casandra Gray [employer] Work Phone: [phone] 01:00-0400Systolic blood vitvdsoq609 mm[Hg] Casandra Gray [employer] Work Phone: [phone] 09:11-0400Body mass index (BMI) [Ratio]30.29 kg/u7Pxaul Stanley DO Work Phone: S[employer]SAss[employer]MN Aedvvxqemu42-52-9326 09:11-0400Body nzevya42.56 kgCoremadonna RossiTapEng[employer] Work Phone: noJiberishZwoxayeqkn69-37-0294 09:11-0400Diastolic blood buzhrwwk29 mm[Hg]Felecia Angel [employer] Work Phone: noJiberishAwpubkvgjw55-13-1897 09:11-0400Systolic blood ybbhzfal917 mm[Hg]Feleciamadonna Angel [employer] Work Phone: [facility] CenterHhwllnikpm13-75-7932 08:47-0500Body fofmak702.1 Real Lezama MD Work Phone: [facility] CenterNjenpddgzf34-14-2470 08:47-0500Body mass index (BMI) [Ratio]33.45 kg/n5MkxghrJase Lezama MD Work Phone: NOUniversity of [facility] Children's HospitalRqhehzelrj25-39-9769 08:47-0500Body .17 kgJase Lezama MD Work Phone: [facility] Healthcare Encounters Encounter DateEncounter TypeCare ProviderFacilityStart: 76-07-7280Uaopzyv med counseling center director&/risk factor redj spx 30 minDavid Ginette [place] - [employer], [facility] Start: 94-81-9201Kuvff health examinationCrenshaw Community Hospital Gray [place] [employer], [facility] Start: 55-59-7735Djvemnxq preventive med est patient 18-39 yrsHaley Gray [place] [employer], [facility] Start: 82-45-5617Vurvg health examinationEast [facility] [place] - [employer], [facility] Start: 44-84-1611Zzeuu [place] [employer], [facility] Start: 01-18-2024 End: 30-86-0711Ytrlxm flowsheetCorey Stanley DO Work Phone: noms BCP OBStart: 01-18-2024 End: 16-07-3242Lwuxom flowsheetCorey Stanley DO Work Phone: noms BCP OBStart: 01-18-2024 End: 40-12-0986Qhstwwhjt Result EncounterGeneric External Data ProviderNOMS External Department UnsolicitedStart: 01-18-2024 End: 52-92-8267Qbhxhfp encounter procedureCorey Stanley DO Work Phone: NOYL HealthcareStart: 01-18-2024 End: 95-49-6414Gtlhwcyw preventive med est patient 18-39 yrsCorey Stanley DO Work Phone: noms BCP OBComment on above:Well woman exam with routine gynecological examStart: 01-18-2024 End: 57-71-1286eickbijygaOUCVT FAZIONot AvailableStart: 10-19-2023 End: 91-69-4410xvorncoktrNFMZUB J HEMEYERNot AvailableStart: 08-05-2023 End: 94-44-0007wenqtzeovkWFVFLL J HEMEYERNot AvailableStart: 05-19-2023 End: 92-57-0593Taifya outpatient visit 10 minutesJase Lezama MD Work Phone: [facility] BNS FMComment on above:Acute swimmer's ear of right sideStart: 05-19-2023 End: 22-51-1307mncbyasjdqANMLND J HEMEYERNot AvailableStart: 94-48-7165Wrzelivgh for preprocedural laboratory examinationDR [facility] Start: 01-30-2022 End: 41-72-8855cpywocsdzsLL FELECIA FAZIOFacility:G0Clyvi: 01-28-2022 End: 98-84-8478aizxcfhxpaOJ FELECIA FAZIOFacility:Y4Xnpts: 01-28-2022 End: 09-64-7351Pbvrkarhj for preprocedural laboratory examinationDR [facility] Facility:H6Gvymz: 28-06-8851Rxsrwkpvu for other preprocedural examinationDR [facility] HospitalStart: 01-22-2022 End: 64-29-5666gqcahelpsoNQ EDWARD HEMEYERFacility:T5Vlxgj: 01-22-2022 End: 96-73-0726Qicegbfdd for other preprocedural examinationDR EDWARD HEMEYER Facility:E0Ijsge: 12-02-2021 End: 95-08-6139ijtjllelbcGS FELECIA FAZIOFacility:D8Zaome: 05-26-2021 End: 26-17-2052Xwgofeykgx and management of inpatientDR FELECIA FAZIOFacility:H1 Start: 30-62-6911ivziujujgsBL EDCHINYERE HEMEYERFacility:C2Xlqym: 05-20-2021 End: 13-42-1761xnspnwakqlVP CYDNEY Loja WESTFacility:C2Ytppq: 05-19-2021 End: 91-30-2037iygvfyiuovFC FELECIA FAZIOFacility:M1Kkfbs: 05-16-2021 End: 28-70-5402qccvoojusyFG SERGIO MORALESFacility:Y7Hqsdu: 05-13-2021 End: 47-99-2144nrfrsfubxxTJ FLEECIA FAZIOFacility:Q2Gqjzq: 05-09-2021 End: 20-07-8875epmjixucrhEFEPDVIO GEORGEFacility:I5Ynamc: 05-06-2021 End: 01-63-9322dkkjhqaufaVR SERGIO MORALESFacility:X6Hryzm: 05-02-2021 End: 97-38-3633zvmkfbjooiUG FELECIA FAZIOFacility:M6Mbetv: 04-29-2021 End: 82-76-2039gthogfwusmHU FELECIA FAZIOFacility:R8Ybqds: 04-25-2021 End: 59-24-9743gazqxkhiuyEN SERGIO MORALESFacility:R8Slaqc: 04-22-2021 End: 31-37-3832kdrlwxyhkcWN FELECIA FAZIOFacility:M1Vwvmh: 03-24-2021 End: 43-89-8760lroextlkhhBG FELECIA FAZIOFacility:J7Toqkg: 03-04-2021 End: 33-46-8251xphdebkpmdDG FELECIA FAZIOFacility:H1 Procedures DateProcedureProcedure DetailPerforming ClinicianStart: 01-24-2025 End: 51-29-8682PjoavbnfbfLigbj Macias Start: 47-17-5786NEZ,APTIMA HPV,AGE GDLNCorey Stanley DO Work Phone: Start: 17-79-6000Vwxmmfsziap observation [Identifier] in Cervix by Cyto Barbra Lezama MD Work Phone: Start: 62-28-0698Sdliqcqm of Products of Conception, External ApproachDR FELECIA FAZIOStart: 02-65-9068Fjwelfrk of Female Perineum, External ApproachDR FELECIA FAZIOStart: 48-43-2582Pnolbsfn of Amniotic Fluid, Therapeutic from Products of Conception, Via Natural or Artificial OpeningDR FELECIA FAZIOStart: 25-57-9976Fblorg Perineum Muscle, Open ApproachDR FELECIA ROSSIO Start: 13-57-3970Zlqlfrgmzyxg of Hormone into Female Reproductive, Via Natural or Artificial OpeningDR FELECIA FAZIOStart: 13-99-5908Nvlzzknza tubal ligation Casandra Gray Start: 16-88-7627HzhfxluitkiufzeWjset Myers Start: 89-80-0507EffftfczqwvoodeMhsly Myers Plan of Treatment DateCare ActivityDetailAuthorStart: 10-94-7673Buxkhsnhr for malignant neoplasm of cervixNOMS HealthcareStart: 95-83-5524Qdapgms encounter procedure line driver referralIN [employer] Start: 93-41-7316Ypbezjoplih [Units/volume] in Serum or PlasmaLabcorp ([place])Start: 50-76-8656JjEcdvbh; Acute ComplexInPerson; Acute ComplexKites Start: 01-22-2025 End: 09-67-2984Olwjack encounter yusoaovde60/06/2025 1:00 PM EDT Office Visit [facility] [address] [place] [id number] Felecia Angel, DO [address] [place] [place] [address] NOMS BCP OBStart: 40-71-3385PqPsynsf; PE Routine- 60 InPerson; PE Routine- 60IN [employer] Start: 41-08-9281VtWvhyei; PE, RoutineInPerson; PE, RoutineIN [employer] Start: 57-57-2594Jxuxolo evaluation of patient and reportInPerson; Nurse VisitIN [employer] Start: 90-29-0690XCQ W Auto Differential panel - Blood [facility] ([place])Start: 46-30-7065Onoqumuloykbv metabolic 1999 panel - Serum or PlasmaLabcorp ([place])Start: 21-83-9951Mqqtdzqnxh A1c/Hemoglobin.total in BloodLabcorp ([place])Start: 06-48-0645Ccplp 1995 panel - Serum or Plasma [facility] ([place])Start: 01-18-2024 End: 18-50-4769Usdysif encounter procedureNOMS [facility] OBComment on above:Arrived Start: 71-29-9759Tydkushyw vaccinationInfluenza Vaccine (#1)[facility] Cytology Cervical or vaginal smear or scraping studyPap Smear Pathology and Cytology Routine Well woman exam with routine gynecological exam Ordered: [facility] Work Phone: comment on above:Ordered: 01/18/2024Human papilloma virus DNA [Presence] in Unspecified specimen by Probe with amplificationHPV DNA probe, amplified Microbiology Routine Well woman exam with routine gynecological exam Ordered: 01/18/2024[facility] HealthcareComment on above:Ordered: 01/18/2024 Patient EducationIN [employer] Immunizations Immunization DateImmunizationNotesCare RwnllmdxFtpdahgu72-54-4550hzjyrjbxj, seasonal, injectable, preservative Fabiola Macias [place] [employer] [phone] vaccine or immune globulin; Translations: [Encounter for immunization]Cydney Macias [facility] [employer] [facility] CenterBarryNCLCMount Zion campus 10115639-40-2949haholfynf, seasonal, injectableCasandra Gray [facility] [employer] [id number], injectable, quadrivalent, preservative Disha Lezama MD Work Phone: [facility] CenterJldszkefem97-38-7950syeuaslxd virus vaccine, unspecified formulationCorey Stanley DO Work Phone: [facility] CenterIszxwdpcga73-94-0319xaptcgikf, injectable, quadrivalent, preservative freeJase Lezama MD Work Phone: [facility] CenterUfgbddjysk73-63-9805Pavshbllz, injectable, [place] Canine Kidney, preservative free, quadrivalentJase Lezama MD Work Phone: [facility] CenterOmdryyyphw93-01-8371savkqbi toxoid, reduced diphtheria toxoid, and acellular pertussis vaccine, adsorbedJase Lezama MD Work Phone: [facility] CenterSdvneewqkc58-59-9494UUBN-UMW-6 (COVID-19) vaccine, mRNA, spike protein, LNP, preservative free, 30 mcg/0.3mL doseCrenshaw Community Hospital [employer] [place] [facility] CenterBarryNCLC [id number]-LLW-5 (COVID-19) vaccine, mRNA, spike protein, LNP, preservative free, 30 mcg/0.3mL doseLakehealth Tripoint Medical Centerey HipClub [facility] HospitalNCLC [id number]-ICZ-2 (COVID-19) vaccine, mRNA, spike protein, LNP, preservative free, 30 mcg/0.3mL doseLakehealth Tripoint Medical CenterDAXKO [facility]vere [facility] Hospitalathon [employer] [id number], tetanus toxoids and acellular pertussis vaccineJase Lezama MD Work Phone: [facility] CenterJuvvqhboag16-97-5107nolhmud toxoid, reduced diphtheria toxoid, and acellular pertussis vaccine, adsorbedJase Lezama MD Work Phone: [facility] Payers DatePayer CategoryPayerPolicy [id number] [id number] 2.840.1.868028.3.57[id number] 2.840.1.239860.3.57[id number] 2.840.1.115647.3.57[id number] 2.840.1.601106.3.57[id number] 2.840.1.666071.3.57[id number] 2.0.1.459080.3.57[id number] 2..1.676918.3.57[id number] 2.0.1.186713.3.57[id number] 2..1.041985.3.57[id number] 2.840.1.314612.3.57[id number] 2..1.137509.3.57[id number] 2.840.1.910084.3.57[id number] 2.0.1.317305.3.57[id number] 2.840.1.229920.3.57[id number] 2.840.1.272396.3.57[id number] 2.0.1.199662.3.57[id number] 2.840.1.423279.3.57[id number] 2.16.840.1.687567.3.57[id number] 2.840.1.613626.3.57[id number] 2.840.1.925618.3.57[id number] 2.840.1.242622.3.57[id number] 2.0.1.537796.3.579.[id number] Social History DateTypeDetailFacilityStart: 10-15-2022 End: 03-98-0599Obgcjly smoking status NHISNever smoked tobaccoNOMS Healthcare Start: 10-15-2022 End: 52-36-4541Qawfdkd use and exposureSmokeless tobacco non-userNOMS Healthcare Start: 05-19-2023 End: 62-07-1234Grmecpi intakeEx-drinker (finding)[facility] HealthcareStart: 10-08-2022 End: 54-50-6147Odkcwtt of Social functionNOMS HealthcareStart: 10-08-2022 End: 75-76-8544Hlwgfaidmzn, Afraid, Rape, and Kick questionnaire [HARK][facility] HealthcareWithin the last year, have you been afraid of your partner or ex-partner?NoNOMS HealthcareDo you belong to any clubs or organizations such as presybeterian groups, unions, fraternal or athletic groups, or school groups?YesNOMS HealthcareAre you now , , , , never or living with a partner?MarriedNOMS HealthcareHow often to you have a drink containing alcohol?Monthly or lessNOMS HealthcareHow many standard drinks containing alcohol do you have on a typical day?1 or 2NOMS HealthcareHow often do you have 6 or more drinks on 1 occasion?NeverNOMS HealthcareHow hard is it for you to pay for the very basics like food, housing, medical care, and heating Not very hardNOMS HealthcareDo you feel stress - tense, restless, nervous, or anxious, or unable to sleep at night because yourmind is troubled all the time - these days [OSQ]To some extentNOMS Healthcare(I/We) worried whether (my/our) food would run out before (I/we) got money to buy more.Never trueNOMS Healthcare In the past 12 months, has lack of transportation kept you from medical appointments or from getting medications?NoNOMS HealthcareStart: 11-26-2022 Waftygbqv72MHTW HealthcareStart: 00-46-8765Ekcgkrz CommentCaffeine intake : 2-3 cups/dayNOMS HealthcareStart: 31-79-9904Xjm Assigned At BirthNot on fileNOMN HealthcareStart: 00-19-4962Suwtsso CommentParents are smokers so I have a lot lf second hand exposureNOMN HealthcareStart: 67-85-6067Okgfqdm CommentI drink about twice a yearNOUniversity of [facility] Medical Equipment Procedure CodeEquipment CodeEquipment Original TextEquipment IdentifierDates ProcedureImplant ([id number]) History of Present illness Narrative 01-18-2024 Note Date & CsqzFgllLilaxxio70-93-6720 History of Present illness Narrative* Nikkie Montilla, JAILENE - 01/18/2024 9:00 AM EDT Reason for Appointment: Patient ID: Leah Connors is a 33 y.o. female who presents for Gynecologic Exam Patient presents today for Annual Exam. MEDICATIONS Current Outpatient Medications Medication Instructions azelastine (Astelin) 0.1 % nasal spray 1 spray, Each Nostril, 2 times daily, Use in each nostril asdirected cetirizine (ZYRTEC) 10 mg, Oral, As needed Multiple Vitamin (multivitamin) tablet 1 tablet, Oral, Daily ALLERGIES No Known Allergies PROBLEMS Active Ambulatory Problems Diagnosis Date Noted Essential hypertension (CMS/HCC) 10/07/2022 Non morbid obesity due to excess calories 10/07/2022 PCOS (polycystic ovarian syndrome) 10/07/2022 Resolved Ambulatory Problems Diagnosis Date Noted No Resolved Ambulatory Problems Past Medical History: Diagnosis Date Gastroesophageal reflux disease without esophagitis History of abnormal cervical Pap smear History of seizures as a child Hypertension (CMS/HCC) Migraines (CMS/HCC) Miscarriage Seizures (CMS/HCC) 1993? Varicella 1996? HISTORY PAST MEDICAL HISTORY SOCIAL HISTORY Past Medical History: Diagnosis Date Gastroesophageal reflux disease without esophagitis History of abnormal cervical Pap smear ASCUS History of seizures as a child Hypertension (CMS/HCC) Migraines (CMS/HCC) Miscarriage PCOS (polycystic ovarian syndrome) Dr. Angel 05/27/2021, 03/25/2017 Seizures (CMS/HCC) 1993? Varicella 1996? Social History Tobacco Use Smoking status: Never Smokeless tobacco: Never Tobacco comments: Parents are smokers so I have a lot lf second hand exposure Vaping Use Vaping status: Never Used Substance Use Topics Alcohol use: Not Currently Comment: I drink about twice a year Drug use: Never FAMILY HISTORY Family History Problem Relation Name Age of Onset Hypertension Mother My mother doesnt have hbp but i cant let me remov Seizures Mother My mother doesnt have hbp but i cant let me remov Hypertension Father Jelani Jaimes No Known Problems Brother Bone cancer Mother's Brother Cancer Maternal Grandfather Hayden Covingtondrew Seizures Paternal Grandmother Yara Palicka Hypertension Paternal Grandmother Yara Palicka Diabetes type II Paternal Grandmother Yara Palicka Diabetes Paternal Grandmother Yara Palicka Cancer Mother's Brother Nunu Covingtondrew Hypertension Brother Pranav Mannsamantageneva SURGICAL HISTORY Past Surgical History: Procedure Laterality Date CHOLECYSTECTOMY 06/16/2017 [facility] IUD INSERTION 05/2016 Mirena PAP SMEAR 05/2016 Normal SALPINGECTOMY Bilateral 01/30/2022 Laparoscopic TUBAL LIGATION Removed Jan 2023 VAGINAL DELIVERY 05/27/2021 VAGINAL DELIVERY 03/25/2017 WISDOM TOOTH EXTRACTION 2011 wisdom teeth x2 WISDOM TOOTH EXTRACTION 07/2018 wisdom teeth x2 REVIEW OF SYSTEMS Review of Systems: Review of Systems Constitutional: Negative. HENT: Negative. Eyes: Negative. Respiratory: Negative. Cardiovascular: Negative. Gastrointestinal: Negative. Genitourinary: Negative. Musculoskeletal: Negative. Skin: Negative. Neurological: Negative. All other systems reviewed and are negative. Hematological: Negative. Endocrine: Negative. Allergic/Immunologic: Negative. OBJECTIVE Objective: Physical Exam Constitutional: Appearance: Normal appearance. She is well-developed. Genitourinary: Vulva normal. Breasts: Breasts are soft. Right: Normal. Left: Normal. Cardiovascular: Rate and Rhythm: Normal rate and regular rhythm. Pulmonary: Effort: Pulmonary effort is normal. Breath sounds: Normal breath sounds. Abdominal: General: Bowel sounds are normal. There is no distension. Palpations: Abdomen is soft. Tenderness: There is no abdominal tenderness. There is no guarding or rebound. Musculoskeletal: General: No swelling. Normal range of motion. Right lower leg: No edema. Left lower leg: No edema. Neurological: Mental Status: She is alert and oriented to person, place, and time. Skin: General: Skin is warm and dry. Psychiatric: Mood and Affect: Mood normal. Behavior: Behavior normal. Vitals and nursing note reviewed. Exam conducted with a skirt maker present. Vitals: Estimated body mass index is 30.29 kg/m as calculated from the following: Height as of 08/05/23: 5' 5 . Weight as of this encounter: 182 lb. BP: 122/78 No LMP recorded (lmp unknown). Patient has had an implant. ASSESSMENT & PLAN ICD-10-CM 1. Well woman exam with routine gynecological exam Z01.419 Pap Smear HPV DNA probe, amplified Annual Exam: Patient presents today for an annual exam. Patient states she is doing well and has no complaints. Pap was obtained without difficulty. Orders Placed This Encounter Procedures HPV DNA probe, amplified Follow Up: Patient is to return in one year for annual unless needed otherwise. Documented by Nikkie Montilla LPN on behalf of: Felecia Angel DO documented in this encounterNOMS Healthcare History of Present illness Narrative 05-19-2023 Note Date & VywlCiiiUpqpyvqw82-05-0598 History of Present illness Narrative* Jase Lezama MD - 05/19/2023 9:00 AM EST Patient ID: Leah Connors is a 32 y.o. female who presents for: Upper Respiratory Infection Patient complains of symptoms of a URI. Symptoms include ear ache and discharge on right side . Onset of symptoms was 3 days ago, and has been unchanged since that time. Treatment to date: none. Review of Systems Constitutional: Negative for chills and fever. HENT: Positive for ear discharge and ear pain. Negative for congestion, sinus pressure, sinus pain and sore throat. Respiratory: Negative for cough, shortness of breath and wheezing. Neurological: Negative for light-headedness and headaches. Objective The left ear canal and TM are within normal limits except for some mild retraction. The right ear canal is inflamed and reddened. There is some mild tenderness to palpating and tryingto straighten her hair for the exam. The TM itself appears mildly retracted but otherwise translucent. Visit Vitals Ht 5' 5 Wt 201 lb BMI 33.45 kg/m OB Status Having periods Smoking Status Never BSA 2.05 m No Known Allergies Current Outpatient Medications Medication Instructions Multiple Vitamin (multivitamin) tablet 1 tablet, Oral, Daily Assessment/Plan Diagnoses and all orders for this visit: Acute swimmer's ear of right side - ysrfxsth-wbbgyygce-cnweawcfxntpcd (Cortisporin) 3.5-10974-9 otic suspension; Administer 3-4 dropsinto each ear in the morning and 3-4 drops in the evening and 3-4 drops before bedtime. Do all thisfor 7 days. documented in this encounterSS[facility]-30-2022 Note Date & UbarPrbmLdrcadfh49-69-1050 NoteOPERATIVE NOTE OPERATION DATE: 01/30/2022 PROCEDURE: Bilateral laparoscopic salpingectomy. PREOPERATIVE DIAGNOSIS: Multiparity, desires permanent sterilization. POSTOPERATIVE DIAGNOSIS: Multiparity, desires permanent sterilization. ANESTHESIA: General. SURGEON: Felecia Angel D.O. OBSTETRIC ANAESTHETIST: AMISH Platt URINE OUTPUT: Yellow and clear. BLOOD LOSS: 5 mL. FINDINGS: Normal appearing ovaries, uterus and tubes. SPECIMEN: Bilateral tubes. PROCEDURE: The patient was taken back to the Operating Room where she was given general anesthesia without difficulty. She was then prepped and draped in the normal sterile fashion after being placed in a dorsal lithotomy position. A wet sponge stick was placed into the patient's vagina. Attention was then turned to the patient's abdomen, where a scalpel was used to make a small infraumbilical incision. The S retractors were then used to dissect the underlying layers until the fascia could be seen. The fascia was then grasped with Sue clamps and tented up. A knife was then used to make a small incision to the fascia. The muscle was identified, at that time two sutures of #0 Vicryl on a GI needle was then used and placed through the fascia. The peritoneum was then identified and entered bluntly. The 10-4 Shari was then placed into the patient's abdomen. This was confirmed with direct visualization of the bowel, using the laparoscope. The patient's abdomen was then insufflated using approximately 4 liters of CO2 gas. Survey of the patient's abdomen demonstrated ovaries were normal in appearance as well as both tubes and uterus. A second and third rt and lt lateral ports which were 7-8 and 5 mm in size, was then placed after the skin incision was made under direct visualization The patient's tube on the patient's right side was identified and tented up using a grasper, the LigaSure apparatus was then used to come across the mesosalpinx from the fimbriated end to the insertion site at the uterus, the tube was then amputated and removed in its entirety. This was done on the contralateral side. The tubes were the removed from the patient's abdomen. Excellent hemostasis was noted. The lateral ports were then moved under direct visualization with excellent hemostasis. All instruments were removed from the patient's abdomen. The fascia was closed using the #0 Vicryl on GI needle. The skin was closed using 4-0 Vicryl subcuticularly. All instruments were removed from the patient's vagina as well. The patient was taken out of the dorsal lithotomy position and placed in the supine position and taken to recovery in stable condition. Sponge, lap and needle counts were correct x2.[facility] Evaluation note Note Date & TypeNoteFacilityEvaluation note* Diagnosis Acute swimmer's ear of right side documented in this encounter [facility] Evaluation note Note Date & TypeNoteFacilityEvaluation note* Diagnosis Well woman exam with routine gynecological exam Routine gynecological examination documented in this encounter [facility] Evaluation note Note Date & TypeNoteFacilityEvaluation note No assessment recorded. [place] [facility] Evaluation note Note Date & TypeNoteFacilityEvaluation note* Encounter Date Assessment Date Assessment LastModified by Organization Details LastModified Time 11/27/2024 11/27/2024 Reviewed pre-phy sical labs in detail. Immunizations reviewed and UTD. Recommended: Dental cleanings 2x/yr Annual eye exams Annual flu vaccine Tdap every 10 years Shingles vaccine at age 50. Pneumonia vaccine at age 50 RSV vaccine at age 60 (50-59 with risk factors) Cervical cancer screening (Pap smear +/- HPV) every 3-5 years start at 21 years of age. Breast Cancer Screening (Mammogram) every 1-2 years starting at the age of 40. Colon Cancer Screening (Colonoscopy, Cologuard, or Colofit are options) starting at age 45 (or sooner if indicated). Osteoporosis screening (Bone density studies) starting at 65 (or sooner if indicated). Annual Lung cancer screening (LDCT) for smokers at age 50-80 with 20pkyr history of smoking who continue to smoke or quite within past 15 years Reviewed age appropriate wellness including getting 7-8 hours of sleep at night, diet, activity (150 minutes of aerobic exercise + strength training), water intake, sun protection (limiting exposure,sunscreen, protective clothing/hats), and accident prevention (i.e. gun safety, wearing seatbelt, wearing helmets w/ bikes).eitala09Quv ajvxxgkws07/11/2025 11:19:53 [place] [employer] History general Narrative - Reported Note Date & TypeNoteFacilityHistory general Narrative - Reported* Condition Response Hypertension (High Blood Pressure) Y Gynecological History Statement/Question Response Abnormal Pap Y Current Control Method IUD Date of LMP Obstetrics History GPAL:G 3 P 0 0 0 2 Type Value Multiple Births 0 Full Term 0 Induced 0 Spontaneous 0 Premature 0 Living 2 Ectopics 0 Total 3 IN [employer] History general Narrative - Reported Note Date & TypeNoteFacilityHistory general Narrative - Reported* Condition Response Hypertension (High Blood Pressure) Y Gynecological History Statement/Question Response Abnormal Pap Yes Date of Last Pap Smear 01/18/2024 Current Control Method IUD Obstetrics History GPAL:G 3 P 0 0 0 2 Type Value Multiple Births 0 Full Term 0 Induced 0 Spontaneous 0 Premature 0 Living 2 Ectopics 0 Total 3 IN [employer] Reason for referral (narrative) Note Date & TypeNoteFacilityReason for referral (narrative)* [employer] Referral fo r 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 Referring Physician: Cydney Macias, Family Medicine, Encounter Date: 01/24/2025 Kites Summary Purpose Family History Relationship Description Onset Age of this Age Resolved Age Notes LastModified by Organization Details LastModified Time Paternal Grandmother Hypertensive disorder gjnzhwrk26Rnw zqqhtofpn59/18/2024 15:08:47Paternal PuzqzfvnqmpZpypoocbenprbrgc43 Not jwyiklxwo57/18/2024 15:08:48FatherEssential hypertensiondiagnosed with Hypertensionvsenthil.2754Not tjgeqpdby91/06/2025 21:11:45 Notes:*Relative: Father *Pro blem: alive *Relative: Maternal Grandfather *Problem: Relative: 'Maternal G F'; *Relative: Maternal Grandmother *Problem: alive *Relative: Mother *Problem: alive *Relative: Paternal Grandfather *Problem: Relative: 'Paternal G F'; *Relative: Paternal Grandmother *Problem: Relative: 'Paternal G M'; *Relative: Unspecified Relation *Problem: 2 brother(s) 1 sons(s) 1 daughters(s) *Relative: Unspecified Relation *Problem: 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 Advance Directives TypeDate RecordedPatient RepresentativeExplanationAdvance Directives and Living [id number] Advance Directives Additional Source Comments INFORMATION SOURCE (unrecogn ized section and content) DATE CREATED AUTHOR 08/14/2021 [facility] DATE CREATED AUTHOR AUTHOR'S ORGANIZ ATION 02/09/2022 [facility] DATE CREATED AUTHOR AUTHOR'S ORGANIZ ATION 01/19/2024 [facility] EPIC Reason for Visit (unrecogniz ed section and content) ReasonCommentsURIReasonCommentsGynecologic Exam Care Teams (unrecognized sec tion and content) Team MemberRelationshipSpecialtyStart DateEnd Date Jase Lezama MD [address] [place] [phone] PCP - [facility]10/06/22Team MemberRelationshipSpecialtyStart DateEnd Date Jase Lezama MD [address] [place] [phone] PCP - [facility]10/06/22Team MemberRelationshipSpecialtyStart DateEnd Date Jase Lezama MD [address] [place] [place] [phone] PCP - [facility]10/06/22 FOR RECORDS PERTAINING TO PATIENTS WHO ARE OR HAVE BEEN ENROLLED IN A CHEMICAL DEPENDENCY/SUBSTANCEABUSE PROGRAM, SOME INFORMATION MAY BE OMITTED. This clinical summary was aggregated from multiple sources. Caution should be exercised in using it in the provision of clinical care. This summary normalizes information from multiple sources, and as a consequence, information in this document may materially change the coding, format and clinical context of patient data. In addition, data may be omitted in some cases. CLINICAL DECISIONS SHOULD BE BASED ON THE PRIMARY CLINICAL RECORDS. [facility] [employer] [facility]. provides no warranty or guarantee of the accuracy or completeness of information in this document.
--- OUTSIDE RECORDS SUMMARY | 2025-02-06 18:19 | XMS_ITS | Clinical Summary ---
Author Organization [facility] tem Address [id number] [place] [address] Care Team Providers Care System Analyst Name Role Phone Jase Temple MD Primary Care Provider + [phone] Allergies No known active allergies Medications MedicationSigDispense QuantityRefillsLast FilledStart DateEnd DateStatus labetalol (NORMODYNE) 200 mg tablet Indications:hypertensionTake 100 mg by mouth 2 (two) times a day Indications: HYPERTENSION.Active aspirin 81 mg chewable tablet Chew 81 mg and swallow daily.Active vit,calc76/iron/folic (PNV 29-1 ORAL) Take 1 tablet by mouth daily.Active Active Problems ProblemNoted DateDiagnosed DatePrecatskill [facility]02/12/2018 Assessment & Plan (02/12/2018 4:38 PM EDT): DATE WHEN VACCINE ------- --FLU YRLY IN FALL 1799 declined --TETANUS Q 10 YRS approx 2018 --HZ ONCE AGE 60 na --PREVNAR 13 ONCE AGE 65 na --PPSSV 23 ONCE AGE 66 na CA SCREENING --COLONOSCOPY AGE 50 - 75 na --FIT AGE 50 - 75 --PSA AGE 50 - 70 na -YULIANA AGE 50 - 70 na --PAP AGE 21 - 65 --MAMMOGRAM AGE 45 TO 75 ebe OSTEOPOROSIS --DEXA MENOPAUSAL na OPTHO YEALRY 2018 needs DENTAL YEARLY 2018 utd per pt TOBACCO USE YEARLY OBESITY BMI > 30 OVERWT BMI 25 -29 NORMAL BMI 18.5 -24.9 YEARLY YEARLY YEARLY Patient noted to have elevated BMI and the following intervention(s) were applied: encouragement to exercise and prescribed diet education. Medicare Wellness YEARLY (65) na DM na -diabetic eye exam -diabetic foot exam YEARLY -diabetic shoes -diabetic classes -asa, arb/andres, statin Hypertension Overview (02/12/2018): Labetalol, Diet CAITLIN Wt Reduction. LIfestyle wt loss needed Change in moleObesity Overview (02/12/2018): USDA 1800 silvestre diet / 10,000 aerobic stiep/d Immunizations ImmunizationAdministration DatesNext EzdEPsI38/27/2018Influenza, Unspecified 02/12/2018(Deferred: Patient Refused),01/26/2018(Deferred: Patient Refused) Family History Medical HistoryRelationNameCommentsHypertensionFatherArthritisMaternal GrandfatherCancerMaternal GrandfatherDepressionPaternal GrandmotherHypertension Paternal GrandmotherSeizuresPaternal GrandmotherRelationNameStatusCommentsFather AliveMaternal GrandfatherMotherAlivePaternal Grandmother Social History Tobacco UseTypesPacks/DayYears UsedDateSmoking Tobacco: NeverSmokeless Tobacco: Never Tobacco Cessation:Counseling Given: Yes Alcohol UseStandard Drinks/WeekCommentsNo0 (1 standard drink = 0.6 oz pure alcohol)AUDIT-CAnswerDate RecordedFrequency of Alcohol ConsumptionNever 01/26/2018Average Number of DrinksNot on file01/26/2018Frequency of Binge DrinkingNot on file01/26/2018PHQ-2AnswerDate RecordedTotal Rybws268 ChildcareAnswerDate OjjugejsEnprgtahlFcynnql59/12/2019EmploymentAnswerDate HvmrzridKwoopmtnpkLmywujk47/12/2019Purpose - LifeAnswerDate RecordedPurpose and direction in purhDyuhnze67/11/2021CommentsNoSex and Gender Information ValueDate RecordedSex Assigned at BirthNot on fileLegal XsoTevpgl13/06/2015 11:39 AM EDTGender IdentityNot on fileSexual OrientationNot on file Last Filed Vital Signs Vital SignReadingTime TakenCommentsBlood Kexizzqs942/8608/ 12:19 PM EDT Jtxhj374112/05/2020 12:19 PM VKXQyuspvyfnlf60.8 ??C (98.3 ??F)08/03/2018 9:09 AM EDTRespiratory Bqsl933108/03/2018 9:09 AM EDTOxygen Nxcklcpprv78%08/03/2018 9:09 AM EDTInhaled Oxygen Concentration--Yympsq66.3 kg (210 lb 1.6 oz)01/28/2021 1:24 PM KTRGjygdg791.6 cm (5' 4 )08/03/2018 9:09 AM EDTBody Mass Index36.0608/03/2018 9:09 AM EDT Plan of Treatment Health MaintenanceDue DateLast DoneCommentsDepression Ubszpgjkb50/16/2001Tobacco Rejwqwdqd48/16/2001Adult BMI Alnxbpals13/16/2007Pap Smear2009COVID-19 Vaccine (3 - 2024- season)/, 07/16/2020Influenza Vaccine 12/18/2024DTaP,Tdap and Td Vaccines (3 - Td or Tdap), 10/04/2017 Medical Devices Not on file Insurance Care Teams Team MemberRelationshipSpecialtyStart DateEnd Date Jase Temple MD [facility]12/05/20
--- OUTSIDE RECORDS SUMMARY | 2025-02-06 18:19 | XMS_ITS | Encounter Summary ---
Author Organization [facility] Address [address] [place] [address] Care Team Providers Care Compounding Technician Name Role Phone Layo Peng MD Primary Care Provider [phone] Encounter Details DateTypeDepartmentCare Team (Latest Contact Info)Guopshekrjn32/21/2025amboo flowsheet [facility] [address] [place] [address] Darrius Angel DO [address] [place], [place] [phone] Social History Tobacco UseTypesPacks/DayYears UsedDateSmoking Tobacco: NeverSmokeless [...] relatives?Once a week10/08/2022How often do you attend taoism or sikhism services?More than 4 times per year10/08/2022o you belong to any clubs or organizations such as taoism groups, unions, fraSummuS Render or athletic finesse ups, or school groups?Yes10/08/2022How [...] and heating?Not very hard 10/08/2022[facility] [place] [facility] Occup[facility] - Occupational Stress QuestionnaireAnswerDate RecordedDo you feel stress - tense, restless, nervous, or anxious, or unable to sleep at night because yourmind is troubled all the time - these days?To some taetjq1810/08/2022Exercise Vital SignAnswerDate Recorded On average, how many [...] highest degree you have received?Some college, no ewycfh3511/26/2022 CommentsNoSex and Gender InformationValueDate RecordedSex Assigned at BirthNot on fileLegal WupLnvpkx58/15/2023 7:38 PM EDTGender IdentityNot on fileSexual OrientationNot on fileOccupationIndustryJob 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 Not on fileNot on fileNot on filedocumented as of this encounter Plan of Treatment DateTypeDepartmentCare Team (Latest Contact Info)Eockmtktfjd53/22/2025 2:00 PM ESTOffice Visit [facility] [address] [place] [address] Sidra Ahmadi S, AUD [address] [place] [address] 04/10/2025 9:20 AM ESTOffice Visit [facility] [address] [facility] [address] [place] [phone] Kay Michael MD [address] [facility] [address] [place] [address] 02/13/2026 2:00 PM EDTProcedure Visit [facility] [address] [place] [address] Darrius Angel DO [address] [place] [address] documented as of this encounter Visit Diagnoses Not on filedocumented in this encounter Care Teams Team MemberRelationshipSpecialtyStart DateEnd Date Layo Peng MD [address] [place] [address] PCP - GeneralFamily Bjehocrz28/14/25documented as of this encounter
--- OUTSIDE RECORDS SUMMARY | 2025-02-06 18:19 | XMS_ITS | Encounter Summary ---
Author Organization [facility] Address [address] [place] [address] Care Team Providers Care Pick Remover Name Role Phone Layo Peng MD Primary Care Provider [phone] Encounter Details DateTypeDepartmentCare Team (Latest Contact Info)Lbeawumqbno22/16/2025Travel Social History Tobacco UseTypesPacks/DayYears UsedDateSmoking Tobacco: NeverSmokeless [...] relatives?Once a week10/08/2022How often do you attend jew or methodist services?More than 4 times per year10/08/2022o you belong to any clubs or organizations such as jew groups, unions, fraternal or athletic finesse ups, or school groups?Yes10/08/2022How [...] housing, medical care, and heating?Not very hard 10/08/2022[facility] [place] of Occupational Health - Occupational Stress QuestionnaireAnswerDate RecordedDo you feel stress - tense, restless, nervous, or anxious, or unable to sleep at night because yourmind is troubled all the time - these days?To some rzdhsm2410/08/2022Exercise Vital SignAnswerDate Recorded On average, how many [...] highest degree you have received?Some college, no jyirds0311/26/2022 CommentsNoSex and Gender InformationValueDate RecordedSex Assigned at BirthNot on fileLegal BipPdzenj57/15/2023 7:38 PM EDTGender IdentityNot on fileSexual OrientationNot on 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 [address] [place], [place] [id number] 02/13/2026 2:00 PM EDTProcedure Visit [facility] [address] [facility] [place] [address] Darrius Angel DO [address] [facility] [address] [place] [address] documented as of this encounter Visit Diagnoses Not on filedocumented in this encounter Care Teams Team MemberRelationshipSpecialtyStart DateEnd Date Layo Peng MD [address] [address] PCP - GeneralFamily Ncpijsqv16/14/25documented as of this encounter
--- OUTSIDE RECORDS SUMMARY | 2025-02-06 18:19 | XMS_ITS | Clinical Summary ---
Author Organization [facility] Address [address] [place] [address] Care Team Providers Care Smog Technician Name Role Phone Layo Peng MD Primary Care Provider [phone] Allergies No known active allergies Medications MedicationSigDispense QuantityRefillsLast FilledStart DateEnd DateStatus Multiple Vitamin (multivitamin) tablet Take 1 tablet by mouth in the morning.Active cetirizine (ZyrTEC) 10 MG tablet Take 10 mg by mouth if needed for allergiesActive azelastine (Astelin) 0.1 % nasal spray Indications:Seasonal allergic rhinitis, unspecified triggerAdminister 1 spray into each nostril in the morning and 1 spray before bedtime. Use in each nostril as directed. 90 mL ctiveHospital, Clinic, or Other Facility Administered Medication Ordered DoseRouteFrequencyStart DateEnd DateStatus Levonorgestrel intrauterine device 52 mg Indications:Encounter for insertion of Mirena IUD52 ulIDXfxqmphnfz14/30/2023 Active Active Problems ProblemNoted DateDiagnosed DateEssential qvdwytogynik16/21/2023Non morbid obesity due to excess zgeyavge45/21/2023COS (polycystic ovarian syndrome) 10/07/2022 Encounters DateTypeDepartmentCare FovpDgsestfvjzg18/21/2025 1:00 PM EDTOffice Visit [facility] [address] [place] [address] Darrius Angel, DO Well woman exam with routine gynecological exam02/06/2025amboo flowsheet [facility] [address] [place] [address] [place] [address] Darrius Angel, 02/01/2025Travelfrom Last 3 Months Immunizations ImmunizationAdministration DatesNext BqxTPyC93/27/2018Influenza, injectable, MDCK, preservative free, bpqdjxkzwtji29/14/2022Influenza, injectable, quadrivalent, preservative free01/21/2023,01/27/2022Tdap05/02/2021,10/04/2017 Family History Medical HistoryRelationNameCommentsNo Known ProblemsBrother 1HypertensionBrother 2Anthony PalickaHypertensionFatherRobert PalickaCancerMaternal GrandfatherJack MesnardHypertensionMotherMy mother doesnt have hbp but i cant let me remov SeizuresMotherMy mother doesnt have hbp but i cant let me removBone cancer Mother's Brother 1CancerMother's Brother 2Kelly MesnardDiabetesPaternal GrandmotherDorothy PalickaDiabetes type IIPaternal GrandmotherDorothy Palicka HypertensionPaternal GrandmotherDorothy PalickaSeizuresPaternal Grandmother Yara PalickaRelationNameStatusCommentsBrother 12 brothersBrother 2Anthony PalickaDaughterAlive1 daughterFatherRobert PalickaAliveMaternal GrandfatherJack MesnardAliveMaternal GrandmotherAliveMotherMy mother doesnt have hbp but i cant let me removAliveMother's Brother 1Mother's Brother 2Kelly MesnardPaternal GrandmotherDorothy PalickaSonAlive1 son Social History Tobacco UseTypesPacks/DayYears UsedDateSmoking Tobacco: NeverSmokeless Tobacco: Never Tobacco Cessation:Counseling Given: Not Answered Comments:Parents are smokers so I have a [...] relatives?Once a week10/08/2022How often do you attend muslim or protestant services?More than 4 times per year10/08/2022o you belong to any clubs or organizations such as muslim groups, unions, fraternal or athletic finesse ups, [...] housing, medical care, and heating?Not very hard 10/08/2022[facility] [place] of Occupational Health - Occupational Stress QuestionnaireAnswerDate RecordedDo you feel stress - tense, restless, nervous, or anxious, or unable to sleep at night because yourmind is troubled all the time - these days?To some yfclnv7310/08/2022Exercise Vital SignAnswerDate Recorded On average, how many [...] steady place to sleep or slept in 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 Not on fileNot on fileNot on file Last Filed Vital Signs Vital SignReadingTime TakenCommentsBlood Rkfvoqtz502/7210 12:58 PM EDT Rhraa704610/15/2022 10:52 AM EDTTemperature--Respiratory Rate--Oxygen Saturation 99%10/15/2022 10:52 AM EDTInhaled Oxygen Concentration--Vpdles45.8 kg (180 lb 6.4 oz)02/06/2025 12:58 PM JLLWftjow145.1 cm (5' 5 )08/05/2023 3:31 PM EDTBody Mass Index30.02008/05/2023 3:31 PM EDT Plan of Treatment DateTypeDepartmentCare Team (Latest Contact Info)Mokgvysvbmy42/22/2025 2:00 PM ESTOffice Visit [facility] [place] [facility] [address] [place] [address] Sidra Ahmadi S, AUD [address] [place] [address] 04/10/2025 9:20 AM ESTOffice Visit [facility] [place] [facility] [address] [facility] [address] [place] [phone] Kay Michael MD [address] [facility] [address] [place] [address] 02/13/2026 2:00 PM EDTProcedure Visit [facility] [address] [facility] [address] Darrius Angel DO [address] [facility] [address] [place] [address] Health MaintenanceDue DateLast DoneCommentsHPV/Xrjhhn3212/02/2026Cervical Cancer Rmpwivhyr63/01/2027Pap Smear, 12/02/2021Influenza Vaccine Ueoojppsr62/08/2025, 02/01/2024, 01/21/2023, Additional history exists Procedures Procedure NamePriorityDate/TimeAssociated DiagnosisCommentsPAP SMEARRoutine 01/18/2024 12:00 AM EDTfrom Last 3 Months or Most Recently Relevant to Health Maintenance Results * Pap Smear (01/18/2024 12:00 AM EDT)Specimen (Source)Anatomical Location / LateralityCollection Method / VolumeCollection TimeReceived TimeSwabCervical swab / Unknown Narrative Authorizing ProviderResult TypeResult StatusCorey Stanley DOL[facility] CYTOLOGY ORDERABLESFinal ResultPerforming OrganizationAddressCity/State/ZIP CodePhone Number EXTERNAL LAB from Last 3 Months or Most Recently Relevant to Health Maintenance Insurance Advance Directives TypeDate RecordedPatient RepresentativeExplanationAdvance Directives and Living Will Advance Directives Care Teams Team MemberRelationshipSpecialtyStart DateEnd Layo Peng MD [address] [place] [address] PCP - GeneralFamily Ovmddawr06/14/25
--- OUTSIDE RECORDS SUMMARY | 2025-02-06 18:19 | XMS_ITS | Patient Health Record ---
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 Name Role Phone Casandra Gray Primary Care Provider [phone] Layo Peng [phone] ALLERGIES No Known Allergies REASON FOR REFERRAL No Information IMMUNIZATIONS Vaccine Route Administration Date Status Comme nts Fluzone IM Intramuscular 02/01/2024 Administered SOCIAL HISTORY Tobacco Use: Social History Observation Description Date Details (start date - stop date) Never Smoker NA - NA Sex Assigned At : Social History Observation Description Sex Assigned At Unknown Tobacco Use/Smoking Question Answer Notes Are you a nonuser VITAL SIGNS Heart Rate 65 /min 02/28/2024 Respiratory Rate16 /min02/28/20245116Opiiyapy65 %02/28/2024lood pressure diastolic 72 mm Hg02/28/2024Weight-kg80.47 kg02/28/20249145Dzxgox04 in04/05/2024lood pressure mnfhkgen409 mm Hg02/28/20241272Cfolfm128.4 lbs104/29/2023BMI30.45104/29/2023 Encounters Encounter Location Date Provider Diagnosis [facility] [address] [place] [address] 04/05[facility] [place] [address]/11/2024 Casandra GrayIrritated nevus D22.9 ASSESSMENTS Encounter Date Diagnosis Assessment Notes Treatment [...] removal. Will schedule with for lesion removal. PLAN OF TREATMENT No Information Insurance Providers Payer Name Payer Address Payer Phone Subscriber Number Group Number Insured Name Patient Relationship to Insured Coverage Start Date Coverage End Date [facility] [address] [place] [address] [id number] Walt Connors Spouse - patient is the spouse of the insured MEDICAL (GENERAL) HISTORY Surgical History Surgery Date(Month/Year) gallbladder 2018 bilateral tubal ligation (BTL) 2021
[2025-02-11 16:08] LABS: Age Gdln ACOG Testing Note (.); IGP, Aptima HPV, rfx 16/18,45 Note (.)
== END 2025-02-06 18:13 | disposition home or self-care (01) ==
LOC: LAB 18:12
PROVIDERS: PCP Family Medicine; Visit Provider Obstetrics & Gynecology
DX: Z01.419 Encounter for gynecological examination (general) (routine) without abnormal findings (principal)
CPT/HCPCS: 87624; 88175

== ENCOUNTER 2025-02-23 08:11 | Outpatient (OUT) | payer OTHER, SELFPAY ==
--- OUTSIDE RECORDS SUMMARY | 2025-02-23 08:14 | XMS_ITS | CCD ---
Author Organization [facility] Care Team Providers Care Whip Operator Name Role Phone STANLEY, DR IZQUIERDO Admitting Unavailable STANLEY, DR IZQUIERDO Attending Unavailable HEMEYER, DR WILKINS Primary Care Unavailable KARMT, DR HILL Consulting Unavailable WEST, DR CYDNEY Loja Consulting Unavailable STANLEY, DR IZQUIERDO Consulting Unavailable KARASIK, DR HILL Admitting Unavailable KARASIK, DR HILL Attending Unavailable HEMEYER, DR WILKINS Primary Care Unavailable KARMT, DR HILL Consulting Unavailable STANLEY, DR IZQUIERDO [...] Consulting Unavailable MISHEL SWARTZ Admitting Unavailable MISHEL SWARTZ Attending Unavailable HEMEYER, DR WILKINS Primary Care Unavailable MISHEL SWARTZ Consulting Unavailable KARMT, DR HILL Admitting Unavailable KARMT, DR HILL Attending Unavailable HEMEJANET, DR WILKINS Primary Care Unavailable IMANI, DR [...] DR HILL Admitting Unavailable HEMEYER, DR WILKINS [facility] Care Unavailable STANLEY, DR IZQUIERDO Consulting Unavailable HEMEYER, DR WILKINS Primary Care Unavailable STANLEY, DR IZQUIERDO Attending Unavailable STANLEY, DR IZQUIERDO Admitting Unavailable ZIEBER, DR LUCIAN Viramontes Consulting Unavailable HEMEYER, DR WILKINS [facility] Unavailable STANLEY, DR IZQUIERDO Attending Unavailable STANLEY, DR IZQUIERDO Admitting Unavailable STANLEY, DR IZQUIERDO Consulting Unavailable HEMEYER, DR WILKINS [facility] Unavailable STANLEY, DR IZQUIERDO Attending Unavailable STANLEY, DR IZQUIERDO Admitting Unavailable Hemeyer Jase PADILLA Primary Care Provider CYDNEY MACIAS Unavailable CYDNEY MACIAS Unavailable CYDNEY MACIAS Unavailable Cydney Macias MD Primary Care Provider [phone] FELECIA ANGEL Attending Unavailable Medications Current Medications MedicationDrug Class(es)DatesSig (Normalized)Sig (Original)azelastine hydrochloride 0.137 mg/actuat metered dose nasal spray (11 sources)Histamine-1 Receptor AntagonistStart: 08-05-2023 End: 54-38-1728zvzn 1 spray(s) nasal route in the morningazelastine (Astelin) 0.1 % nasal spray Indications: Seasonal allergic rhinitis, unspecified trigger Administer 1 spray into each nostril in the morning and 1 spray before bedtime. Use in each nostrilas directed. 90 mL 3 08/05/2023 Active End: 86-80-5660yibp 1 spray(s) nasal route twice daily at bedtimeazelastine 137 mcg (0.1 %) nasal spray instill 1 spray into each nostril twice a day MORNING AND BEDTIME 06/02/2024 completed Not Available Not Available Not Available cetirizine hydrochloride 10 mg oral tablet (8 sources)Histamine-1 Receptor Antagonistcetirizine (ZyrTEC) 10 MG tablet Take 10 mg by mouth if needed for allergies Activelevonorgestrel 0.480210 mg/hr intrauterine system (10 sources)Progestin, Progestin-containing Intrauterine DeviceStart: 12-16-2022 Levonorgestrel intrauterine device 52 mgMultiple Vitamin (multivitamin) tablet (10 sources)take 1 tablet by mouth in the morningMultiple Vitamin (multivitamin) tablet Take 1 tablet by mouth in the morning. Activetake 1 tablet by mouth in the morningMultiple Vitamin (multivitamin) tablet Take 1 tablet by mouth in the morning. 0 Active Completed/Discontinued Medications MedicationDrug Class(es)DatesSig (Normalized)Sig (Original)azithromycin 250 mg oral tablet (3 sources)Macrolide AntimicrobialStart: 06-02-2024 End: 16-42-7798rzoe 2 tablets by mouth once dailyazithromycin 250 mg tablet TAKE 2 TABLETS (500 MG) BY ORAL ROUTE ONCE DAILY FOR 3 DAYS 06/02/2024 11/27/2024 completed Not Available Not Available Not Availablebenzonatate 100 mg oral capsule (3 sources)Non-narcotic AntitussiveStart: 06-02-2024 End: 92-02-6839jklf 1 capsule by mouth three times dailybenzonatate 100 mg capsule Take 1 capsule 3 times a day by oral route for 10 days. 06/02/2024 11/27/2024 completed Not Available Not Available Not Availablehydrocortisone 10 mg/ml / neomycin 3.5 mg/ml / polymyxin b 78019 unt/ml otic suspension (2 sources)Aminoglycoside Antibacterial, Polymyxin-class Antibacterial, CorticosteroidStart: 05-19-2023 End: 65-15-1739kurldznj-polymyxin-hydrocortisone (Cortisporin) 3.5-90667-4 otic suspension Indications: Acute swimmer's ear of right side Administer 3-4 drops into each ear in the morning and 3-4 drops in the evening and 3-4 drops before bedtime. Do all this for 7 days. 10 mL 0 05/19/2023 05/26/2023 Expiredra cetirzne 10mg tab 60ct (3 sources) End: 96-28-1320ivug 1 tablet by mouth once dailyra cetirzne 10mg tab 60ct take 1 tablet by mouth once daily 06/02/2024 completed Not Available Not Available Not Available Problems Active Problems Problem ClassificationProblemDateDocumented DateEpisodic/ChronicCardiac dysrhythmias (2 sources)Bradycardia; Translations: [Bradycardia, unspecified]Onset: 01-24-2025 Resolved: 14-86-2063TqjshseqHawgcbgkhvzie and procreative management (5 sources)Encounter for sterilization; Translations: [ENCOUNTER FOR STERILIZATION]Onset: 55-09-1677ZcnzxgltPavqyfse; convulsions (1 source)Epilepsy, unspecified, not intractable, without status epilepticus; Translations: [EPILEPSY UNS NOTINTRACT W/O SE]Onset: 56-51-1837MhpxtoxPkaspjxen hypertension (10 sources)Essential hypertension; Translations: [Essential (primary) hypertension]Onset: 797370-08-5694SuwvwjrNequwtmcsdro complicating ; childbirth and the puerperium (13 sources)Unspecified pre-existing hypertension complicating , third trimester; Translations: [Unspecified pre-existing hypertension complicating childbirth]Onset: 74-13-2531AcoansuHlbrzebtekrmb and screening for infectious disease (1 source)Encounter for screening for human papillomavirus (HPV); Translations: [ENC SCREENING HUMAN PAPILLOMAVIRUS]Onset: 45-82-7359SrladhvsIlrmnht and fatigue (2 sources)Fatigue; Translations: [Other fatigue]Onset: 01-24-2025 Resolved: 56-09-2909OczfmjppFaxol ear and sense organ disorders (2 sources)Conductive hearing loss, unilateral, right ear, with unrestricted hearing on the contralateral side; Translations: [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]Onset: 01-24-2025 Resolved: 76-62-7627YbaauhjFqgsy ear and sense organ disorders (2 sources)Acute otitis externa; Translations: [Swimmer's ear, right ear] 93-33-0768EvvmpetcPrvtt endocrine disorders (10 sources)Polycystic ovary syndrome; Translations: [Polycystic ovarian syndrome]Onset: 034008-80-0779WlnhlbfXbcvp nutritional; endocrine; and metabolic disorders (10 sources)Obesity caused by energy imbalance; Translations: [Other obesity due to excess calories]Onset: 021448-24-8554QongkuvXazjh screening for suspected conditions (not mental disorders [...] Translations: [SECOND DEG PERINEAL LAC DUR DELIV]Onset: 76-22-9902CsafivggAavva complications of (1 source)Diseases of the nervous system complicating , third trimester; Translations: [DISEASES NERV SYS COMP PREG 3RD TRI]Onset: 05-08-2021 EpisodicOther and delivery including normal (5 sources)Single live ; Translations: [Encounter for supervision of normal , unspecified, thirdtrimester]Onset: 32-39-8918CjojtpnrNpmygljo codes; unclassified (1 source)37 weeks gestation of ; Translations: [37 WEEKS GESTATION OF ]Onset: 81-94-6535ZkuoilykJeytxmap codes; unclassified (1 source)Acquired absence of other specified parts of digestive tract; Translations: [ACQ ABSENCE OTH PART DIGESTV TRACT]Onset: 75-52-0150Vnyrfown Residual codes; unclassified (1 source)36 weeks gestation of ; Translations: [36 WEEKS GESTATION OF ]Onset: 40-82-9915CjztcfyqBjsudenz codes; unclassified (1 source)35 weeks gestation of ; Translations: [35 WEEKS GESTATION OF ]Onset: 96-01-3943CkuguchzIfqqoxtd codes; unclassified (1 source)34 weeks gestation of ; Translations: [34 WEEKS GESTATION OF ]Onset: 02-41-1902DonllxkpNvzjgzfl codes; unclassified (1 source)33 weeks gestation of ; Translations: [33 WEEKS GESTATION OF ]Onset: 74-46-7609FvachujfTnzreuki codes; unclassified (1 source)32 weeks gestation of ; Translations: [32 WEEKS GESTATION OF ]Onset: 69-14-7336ZkaqxvdiSppqptti codes; unclassified (1 source)27 weeks gestation of ; Translations: [27 WEEKS GESTATION OF ]Onset: 13-89-0835IwamaixjAdkexrnky cord complication (1 source)Labor and delivery complicated by cord around neck, without compression, not applicable or unspecified; Translations: [L AND D COMP CORD NECK NO COMPRS NA/UNS]Onset: 30-23-7615Xtjkknpr Results Test NameValueInterpretationReference RangeFacilityIGP,APTIMA HPV,AGE GDLNon 27-48-7140YPB GDLN ACOG TESTINGNote.NOMS HealthcareComment on above:TESTS RESULT FLAG UNITS REF RANGE LAB Clinician Provided Cytology Information Source.............Cervix;Endocervix No. of containers..01 ThinPrep Vial Age Algo ACOG Geeta... 28 FLAG LEGEND: L-Low Normal,H-High Normal,LL-Alert Low,HH-Alert High <-Panic Low,>-Panic High,A-Abnormal,AA-Critical Abnormal Performed at: 01 =[address] [address] Sharmin Smith MD, HPV APTIMANegativeNegativeNOMS HealthcareComment on above:This nucleic acid amplification test detects fourteen high- risk HPV types (16,18,31,33,35,39,45,51,52,56,58,59,66,68) without differentiation. Performed at: [facility] [id number] Coal Grader: Sharmin Smith MD, Phone: [phone] Performed at: [facility] [id number] Coal Grader: Sharmin Smith MD, Phone: [phone] IGP, APTIMA HPV, RFX 16/18,45Note.NOMS HealthcareComment on above:TESTS RESULT FLAG UNITS REF RANGE LAB DIAGNOSIS: 02 NEGATIVE FOR INTRAEPITHELIAL LESION OR MALIGNANCY. Specimen adequacy: 02 Satisfactory for evaluation. Endocervical and/or squamous metaplastic cells (endocervical component) are present. Performed by: Isis Verduzco, Time Study Engineer ([facility] [place] . 02 Note: Note 02 The Pap [...] This liquid based ThinPrep(R) pap test was interpreted using the Meilapp.com(R) Visualnest(TM) Cervical Algorithm whole slide imaging system. HPV Genotype Reflex Note 02 Criteria not met, HPV Genotype not performed. FLAG LEGEND: L-Low Normal,H-High Normal,LL-Alert Low,HH-Alert High <-Panic Low,>-Panic High,A-Abnormal,AA-Critical Abnormal Performed at: [address] [address] Sharmin Smith MD, BRUSH-SPATULA CERVIX ENDOCERVIX CLINISYNCNOLiberty [facility] W Auto Differential panel (Bld)on 11-25-2024 Basophils (Bld) [#/Vol]0.1 10*3/uLInvalid Interpretation Code0.0-0.2[facility] ([facility])Basophils/100 WBC (Bld)1 %Invalid Interpretation Codenot estab. [facility] ([facility])Eosinophils (Bld) [#/Vol]0.3 10*3/uLInvalid Interpretation Code0.0-0.4[facility] ([facility])Eosinophils/100 WBC (Bld)5 % Invalid Interpretation Codenot estab.[facility] ([facility])Erythrocyte distribution width (RBC) [Ratio]12.1 %Invalid Interpretation Code11.7-15.4 [facility] ([facility])Hematocrit (Bld) [Volume fraction]41.6 %Invalid Interpretation Code34.0-46.6[facility] ([facility])Hemoglobin (Bld) [Mass/Vol] 13.8 g/dLInvalid Interpretation Code11.1-15.9[facility] ([facility])immature cellsNPInvalid Interpretation CodeLabcorp ([facility])Immature granulocytes (Bld) [#/Vol]0.0 10*3/uLInvalid Interpretation Code0.0-0.1[facility] ([facility])Immature granulocytes/100 WBC (Bld)0 %Invalid Interpretation Codenot estab. [facility] ([facility])Lymphocytes (Bld) [#/Vol]1.6 10*3/uLInvalid Interpretation Code0.7-3.1[facility] ([facility])Lymphocytes/100 WBC (Bld)33 % Invalid Interpretation Codenot estab.[facility] ([facility])MCH (RBC) [Entitic mass]30.9 pgInvalid Interpretation Code26.6-33.0[facility] ([facility])MCHC (RBC) [Mass/Vol]33.2 g/dLInvalid Interpretation Code31.5-35.7[facility] ([facility])MCV (RBC) [Entitic vol]93 fLInvalid Interpretation Vqae34-08Aloltcs ([facility])Monocytes (Bld) [#/Vol]0.6 10*3/uLInvalid Interpretation Code 0.1-0.9[facility] ([facility])Monocytes/100 WBC (Bld)12 %Invalid Interpretation Codenot estab.[facility] ([facility])Morphology James (Bld) [Interp]NPInvalid Interpretation CodeLabcorp ([facility])Neutrophils (Bld) [#/Vol]2.4 10*3/uLInvalid Interpretation Code1.4-7.0[facility] ([facility]) Neutrophils/100 WBC (Bld)49 %Invalid Interpretation Codenot estab.[facility] ([facility])Nucleated RBC/100 WBC (Bld) [Ratio]NPInvalid Interpretation CodeLabcorp ([facility])Platelets (Bld) [#/Vol]231 10*3/uLInvalid Interpretation Vhhx443-895Upaumuz ([facility])RBC (Bld) [#/Vol]4.46 10*6/uL Invalid Interpretation Code3.77-5.28[facility] ([facility])WBC (Bld) [#/Vol] 5.0 10*3/uLInvalid Interpretation Code3.4-10.8[facility] ([facility]) Comprehensive metabolic 2000 panelon 46-18-1417Zmflbhp [Mass/Vol]4.2 g/dLInvalid Interpretation Code3.9-4.9[facility] ([facility])ALP [Catalytic activity/Vol] 57 U/LInvalid Interpretation Ekaj98-437Whdqkzg ([facility])ALT [Catalytic activity/Vol]12 U/LInvalid Interpretation Code0-32[facility] ([facility])AST [Catalytic activity/Vol]18 U/LInvalid Interpretation Code0-40[facility] ([facility])Bilirubin [Mass/Vol]0.2 mg/dLInvalid Interpretation Code0.0-1.2[facility] ([facility])Calcium [Mass/Vol]8.9 mg/dLInvalid Interpretation Code8.7-10.2 [facility] ([facility])Chloride [Moles/Vol]104 mmol/LInvalid Interpretation Ndsb28-162Okwhngc ([facility])CO2 [Moles/Vol]21 mmol/LInvalid Interpretation Lppg06-39Yzxrvxl ([facility])Creatinine [Mass/Vol]0.76 mg/dL Invalid Interpretation Code0.57-1.00[facility] ([facility])GFR/1.73 sq M.predicted among non-blacks MDRD (S/P/Bld) [Vol rate/Area]104 mL/min/{1.73_m2} Invalid Interpretation Code>59[facility] ([facility])Globulin (S) [Mass/Vol] 2.7 g/dLInvalid Interpretation Code1.5-4.5[facility] ([facility])Glucose [Mass/Vol]94 mg/dLInvalid Interpretation Ajio56-38Myzgvpa ([facility]) Potassium [Moles/Vol]4.4 mmol/LInvalid Interpretation Code3.5-5.2[facility] ([facility])Protein [Mass/Vol]6.9 g/dLInvalid Interpretation Code6.0-8.5 [facility] ([facility])Sodium [Moles/Vol]138 mmol/LInvalid Interpretation Code 134-144[facility] ([facility])Urea nitrogen [Mass/Vol]14 mg/dLInvalid Interpretation Code6-20[facility] ([facility])Urea nitrogen/Creatinine [Mass ratio]18 mg/mgInvalid Interpretation Code9-23[facility] ([facility])HEMOGLOBIN A1Con 71-05-9499YlT3q (Bld) [Mass fraction]5.0 %Invalid Interpretation Code 4.8-5.6[facility] ([facility])Comment on above:Prediabetes: 5.7 - 6.4 Diabetes: >6.4 Glycemic control for adults with diabetes: <7.0Lipid 1996 panelon 57-65-6911Jmrprlqfvdj [Mass/Vol]130 mg/dLInvalid Interpretation Syiv735-199 [facility] ([facility])Cholesterol in HDL [Mass/Vol]46 mg/dLInvalid Interpretation Code>39[facility] ([facility])Cholesterol in LDL [Mass/Vol]74 mg/dLInvalid Interpretation Code0-99[facility] ([facility])Cholesterol in VLDL [Mass/Vol]10 mg/dLInvalid Interpretation Code5-40[facility] ([facility]) Cholesterol.total/Cholesterol in HDL [Mass ratio]2.8 {ratio}Invalid Interpretation Code0.0-4.4[facility] ([facility])Comment on above:T. Chol/HDL Ratio Men Women 1/2 Avg.Risk 3.4 3.3 Avg.Risk 5.0 4.4 2X Avg.Risk 9.6 7.1 3X Avg.Risk 23.4 11.0LDL calc comment:NPInvalid Interpretation CodeLabcorp ([facility])Triglyceride [Mass/Vol]44 mg/dLInvalid Interpretation Code0-149 [facility] ([facility])IGP,APTIMA HPV,AGE GDLNon 80-84-6272BFF GDLN ACOG TESTINGNote.NOMS HealthcareComment on above:TESTS RESULT FLAG UNITS REF RANGE LAB Clinician Provided Cytology Information Source.............Cervix;Endocervix No. of containers..01 ThinPrep Vial Age Maria Luisa AVILES Geeta... 28 FLAG LEGEND: L-Low Normal,H-High Normal,LL-Alert Low,HH-Alert High <-Panic Low,>-Panic High,A-Abnormal,AA-Critical Abnormal Performed at: 01 =G [address] [place] [address] Sharmin Smith MD, HPV APTIMANegativeNegativeNOMS HealthcareComment on above:This nucleic acid amplification test detects fourteen high- risk HPV types (16,18,31,33,35,39,45,51,52,56,58,59,66,68) without differentiation. Performed at: =[address] [id number] Coal Grader: Sharmin Smith MD, Phone: [phone] Performed at: - [address] [id number] Coal Grader: Sharmin Smith MD, Phone: [phone] IGP, APTIMA HPV, RFX 16/18,45Note.NOMS HealthcareComment on above:TESTS RESULT FLAG UNITS REF RANGE LAB DIAGNOSIS: 02 NEGATIVE FOR INTRAEPITHELIAL LESION OR MALIGNANCY. Specimen adequacy: 02 Satisfactory for evaluation. Endocervical and/or squamous metaplastic cells (endocervical component) are present. Performed by: 02 Indigo Mcnamara, High School Hvac R Instructor ([facility] [place] . 02 Note: Note 02 The Pap [...] Low,>-Panic High,A-Abnormal,AA-Critical Abnormal Performed at: [address] [address] Sharmin Smith MD, BRUSH-SPATULA CERVIX ENDOCERVIX CLINISYNCNOMS [facility] AUTO DIFFon 22-67-2725MGQG #0.1 103/ulNormal0.0-0.1 [facility] HospitalComment on above:Performed By: #### CBC #### [facility] [address] [address] [address] Carlos DrewBasophils/100 WBC (Bld)1.2 %Normal0.2-2.0[facility] Comment on above:Performed By: #### CBC #### [facility] [address] [address] [address] Carlos Kc #0.3 103/ulNormal0.0-0.7The [facility] HospitalComment on above: Performed By: #### CBC #### [facility] [address] [address] [address] Carlos Gironosinophils/100 WBC (Bld)4.8 %Normal0.9-7.0[facility] Comment on above:Performed By: #### CBC #### [facility] [address] [place] [address] Dr. Carlos Gironrythrocyte distribution width (RBC) [Ratio]12.3 %Oysqmf02.0-15.0 [facility] on above:Performed By: #### CBC #### [facility] [address] [place] [address] Dr. Carlos DrewHematocrit (Bld) [Volume fraction]39.5 %Nyomvm26.0-48.0[facility] HospitalComment on above:Performed By: #### CBC #### [facility] [address] [place] [address] Dr. Carlos DrewHemoglobin (Bld) [Mass/Vol]13.3 g/xYWezsef25.0-16.0[facility] on above:Performed By: #### CBC #### [facility] [address] [place] [address] Dr. Carlos Cheng #0.02 10e3/ulNormal0.00-0.03The [facility] HospitalComment on above:Performed By: #### CBC #### [facility] [address] [place] [address] Dr. Carlos Cheng %0.3 %Normal0.0-0.5[facility] on above: Performed By: #### CBC #### [facility] [address] [place] [address] Dr. Carlos Reyes #1.9 103/ulNormal1.2-3.8The [facility] HospitalComment on above:Performed By: #### CBC #### [facility] [address] [place] [address] Dr. Carlos Pabonmphocytes/100 WBC (Bld)32.2 %Mhmyag61.5-60.0The [facility] HospitalComment on above:Performed By: #### CBC #### [facility] [address] [place] [address] Dr. Carlos BrooksUAL DIFF REQNONormalThe [facility] HospitalComment on above: Performed By: #### CBC #### [facility] [address] [place] [address] Dr. Carlos Medina (RBC) [Entitic mass]30.0 boUpvwwy66.7-34.0The [facility] HospitalComment on above:Performed By: #### CBC #### [facility] [address] [place] [address] Dr. Carlos Medina (RBC) [Mass/Vol]33.7 g/dIZguwtx25.9-35.2The [facility] HospitalComment on above:Performed By: #### CBC #### [facility] [address] [place] [address] Dr. Carlos Medina (RBC) [Entitic vol]89.2 nCWcjgit69.0-99.0The [facility] HospitalComment on above:Performed By: #### CBC #### [facility] [address] [place] [address] Dr. Carlos Alexis #0.5 103/ulNormal0.3-0.8The [facility] HospitalComment on above:Performed By: #### CBC #### [facility] [address] [place] [address] Dr. Carlos Deviocytes/100 WBC (Bld)7.9 %Normal1.7-12.0The [facility] on above:Performed By: #### CBC #### [facility] [address] [place] [address] Dr. Carlos Sharma #3.1 103/ulNormal1.4-6.5The [facility] HospitalComment on above:Performed By: #### CBC #### [facility] [address] [address] [address] Carlos DrewNeutrophils/100 WBC (Bld)53.6 %Ztrurt30.0-75.0The [facility] HospitalComment on above:Performed By: #### CBC #### [facility] [address] [address] [address] Carlos DrewPlatelet mean volume (Bld) [Entitic vol]10.7 fLNormal9.5-13.5The [facility] HospitalComment on above:Performed By: #### CBC #### [facility] [address] [place] [address] Dr. Carlos DrewPLT245 103/qwAgnqjp675-052Fmv [facility] Hospitalment on above: Performed By: #### CBC #### [facility] [address] [place] [address] Dr. Carlos DrewRBC4.43 106/ulNormal4.20-5.40The [facility] HospitalComment on above:Performed By: #### CBC #### [facility] [address] [place] [address] Dr. Carlos DrewWBC5.8 103/ulNormal4.0-11.0The [facility]ment on above: Performed By: #### CBC #### [facility] [address] [place] [address] Dr. Carlos DrewCovid-19 PCR (CVDTBH)on 10-50-9292AZIC-CoV-2 (COVID-19) RNA MIKIE+probe Ql (Unsp spec)Not detectedNormalNOT DETECTEDThe [facility] Comment on above:Result Comment: This test is not yet approved or cleared by the [place] FDA. When there are no FDA-approved or cleared tests available, and other criteria are met, FDA can make tests available under an emergency access mechanism called an Emergency Use Authorization (EUA). The EUA for this test is supported by the Digestion Operator of Health and Human Service's (HHS's) declaration [...] consistent with SARS-CoV-2.Performed By: #### CVDTBH #### [facility] [address] [place] [address] Dr. Carlos Menchaca QUANT HCGon 32-33-5342PQT QUANT1 mIU/mLNSelect Medical Specialty Hospital - Cleveland-FairhillComment on above:Performed By: #### PREGQNT #### [facility] [address] [place] [address] Dr. Carlos Encarnacion RANGESEE BELOWCleveland Clinic Avon HospitalComment on above: Result Comment: 5-50 0.2-1 WEEK 50-500 1-2 WEEKS 100-5,000 2-3 WEEKS 500-10,000 3-4 WEEKS 1,000-50,000 4-5 WEEKS 10,000-100,000 5-6 WEEKS 15,000-200,000 6-8 WEEKS 10,000-100,000 2-3 MONTHSPerformed By: #### PREGQNT #### [facility] [address] [place] [address] Dr. Carlos Steen ACOG PANEL 2: 30 to 65on 12-06-2021..[facility] HospitalComveterans affairs medical center on above:Result Comment: Performed at: WBPerformed By: #### CVDTBH #### [facility] [address] [place] [address] Dr. Carlos Caldera Gdln ACOG Kkqgblg46-08NudgzpQxpCleveland Clinic Avon HospitalComment on above:Performed By: #### CVDTBH #### [facility] [address] [place] [address] Dr. Carlos DrewDIAGNOSIS:[facility] on above: Result Comment: NEGATIVE FOR INTRAEPITHELIAL LESION OR MALIGNANCY. Performed at: WBPerformed By: #### CVDTBH #### [facility] [address] [place] [address] Dr. Carlos DrewHPV AptimaNegativeNormalNegativeThe Memorial Health System on above:Result Comment: This nucleic acid amplification test detects fourteen high-risk HPV types (16,18,31,33,35,39,45,51,52,56,58,59,66,68) without differentiation. Performed at: =GPerformed By: #### CVDTBH #### [facility] [address] [place] [address] Dr. Cralos DrewMethodology:CommentNoCleveland Clinic Lutheran Hospital on above: Result Comment: This liquid based ThinPrep(R) pap test was screened with the use of an image guided system. Performed at: WBPerformed By: #### CVDTBH #### [place] [address] Dr[address] Carlos DrewNote:CommentGenesis Hospital on above:Result Comment: The Pap smear is a screening test designed to aid in the detection of premalignant and malignant conditions of the uterine cervix. It is not a diagnostic procedure and should not be used as the sole means of detecting cervical cancer. Both false-positive and false-negative reports do occur. . Performed at: WBPerformed By: #### CVDTBH #### [place] [address] Dr[address] Carlos DrewPerformed by:CommentNoCleveland Clinic Lutheran Hospital on above: Result Comment: Rocio De Leon, High School Hvac R Instructor (ASCP) Performed at: WBPerformed By: #### CVDTBH #### [place] [address] Dr[address] Carlos DrewSpecimen adequacy:CommentGenesis Hospital on above:Result Comment: Satisfactory for evaluation. Endocervical and/or squamous metaplastic cells (endocervical component) are present. Performed at: WBPerformed By: #### CVDTBH #### [facility] [address] [address] [address] Carlos DrewComprehensive Metabolic Panelon [id number] [Mass/Vol]4.4 g/dLNormal3.6-5.1[facility] SpecialistComment on above:Performed By: #### LIPD, CMP #### [facility] [address] [place], [place] [id number]/Globulin [Mass ratio]1.7 {ratio}Normal1.0-2.5Norttempe [facility]n [facility] SpecialistComment on above:Performed By: #### LIPD, CMP #### [facility] [address] [place], [place] [id number] [Catalytic activity/Vol]65 U/VCgyhpz11-730Daeaulpp [facility] SpecialistComment on above:Performed By: #### LIPD, CMP #### [facility] [address] [place], [place] [id number] [Catalytic activity/Vol]16 U/LNormal6-33Northern [facility] SpecialistComment on above:Result Comment: 03/19/2021 Female reference range changed.Performed By: #### LIPD, CMP #### [facility] [address] [place], [place] [id number] gap [Moles/Vol]15 mmol/GBnburz09-53Ikvqpqer [facility] SpecialistComment on above:Result Comment: Effective 04/24/2019 reference range changed.Performed By: #### LIPD, CMP #### [facility] [address] [place], [place] [id number] [Catalytic activity/Vol]20 U/LNormal9-34NortCommunity [facility] Center SpecialistComment on above:Performed By: #### LIPD, CMP #### [facility] [address] [place], [place] [id number] [Mass/Vol]0.37 mg/dLNormal0.30-1.20[address]tem[address] [facility]n [facility] SpecialistComment on above:Performed By: #### LIPD, CMP #### [facility] [address] [place], [place] [id number]/CREA18 RatioNormal6-22NortSum[facility] Health Physician Comment on above:Performed By: #### LIPD, CMP #### [facility] [address] [place], [place] [id number] [Mass/Vol]9.3 mg/dLNormal8.6-10.2Northern [facility] SpecialistComment on above:Performed By: #### LIPD, CMP #### [facility] [address] [place], [place] [id number] [Moles/Vol]107 mmol/FHdfepz68-645Ztfrezxl [place] [facility] SpecialistComment on above:Performed By: #### LIPD, CMP #### [facility] [address] [place], [place] [id number] [Moles/Vol]23 mmol/ZSougaf73-42Bwpdnlvr [facility] SpecialistComment on above:Performed By: #### LIPD, CMP #### [facility] [address] [place], [place] [id number] [Mass/Vol]0.7 mg/dLNormal0.6-1.4[facility]n [facility] SpecialistComment on above:Performed By: #### LIPD, CMP #### [facility] [address] [place], [place] [id number] mL/min/1.34e3Hzjgsr>60NortCommunity [facility] Center SpecialistComment on above:Performed By: #### LIPD, CMP #### [facility] [address] [place], [place] [id number] mL/min/1.54y5Yqifuw>60NortCommunity [facility] Center SpecialistComment on above:Performed By: #### LIPD, CMP #### [facility] [address] [place], [place] [id number] (S) [Mass/Vol]2.6 g/dLNormal1.9-3.7[address]n [facility] SpecialistComment on above:Performed By: #### LIPD, CMP #### [facility] [address] [place], [place] [id number] [Mass/Vol]95 mg/cPNffylj70-18Fkyiigjf [place] [facility] SpecialistComment on above:Result Comment: For FASTING Glucose --- ADA reference ranges: Normal 65-99 mg/dl Prediabetes 100-125 Diabetes >/= 126Performed By: #### LIPD, CMP #### [facility] [address] [place], [place] [id number] [Moles/Vol]4.0 mmol/LNormal3.5-5.5NoHenry County Hospital SpecialistComment on above:Performed By: #### LIPD, CMP #### [facility] [address] [place], [place] [id number] [Mass/Vol]7.0 g/dLNormal6.1-8.1NortherAvita Health System SpecialistComment on above:Performed By: #### LIPD, CMP #### [facility] [address] [place], [place] [id number] [Moles/Vol]141 mmol/HVrryqq144-528Xyqkxgfa [place] [facility] SpecialistComment on above:Performed By: #### LIPD, CMP #### [facility] [address] [place], [place] [id number] nitrogen [Mass/Vol]12 mg/dLNormal7-25NoHenry County Hospital SpecialistComment on above:Performed By: #### LIPD, CMP #### [facility] [address] [place], [place] [id number] Panelon [id number] [Mass/Vol]157 mg/dLNormal 125-200NoHenry County Hospital SpecialistComment on above:Result Comment: Low risk < 200mg/dL Borderline risk 201-239 mg/dl High risk > or equal to 240Performed By: #### LIPD, CMP #### [facility] [address] [place], [place] [id number] in HDL [Mass/Vol]46 mg/dLNormal>40NoHenry County Hospital SpecialistComment on above:Result Comment: High Cardiovascular Risk HDL <40 mg/dL Low Cardiovascular Risk HDL > or equal to 60 mg/dlPerformed By: #### LIPD, CMP #### [facility] [address] [place], [place] [id number] in LDL [Mass/Vol]96 mg/dLNoCorey Hospital SpecialistComment on above:Result Comment: LDL ATP III CLASSIFICATION LDL less than 100 mg/dl Optimal LDL 100-129 mg/dl Near or above optimal LDL 130-159 Borderline high LDL 160-189 High LDL greater than 189 mg/dl Very HighPerformed By: #### LIPD, CMP #### [facility] [address] [place], [place] [id number] in VLDL [Mass/Vol]15 mg/dLNormSelect Medical [facility] SpecialistComment on above:Performed By: #### LIPD, CMP #### [facility] [address] [place], [place] [id number].total/Cholesterol in HDL [Mass ratio]3 {ratio} NormalNoMercy Health Willard HospitalComment on above:Performed By: #### LIPD, CMP #### [facility] [address] [place], [place] [id number] [Mass/Vol]74 mg/qTHxlnho07-968Kkwojpjk [place] [facility] SpecialistComment on above:Result Comment: TRIG ATPIII CLASSIFICATIONS TRIG less than 150 mg/dl Normal TRIG 150-199 mg/dl Borderline High TRIG 200-500 mg/dl High TRIG greather than 500 mg/dl Very HighPerformed By: #### LIPD, CMP #### [facility] [address] [place], [place] [id number] AUTO DIFFon [id number] #0.0 103/ulNormal0.0-0.1The [facility] HospitalComment on above:Performed By: #### CBC #### [facility] [address] [place] [address] Dr. Carlos Kumarphils/100 WBC (Bld)0.3 %Normal0.2-2.0[facility] Comment on above:Performed By: #### CBC #### [facility] [address] [address] [address] Carlos Kc #0.1 103/ulNormal0.0-0.7The [facility] HospitalComment on above: Performed By: #### CBC #### [facility] [address] [place] [address] Dr. Carlos Gironosinophils/100 WBC (Bld)1.2 %Normal0.9-7.0[facility] Comment on above:Performed By: #### CBC #### [facility] [address] [place] [address] Dr. Carlos Gironrythrocyte distribution width (RBC) [Ratio]13.8 %Rkhrxj37.0-15.0 The [facility] HospitalComment on above:Performed By: #### CBC #### [facility] [address] [place] [address] Dr. Carlos DrewHematocrit (Bld) [Volume fraction]34.0 %Critically low36.0-48.0 The [facility] HospitalComment on above:Performed By: #### CBC #### [facility] [address] [place] [address] Dr. Carlos DrewHemoglobin (Bld) [Mass/Vol]11.6 g/dLCritically low12.0-16.0The [facility] HospitalComment on above:Performed By: #### CBC #### [facility] [address] [place] [address] Dr. Carlos Cheng #0.03 10e3/ulNormal0.00-0.03The [facility] HospitalComment on above:Performed By: #### CBC #### [facility] [address] [place] [address] Dr. Carlos Cheng %0.3 %Normal0.0-0.5The [facility] HospitalComment on above: Performed By: #### CBC #### [facility] [address] [place] [address] Dr. Carlos Reyes #1.4 103/ulNormal1.2-3.8The [facility] HospitalComment on above:Performed By: #### CBC #### [facility] [address] [place] [address] Dr. Carlos Pabonmphocytes/100 WBC (Bld)13.2 %Critically low20.5-60.0The [facility] HospitalComment on above:Performed By: #### CBC #### [facility] [address] [place] [address] Dr. Carlos Mejia DIFF REQNONormalThe [facility] HospitalComment on above: Performed By: #### CBC #### [facility] [address] [place] [address] Dr. Carlos Medina (RBC) [Entitic mass]30.1 eyDwvmet31.7-34.0The [facility] HospitalComment on above:Performed By: #### CBC #### [facility] [address] [place] [address] Dr. Carlos Medina (RBC) [Mass/Vol]34.1 g/tBUtuuwo08.9-35.2The [facility] HospitalComment on above:Performed By: #### CBC #### [facility] [address] [place] [address] Dr. Carlos Medina (RBC) [Entitic vol]88.3 sOFqepro04.0-99.0The [facility] HospitalComment on above:Performed By: #### CBC #### [facility] [address] [place] [address] Dr. Carlos Alexis #1.0 103/ulCritically high0.3-0.8ThSt. [facility]'s [facility] Comment on above:Performed By: #### CBC #### [facility] [address] [place] [address] Dr. Carlos Deviocytes/100 WBC (Bld)9.3 %Normal1.7-12.0[facility] Comment on above:Performed By: #### CBC #### [facility] [address] [place] [address] Dr. Carlos Sharma #7.8 103/ulCritically high1.4-6.5[facility] Comment on above:Performed By: #### CBC #### [facility] [address] [place] [address] Dr. Carlos DrewNeutrophils/100 WBC (Bld)75.7 %Critically high43.0-75.0The Mercy Hospitalment on above:Performed By: #### CBC #### [facility] [address] [place] [address] Dr. Carlos DrewPlatelet mean volume (Bld) [Entitic vol]10.7 fLNormal9.5-13.5The [facility] HospitalComment on above:Performed By: #### CBC #### [facility] [address] [place] [address] Dr. Carlos DrewPLT157 103/zaTbyger857-635Iwk [facility] on above: Performed By: #### CBC #### [facility] [address] [place] [address] Dr. Carlos DrewRBC3.85 106/ulCritically low4.20-5.40[facility] on above:Performed By: #### CBC #### [facility] [address] [place] [address] Dr. Carlos DrewWBC10.3 103/ulNormal4.0-11.0[facility] on above:Performed By: #### CBC #### [facility] [address] [place] [address] Dr. Carlos DrewASYMPTOMATIC COVID-19 ANTIGENon [id number] StatementSEE BELOW NormalThe [facility] on above:Result Comment: This test has not [...] is revoked sooner.Performed By: #### CVDAGA #### [facility] [address] [place] [address] Dr. Carlos Quintero-CoV-2 (COVID-19) RNA MIKIE+probe Ql (Unsp spec)NegativeNormal NEGATIVEThe [facility] Valley HospitalComment on above:Result Comment: Negative results are presumptive. They do not preclude infection and should not be used as the sole basis for treatment decisions. Additional confirmatory testing by a molecular method should be considered.Performed By: #### CVDAGA #### [facility] [address] [place] [address] Dr. Carlos Wesley AUTO DIFFon [id number] #0.1 103/ulNormal0.0-0.1The [facility] HospitalComment on above:Performed By: #### CBC #### [facility] [address] [place] [address] Dr. Carlos DrewBasophils/100 WBC (Bld)0.5 %Normal0.2-2.0[facility] Comment on above:Performed By: #### CBC #### [facility] [address] [place] [address] Dr. Carlos Kc #0.2 103/ulNormal0.0-0.7The [facility] HospitalComment on above: Performed By: #### CBC #### [facility] [address] [place] [address] Dr. Carlos Gironosinophils/100 WBC (Bld)2.0 %Normal0.9-7.0[facility] Comment on above:Performed By: #### CBC #### [facility] [address] [place] [address] Dr. Carlos Gironrythrocyte distribution width (RBC) [Ratio]13.8 %Fwucvg68.0-15.0 [facility] HospitalComment on above:Performed By: #### CBC #### [facility] [address] [place] [address] Dr. Carlos DrewHematocrit (Bld) [Volume fraction]36.3 %Lpgqgn03.0-48.0The [facility] HospitalComment on above:Performed By: #### CBC #### [facility] [address] [place] [address] Dr. Carlos DrewHemoglobin (Bld) [Mass/Vol]12.6 g/xXAovnvx09.0-16.0The [facility] HospitalComment on above:Performed By: #### CBC #### [facility] [address] [place] [address] Dr. Carlos Cheng #0.05 10e3/ulCritically high0.00-0.03[facility] Comment on above:Performed By: #### CBC #### [facility] [address] [place] [address] Dr. Carlos Cheng %0.5 %Normal0.0-0.5The [facility] HospitalComment on above: Performed By: #### CBC #### [facility] [address] [place] [address] Dr. Carlos Reyes #1.8 103/ulNormal1.2-3.8The [facility] HospitalComment on above:Performed By: #### CBC #### [facility] [address] [place] [address] Dr. Carlos Rojashocytes/100 WBC (Bld)18.5 %Critically low20.5-60.0The [facility] HospitalComment on above:Performed By: #### CBC #### [facility] [address] [place] [address] Dr. Carlos BrooksUAL DIFF REQNONormalThe [facility] HospitalComment on above: Performed By: #### CBC #### [facility] [address] [place] [address] Dr. Carlos Alanis (RBC) [Entitic mass]30.4 idPbxotn25.7-34.0The [facility] HospitalComment on above:Performed By: #### CBC #### [facility] [address] [place] [address] Dr. Carlos MedinaHC (RBC) [Mass/Vol]34.7 g/kOEbcroc20.9-35.2The [facility] HospitalComment on above:Performed By: #### CBC #### [facility] [address] [address] [address] Carlos MedinaV (RBC) [Entitic vol]87.5 cHCzcnrq24.0-99.0The [facility] HospitalComment on above:Performed By: #### CBC #### [facility] [address] [address] [address] Carlos Alexis #0.9 103/ulCritically high0.3-0.8[facility] Comment on above:Performed By: #### CBC #### [facility] [address] [place] [address] Dr. Carlos Deviocytes/100 WBC (Bld)9.0 %Normal1.7-12.0[facility] Comment on above:Performed By: #### CBC #### [facility] [address] [place] [address] Dr. Carlos Sharma #6.8 103/ulCritically high1.4-6.5ThSt. [facility]'s [facility] Comment on above:Performed By: #### CBC #### [facility] [address] [place] [address] Dr. Carlos Phelpsutrophils/100 WBC (Bld)69.5 %Kvbggb88.0-75.0The [facility] HospitalComment on above:Performed By: #### CBC #### [facility] [address] [place] [address] Dr. Carlos Torreslet mean volume (Bld) [Entitic vol]10.8 fLNormal9.5-13.5The [facility] HospitalComment on above:Performed By: #### CBC #### [facility] [address] [place] [address] Dr. Carlos McraeT212 103/fzNeobbb172-230Tsn [facility] HospitalComment on above: Performed By: #### CBC #### [facility] [address] [place] [address] Dr. Carlos DrewRBC4.15 106/ulCritically low4.20-5.40The [facility] HospitalComment on above:Performed By: #### CBC #### [facility] [address] [address] [address] Carlos DrewWBC9.7 103/ulNormal4.0-11.0The [facility] HospitalComment on above: Performed By: #### CBC #### [facility] [address] [address] [address] Carlos DrewCovid-19 PCR (CVDTB)on [id number]-CoV-2 (COVID-19) RNA MIKIE+probe Ql (Unsp spec)Not detectedNormalNOT DETECTEDThe [facility] Comment on above:Result Comment: This test is not yet approved or cleared by the [place] FDA. When there are no FDA-approved or cleared tests available, and other criteria are met, FDA can make tests available under an emergency access mechanism called an Emergency Use Authorization (EUA). The EUA for this test is supported by the [place] of Health and Human Service's (HHS's) declaration [...] consistent with SARS-CoV-2.Performed By: #### CVDTBH #### [facility] [address] [place] [address] Dr. Carlos DrewDRUG SCREEN RAPID (URINE)on [id number]I [facility] HospitalComment on above:Performed By: #### DRUGRPD #### [facility] [address] [place] [address] Dr. Carlos DrewBARNegativeNormalNEGATIVEThe Boyd HospitalComment on above: Performed By: #### DRUGRPD #### [facility] [address] [place] [address] Dr. Carlos DrewBUPNegativeNormalNEGATIVEMercy Health Allen HospitalComment on above: Performed By: #### DRUGRPD #### [facility] [address] [place] [address] Dr. Carlos DrewBZONegativeNormalNEGATIVEMercy Health Allen HospitalComment on above: Performed By: #### DRUGRPD #### [facility] [address] [place] [address] Dr. Carlos DrewCOCNegativeNormalNEGATIVEMercy Health Allen HospitalComment on above: Performed By: #### DRUGRPD #### [facility] [address] [place] [address] Dr. Carlos SpicerOhioHealth O'Bleness HospitalComment on above: Result Comment: AMP (Amphetamine): 500ng/mL, BAR (Barbituates): 200 ng/mL, BZO (Benzodiazepines): 150 ng/mL, BUP (Buprenorphine): 10 ng/mL, LEIGHTON (Cocaine): 150 ng/mL, mAMP (Methamphetamine): 500 ng/mL, MTD (Methadone): 200 ng/mL, OPI (Opiates): 100 ng/mL, OXY (Oxycodone): 100 ng/mL, PCP (Phencyclidine): 25 ng/mL, PPX (Propoxyphene): 300 ng/mL, THC (Cannabinoids): 50 ng/mL, TCA (Trycyclic Antidepressants): 300 ng/mLPerformed By: #### DRUGRPD #### [facility] [address] [place] [address] Dr. Carlos DrewDRUG CUT HEADERDRUG CLASS TEST SYSTEM CUT-OFF CONCENTRATIONS ARE FOLLOWS:NormalThe [facility] on above:Performed By: #### DRUGRPD #### [facility] [address] [place] [address] Dr. Carlos DrewmAMPNegativeNormalNEGATIVEMercy Health Allen HospitalComment on above: Performed By: #### DRUGRPD #### [facility] [address] [address] [address] Carlos DrewMTDNegativeNormalNEGATIVEMercy Health Allen HospitalComment on above: Performed By: #### DRUGRPD #### [facility] [address] [address] [address] Carlos DrewOPINegativeNormalNEGKnox Community HospitalComment on above: Performed By: #### DRUGRPD #### [facility] [address] [address] [address] Carlos DrewOXYNegativeNormalNEGKnox Community HospitalComment on above: Performed By: #### DRUGRPD #### [facility] [address] [address] [address] Carlos DrewPCPNegativeNormalNEGKnox Community HospitalComment on above: Performed By: #### DRUGRPD #### [facility] [address] [address] [address] Carlos DrewPPXNegativeNormalNEGKnox Community HospitalComment on above: Performed By: #### DRUGRPD #### [facility] [address] [address] [address] Carlos DrewTCANegativeNormalNEGKnox Community HospitalComveterans affairs medical center on above: Performed By: #### DRUGRPD #### [facility] [address] [address] [address] Carlos DrewTHCNegativeNormalNEGKnox Community HospitalComveterans affairs medical center on above: Performed By: #### DRUGRPD #### [facility] [address] [address] [address] Carlos DrewTYPE AND SCREENon [id number] AND SCREENNegativeCleveland Clinic Avon HospitalComment on above:Performed By: #### PREGQNT #### [facility] [address] [place] [address] Dr. Carlos Marin PREG BIOPHY W NON STRESSon [id number] PREG BIOPHY W NON STRESSEXAMINATION: US PREG [...] Electronically authenticated by: CYDNEY DIALLO Date: 2021-05-20 10:54NoProvidence HospitalUS PREG GROWTHon [id number] PREG GROWTHEXAMINATION: US PREG GROWTH HISTORY: Pre-existing [...] Electronically authenticated by: CYDNEY DIALLO Date: 2021-05-20 10:56[facility] HospitalGROUP B STREP CULTUREon 05-19-2021. agalactiae Ag Ql (Unsp spec)Culture Observations: NEGATIVE FOR GROUP B STREPTOCOCCUS.NormalThe [facility] HospitalComment on above: Performed By: #### PREGQNT #### [facility] [address] [place] [address] Dr. Carlos Marin PREG BIOPHY W NON STRESSon [id number] PREG BIOPHY W NON STRESSEXAMINATION: US PREG [...] Electronically authenticated by: LUCIAN BELLA Date: 2021-05-13 11:[facility] PREG BIOPHY W NON STRESSon [id number] PREG BIOPHY W NON STRESSEXAMINATION: US PREG [...] Electronically authenticated by: CYDNEY DIALLO Date: 2021-05-06 10:[facility] PREG BIOPHY W NON STRESSon [id number] PREG BIOPHY W NON STRESSEXAMINATION: US PREG [...] Electronically authenticated by: LUCIAN BELLA Date: 2021-04-29 10:28[facility] PREG BIOPHY W NON STRESSon [id number] PREG BIOPHY W NON STRESSEXAMINATION: US PREG [...] Electronically authenticated by: CYDNEY DIALLO Date: 2021-04-22 11:40[facility] PREG GROWTHon [id number] PREG GROWTHEXAMINATION: US PREG GROWTH HISTORY: Pre-existing [...] Electronically authenticated by: CYDNEY DIALLO Date: 2021-04-22 11:41[facility] PREG GROWTHon [id number] PREG GROWTHEXAMINATION: US PREG GROWTH HISTORY: Pre-existing [...] by ultrasound, 73rd percentile by expected) FL/AC: 0.384032 FL/BPD: 0.425724 HC/AC: 1.634752 GESTATIONAL AGE: Age by EDC: 27 weeks, 3 days VERÓNICA by EDC: 06/17/2021 Age by US: 29 weeks, 2 days VERÓNICA by US: 06/10/2021 IMPRESSION: 1. Single live intrauterine with growth detailed above. Electronically authenticated by: LUCIAN BELLA Date: 2021-03-27 14:59[facility] HospitalGLUCOSE - 1HRon [id number] [Mass/Vol]120 mg/dLCritically oqyb52-490Fvb [facility] HospitalComment on above:Performed By: #### GLU1HR #### [facility] [address] [place] [address] Dr. Carlos DrewHEMOGRAM AND PLATELon [id number] (Bld) [Volume fraction]35.7 %Critically low36.0-48.0The [facility] HospitalComment on above: Performed By: #### PREGQNT #### [facility] [address] [place] [address] Dr. Carlos DrewHemoglobin (Bld) [Mass/Vol]12.2 g/iLLwjnnh37.0-16.0The [facility] HospitalComment on above:Performed By: #### PREGQNT #### [facility] [address] [place] [address] Dr. Carlos DrewP[facility] (R[facility]) [Entitic mass]30.7 djMjewmk37.7-34.0The [facility] HospitalComment on above:Performed By: #### PREGQNT #### [facility] [address] [place] [address] Dr. Carlos [facility] [Mass/Vol]34.2 g/rCQagjxb75.9-35.2The [facility] HospitalComment on above:Performed By: #### PREGQNT #### [facility] [address] [address] [address] [facility] [place] [facility] [Entitic vol]89.7 tYNcqoib99.0-99.0The [facility] HospitalComment on above:Performed By: #### PREGQNT #### [facility] [address] [address] [address] Carlos DrewPLT205 103/pyNdrzoo762-742Tyv [facility] HospitalComment on above: Performed By: #### PREGQNT #### [facility] [address] [place] [address] Dr. Carlos DrewRBC3.98 106/ulCritically low4.20-5.40The [facility] HospitalComment on above:Performed By: #### PREGQNT #### [facility] [address] [place] [address] Dr. Carlos DrewWBC9.8 103/ulNormal4.0-11.0The [facility] HospitalComment on above: Performed By: #### PREGQNT #### [facility] [address] [place] [address] Dr. Carlos Drew Vital Signs Date TimeVital SignValuePerforming EpbmfdkowAztxxsro49-01-5046 12:58-0400Body mass index (BMI) [Ratio]30.02 kg/h8Egadp 51fanli DO Work Phone: NOSac-[facility] HospitalZxbwreofvr31-02-1484 12:58-0400Body .83 kgCorey Koalah Work Phone: [facility] SystemOvgtpawsvt97-81-7104 12:58-0400Diastolic blood hxcepuwn96 mm[Hg][employer] Work Phone: noSac-Osage HospitalNoyvjxncin37-75-1677 12:58-0400Systolic blood luthmblr723 mm[Hg][employer] Work Phone: noWV Cuwlcrcxuq27-67-3073 01:00-0400Body gwdalu757.29 cmDablanquita Macias [place] [employer] Work Phone: [phone] 01:00-0400Body mass index (BMI) [Ratio]32.3 kg/u9Qvoipblanquita Macias [place] [employer] Work Phone: [phone] 01:00-0400Body surface area Derived from formula1.94 w6Kxeug Macias [place] [employer] Work Phone: [phone] 01:00-0400Body dorypu44.91 kgDablanquita Macias [place] [employer] Work Phone: [phone] 01:00-0400Diastolic blood dqtigeha71 mm[Hg] Cydney Macias [place] [employer] Work Phone: [phone] 01:00-0400Heart rate79 /minDavizaynab Ginette [place] [employer] Work Phone: [phone] 01:00-8794TcF6% (BldA) [Mass fraction]98 % Cydney Macias [place] [employer] Work Phone: [phone] 01:00-0400Systolic blood zrilvarr231 mm[Hg] Cydney Macias [place] [employer] Work Phone: [phone] 01:00-0400Body ysnrpl259.29 cmZackmarlin Gray [place] [employer] 59-93 01:00-0400Body mass index (BMI) [Ratio]15 kg/q0Yjhwa Isaac [employer] Work Phone: [phone] 01:00-0400Body surface area Derived from formula1.32 t8UsyvxCasandra Gray [employer] Work Phone: [phone] 01:00-0400Body sbjusc93.1 kgCasandra Gray [employer] Work Phone: [phone] 01:00-0400Diastolic blood axgifrbj57 mm[Hg] Casandra Gray [employer] Phone: [phone] 01:00-0400Heart rate75 /minCasandra Gray [employer] Phone: [phone] 01:00-7190AeF8% (BldA) [Mass fraction]99 % Casandra Gray [employer] Phone: [phone] 01:00-0400Systolic blood epxwcvwy963 mm[Hg] Casandra Gray [employer] Phone: [phone] 09:11-0400Body mass index (BMI) [Ratio]30.29 kg/o1DvcpfZubican Work Phone: DupliaOjminnbazo48-00-0575 09:11-0400Body ulhhhx95.56 kgCharissaZubican Work Phone: [employer] Rnffbebihy07-42-5809 09:11-0400Diastolic blood tgixiyav65 mm[Hg]FeleciaFreeWavz Phone: DupliaFgfrkupgcr33-11-6474 09:11-0400Systolic blood hjzeibtb643 mm[Hg]Movirtu Work Phone: [facility] SystemNhwqmetyse70-08-8578 08:47-0500Body alcakt366.1 cmEmagnus Temple MD Work Phone: [employer] Iogzgiqsle99-54-6595 08:47-0500Body mass index (BMI) [Ratio]33.45 kg/a5OtybupJase Temple MD Work Phone: NOSac-[facility] HospitalDlbhixpksz85-04-2436 08:47-0500Body jjpxuo95.17 kgJase Temple MD Work Phone: [facility] Encounters Encounter DateEncounter TypeCare ProviderFacilityStart: 02-06-2025 End: 21-10-5173Ffwwfj flowsheetCorey Stanley DO Work Phone: noMS Luiza OBGYNStart: 02-06-2025 End: 54-84-5045Rhvtcq flowsheetCorey Stanley DO Work Phone: noms [facility] OBGYNStart: 02-06-2025 End: 57-54-0027Tywlysegw Result EncounterCorey Stanley DO Work Phone: NOXC External Department UnsolicitedStart: 02-06-2025 End: 30-45-6898Cnekcnz encounter procedureCorey Stanley DO Work Phone: [facility] Work Phone: Start: 02-06-2025 End: 53-72-7788Pvwcvuik preventive med est patient 18-39 yrsCorey Stanley DO Work Phone: [facility] Boyd OBGYNComment on above:Well woman exam with routine gynecological examStart: 02-06-2025 End: 60-43-7784rziimbwdeoEMUFU FAZIONot AvailableStart: 89-85-0810Yburzvz med summer counselor&/risk factor redj spx 30 minDavid Ginette [place] [employer], [facility] Start: 71-31-2707Roafp health examinationCasandra Gray [place] [facility] Start: 53-29-6432Evyjqvfk preventive med est patient 18-39 yrsHalmarlin Gray [place] [employer] [facility] LabsGole[facility] Start: 80-82-5471Uxchz health examinationHalmarlin Gray [facility] [employer] [facility] LabsG[facility] Start: 79-86-8139Euuko Myers [facility] [employer] [facility] LabsG[facility] Start: 01-18-2024 End: 16-06-7305Baiegx flowsheetCorey StanleyShare[employer] Work Phone: noms BCP OBStart: 01-18-2024 End: 93-17-0405Nmtdhx flowsheetCorey Stanley [employer] Work Phone: noms BCP OBStart: 01-18-2024 End: 07-56-1327Jgopvcmvz Result EncounterGeneric External Data ProviderNOMS External Department UnsolicitedStart: 01-18-2024 End: 78-84-2537Wdhuohk encounter procedureCorey Stanley [employer] Work Phone: noms HealthcareStart: 01-18-2024 End: 36-87-8597Vtjboamm preventive med est patient 18-39 yrsCorey Stanley DO Work Phone: noms BCP OBComment on above:Well woman exam with routine gynecological examStart: 05-19-2023 End: 91-36-8190Evvmbd outpatient visit 10 Symone Temple MD Work Phone: NOPX BNS FMComment on above:Acute swimmer's ear of right sideStart: 61-96-1099Heydhkain for preprocedural laboratory examinationDR FELECIA Box [facility] Centertart: 01-30-2022 End: 84-57-2993zojjqorjgyJT FELECIA FAZIOFacility:H1Fphen: 01-28-2022 End: 96-21-1673gsvkydpifcHC FELECIA FAZIOFacility:R2Tuhho: 01-28-2022 End: 60-09-9515Zmgnjdjau for preprocedural laboratory examinationDR FELECIA STANLEY Facility:R6Nwmpw: 36-32-5668Appxkiflf for other preprocedural examinationDR FELECIA FAZIOThe Boyd HospitalStart: 01-22-2022 End: 56-30-5136xbcpazongaHQ EDWARD HEMEYERFacility:H8Nmblc: 01-22-2022 End: 52-12-9734Psjkguidj for other preprocedural examinationDR EDWARD HEMEYER Facility:F6Banie: 12-02-2021 End: 94-21-9292lxfhvvhyxaQJ FELECIA FAZIOFacility:F9Gceaj: 05-26-2021 End: 50-23-6063Rinocfxhuo and management of inpatientDR FELECIA FAZIOFacility:H1 Start: 89-72-5639gxqtrjnhlsNC EDCHINEYRE HEMEYERFacility:U8Xulqo: 05-20-2021 End: 82-11-9123gidvairtleNA CYDNEY V WESTFacility:I1Rwvks: 05-19-2021 End: 00-80-7772eijfcvhaltBS FELECIA FAZIOFacility:E2Xxwsb: 05-16-2021 End: 02-91-0060kokyxvbgpkVH SERGIO PERRYKFacility:Q7Mxzsx: 05-13-2021 End: 20-58-8091ueyrbhsazkUN FELECIA FAZIOFacility:A6Bijju: 05-09-2021 End: 00-61-8591loxaknxukoBVLTFDTV GEORGEFacility:M3Txijo: 05-06-2021 End: 54-79-5413vnolgifwuhFB SERGIO KARNANDOKFacility:F2Tfdeu: 05-02-2021 End: 86-19-9599doguseeucbKI FELECIA FAZIOFacility:G6Ooiqi: 04-29-2021 End: 00-75-0683tvgzpuyhomYT FELECIA FAZIOFacility:A3Kgdlx: 04-25-2021 End: 72-59-6064gxovrkmjnbLC SERGIO MORALESFacility:N4Pxnqz: 04-22-2021 End: 62-86-1689yyayjnebogKP FELECIA FAZIOFacility:J9Hxmik: 03-24-2021 End: 52-41-2403snwibvpordTW FELCEIA FAZIOFacility:U9Kyyzr: 03-04-2021 End: 57-10-8062zbmpejytkvXK FELECIA FAZIOFacility:H1 Procedures DateProcedureProcedure DetailPerforming ClinicianStart: 41-65-2475CMV,APTIMA HPV,AGE GDLNCorey Stanley DO Work Phone: Start: 01-24-2025 End: 84-08-8286PxqkdqreezWvxxp Ware Start: 43-44-5279IHC,APTIMA HPV,AGE GDLNCorey Stanley DO Work Phone: Start: 22-42-7128Typncnnxiam observation [Identifier] in Cervix by Cyto stainCorey Stanley DO Work Phone: Start: 24-47-5603Sxkdppfibzf observation [Identifier] in Cervix by Cyto Barbra Temple MD Work Phone: Start: 26-09-0884Qaplyouq of Products of Conception, External ApproachDR FELECIA FAZIOStart: 95-32-5388Tsfhjonu of Female Perineum, External ApproachDR FELECIA FAZIOStart: 64-49-3454Kvdqavae of Amniotic Fluid, Therapeutic from Products of Conception, Via Natural or Artificial OpeningDR FELECIA FAZIOStart: 14-23-5354Mmkphp Perineum Muscle, Open ApproachDR FELECIA STANLEY Start: 57-12-9417Mgsfopdruqdq of Hormone into Female Reproductive, Via Natural or Artificial OpeningDR FELECIA FAZIOStart: 70-17-0381Kseabxdry tubal ligation Casandra Gray Start: 15-76-3373GinphzlygbmtdzjTqonu Myers Start: 25-25-9891MdumvsfevlantimTpqkw Myers Plan of Treatment DateCare ActivityDetailAuthorStart: 46-97-7513Fbejvjmxm for malignant neoplasm of cervixNOMS HealthcareStart: 31-03-7842Tdcbnqznn for malignant neoplasm of cervixNOMS HealthcareStart: 02-13-2026 End: 92-92-6505Utiazao encounter /28/2026 2:00 PM EDT Procedure Visit [facility] [address] [place] [address] Felecia Angel, DO [address] [place] [address] NOMFabi [place] OBGYNStart: 04-10-2025 End: 80-48-7277Killoxu encounter bkpkoqdrz45/23/2025 9:20 AM EST Office Visit [facility] [place] [facility] [address] [facility] [address] [place] [address] Kay Michael MD [address] [facility] [address] [place] [address] N[facility] [place] OtolaryngologyStart: 04-09-2025 End: 19-86-1067Qhheclw encounter mtfctsifh95/22/2025 2:00 PM EST Office Visit [facility] [address] [place] [address] Sidra Ahmadi S, AUD [address] [facility] [place] [address] NOMFabi Cat AudiologyStart: 02-06-2025 End: 61-35-7096Eqpfrla encounter shqyilgse46/21/2025 1:00 PM EDT Office Visit [facility] [address] [facility] [address] [place] [address] Felecia Angel, DO [address] [place], [place] [address] ArrivedNOMS Luiza OBGYNComment on above:ArrivedStart: 60-29-0466Hmagmvs encounter procedureotolaryngologist referralIN [employer] Start: 54-61-6037Oykkgprimvn [Units/volume] in Serum or PlasmaLabcorp ([place])Start: 31-65-4752DiIvqtve; Acute ComplexInPerson; Acute ComplexSD [employer] Start: 01-22-2025 End: 51-20-7915Ibahcum encounter /06/2025 1:00 PM EDT Office Visit [facility] [address] [facility] [address] [place] [address] Felecia Angel, DO [address] [facility] [address] [place] [address] NOMS BCP OBStart: 72-54-9236HiLfuoti; PE Routine- 60 InPerson; PE Routine- 60IN [employer] Start: 74-92-0633JqYkujkb; PE, RoutineInPerson; PE, RoutineIN - [employer] Start: 82-10-3758Hsucsvp evaluation of patient and reportInPerson; Nurse VisitIN [employer] Start: 86-25-1512TAS W Auto Differential panel - Blood [facility] ([place])Start: 24-17-6432Eewoxwavzaaic metabolic 1999 panel - Serum or PlasmaLabcorp ([place])Start: 80-87-7371Jxcmumoqpy A1c/Hemoglobin.total in BloodLabcorp ([place])Start: 10-01-2985Kvehc 1995 panel - Serum or Plasma [facility] ([place])Start: 01-18-2024 End: 41-72-2325Krvculg encounter procedureNOMS [facility] OBComment on above:Arrived Start: 08-46-8237Tdkwhgrzm vaccinationInfluenza Vaccine (#1)[facility] Cytology Cervical or vaginal smear or scraping studyPap Smear Pathology and Cytology Routine Well woman exam with routine gynecological exam Ordered: [facility] Work Phone: comment on above:Ordered: 01/18/2024ytology Cervical or vaginal smear or scraping studyPap Smear Pathology and Cytology Routine Well woman exam with routine gynecological exam Ordered: 02/06/2025[facility] Work Phone: comment on above:Ordered: 02/06/2025Human papilloma virus DNA [Presence] in Unspecified specimen by Probe with amplificationHPV DNA probe, amplified Microbiology Routine Well woman exam with routine gynecological exam Ordered: 01/18/2024[facility] HealthcareComment on above:Ordered: 01/18/2024 Human papilloma virus DNA [Presence] in Unspecified specimen by Probe with amplificationHPV DNA probe, amplified Microbiology Routine Well woman exam with routine gynecological exam Ordered: 02/06/2025[facility] HealthcareComment on above: Ordered: 02/06/2025[facility] Immunizations Immunization DateImmunizationNotesCare FixpdzrrRxtrgewz35-19-0298dquhpntio, seasonal, injectable, preservative Fabiola Macias [facility] ALOSKO 10780988-20-3516iyzcrpo vaccine or immune globulin; Translations: [Encounter for immunization]Cydney Macias [facility]athAt[facility]athL[facility] 10984110-04-9721uznnaekls, seasonal, injectableCasandra Gray [facility]athK[facility] 10178951-47-1897odeskeqfi, injectable, quadrivalent, preservative Disha Temple MD Work Phone: [facility] SystemDafxkwaytb10-31-1207xunuudbof virus vaccine, unspecified formulationFelecia Angel DO Work Phone: NOSac-[facility] HospitalFagtqjbwtw40-61-6367qqlbqtflt, injectable, quadrivalent, preservative freeJase Temple MD Work Phone: [facility] SystemOfiibzftav53-76-2742Ahrcoszib, injectable, Madin Anna Marie Canine Kidney, preservative free, quadrivalentJase Temple MD Work Phone: [facility] SystemVcccgnluuk97-80-2684btjsomw toxoid, reduced diphtheria toxoid, and acellular pertussis vaccine, adsorbedJase Temple MD Work Phone: [facility] SystemZrpvhknpnt84-14-6496UPFK-MIK-2 (COVID-19) vaccine, mRNA, spike protein, LNP, preservative free, 30 mcg/0.3mL doseSelect Medical Specialty Hospital - AkronPlastyc [facility] CenterAlcresta 04135193-32-5558UMAY-HQF-5 (COVID-19) vaccine, mRNA, spike protein, LNP, preservative free, 30 mcg/0.3mL doseSelect Medical Specialty Hospital - AkronPlastyc [facility] CenterAlcresta 03-121548-60-3333CCGB-EYF-3 (COVID-19) vaccine, mRNA, spike protein, LNP, preservative free, 30 mcg/0.3mL doseSelect Medical Specialty Hospital - AkronPlastyc [facility] CenterAlcresta 10969274-75-1816ppcjzbnsxz, tetanus toxoids and acellular pertussis vaccineJase Temple MD Work Phone: [facility] SystemQuahckukos61-21-3984xsfvckk toxoid, reduced diphtheria toxoid, and acellular pertussis vaccine, adsorbedJase Temple MD Work Phone: [facility] Payers DatePayer CategoryPayerPolicy [id number] Health InsuranceFRONTPATH Member Subscriber Plan / Payer (Effective 2022-Present) Name: Leah Connors Relation to Subscriber: Spouse Name: Walt Connors Date ofBirth: 1992 (Home) Address: [address] [place] [id number] Payer ID: Not on file Type: Not on file Address: [address] [id number]728Rwkvdjy 1.2.840.145771.1.13.693.2.7.3.096[id number] 2.0.1.302738.3.57[id number] 2.0.1.652292.3.579.[id number] 2.0.1.263903.3.579.[id number] 2.0.1.593076.3.579.[id number] 2.840.1.355344.3.579.[id number] 2.0.1.550442.3.579.2.89284-49-7436Dyxcxbj5176069 2.0.1.165166.3.57[id number] 2.0.1.855019.3.579.[id number] 2.0.1.395166.3.579.[id number] 2.840.1.045331.3.579.[id number] 2.840.1.377379.3.579.2.00777-08-3282Lxdcejw3927904 2..840.1.341794.3.579.[id number] 2.16.840.1.682167.3.57[id number] 2.840.1.435900.3.57[id number] 2.840.1.877923.3.579.2.42510-52-6014Bxqzobf1006544 2.840.1.609142.3.579.2.84161-79-9396Yipknrs0242203 2.840.1.478995.3.579.2.59110-37-4836Lwjvmcb5574045 2.0.1.472746.3.579.2.77[id number] 2.840.1.515057.3.579.[id number] Social History DateTypeDetailFacilityStart: 10-15-2022 End: 20-65-7380Flimhxz smoking status NHISNever smoked tobaccoNOMS Healthcare Start: 10-15-2022 End: 03-59-3327Pvpexjs use and exposureSmokeless tobacco non-userNOMS Healthcare Start: 05-19-2023 End: 43-04-5535Btdhwng intakeEx-drinker (finding)[facility] HealthcareStart: 10-08-2022 End: 99-20-3563Vbwytqf of Social functionNOMS HealthcareStart: 10-08-2022 End: 51-71-3232Qgyzsgpavmn, Afraid, Rape, and Kick questionnaire [HARK]NOMS HealthcareWithin the last year, have you been afraid of your partner or ex-partner?NoNOMS HealthcareDo you belong to any clubs or organizations such as sikh groups, unions, fraternal or athletic groups, or [...] got money to buy more.Never trueNOMS Healthcare Start: 44-44-4030Br the past 12 months, has lack of transportation kept you from medical appointments or from getting medications?NoNOMS HealthcareStart: 29-06-9995Gosftqjuv69BBVV HealthcareStart: 43-64-9587Qhbqqju CommentCaffeine intake : 2-3 cups/dayNOMS HealthcareStart: 56-10-9395Tbv Assigned At BirthNot on fileNOWV HealthcareStart: 42-67-4991Eeizxth CommentParents are smokers so I have a lot lf second hand exposureNOWV HealthcareStart: 69-36-4291Iinpbpz CommentI drink about twice a yearNOSac-Os[facility] Hospital Medical Equipment Procedure CodeEquipment CodeEquipment Original TextEquipment IdentifierDates ProcedureImplant ([id number]) Clinical Notes 01-30-2022 to 02-06-2025 Note Date & YxxwIpxdWsxqhlha66-46-0939 History of Present illness Narrative* Nikkie Montilla LPN - 02/06/2025 1:00 PM EDT Reason for Appointment: Patient ID: Leah Connors is a 34 y.o. female who presents for Well Women Visit Patient presents today for Annual Exam. MEDICATIONS Current Outpatient Medications Medication Instructions azelastine (Astelin) 0.1 % nasal spray 1 spray, Each Nostril, 2 times daily, Use in each nostril asdirected cetirizine (ZYRTEC) 10 mg, As needed Multiple Vitamin (multivitamin) tablet 1 tablet, Daily ALLERGIES No Known Allergies PROBLEMS Active Ambulatory Problems Diagnosis Date Noted Essential hypertension 10/07/2022 Non morbid obesity due to excess calories 10/07/2022 PCOS (polycystic ovarian syndrome) 10/07/2022 Resolved Ambulatory Problems Diagnosis Date Noted No Resolved Ambulatory Problems Past Medical History: Diagnosis Date Gastroesophageal reflux disease without esophagitis History of abnormal cervical Pap smear History of seizures as a child Hypertension Migraines Miscarriage ([facility] ([facility]) Seizures (HCC) 1993? Varicella 1995? HISTORY PAST MEDICAL HISTORY SOCIAL HISTORY Past Medical History: Diagnosis Date Gastroesophageal reflux disease without esophagitis History of abnormal cervical Pap smear ASCUS History of seizures as a child Hypertension Migraines Miscarriage ([facility] PCOS (polycystic ovarian syndrome) Dr. Angel ([facility]) 05/27/2021, 03/25/2017 Seizures (HCC) 1993? Varicella 1996? Social History Tobacco Use [...] cancer Mother's Brother Cancer Maternal Grandfather Hayden Villegaszaynab Seizures Paternal Grandmother Yara Palicka Hypertension Paternal Grandmother Yara Palicka Diabetes type II Paternal Grandmother Yara Palicka Diabetes Paternal Grandmother Yara Palicka Cancer Mother's Brother Nunu Covingtondrew Hypertension Brother Pranav Jaimes SURGICAL HISTORY Past Surgical History: Procedure Laterality Date [facility] Mirena PAP SMEAR 05/2016 Normal SALPINGECTOMY Bilateral 01/30/2022 Laparoscopic TUBAL LIGATION Removed Jan 2023 VAGINAL DELIVERY 05/27/2021 VAGINAL DELIVERY 03/25/2017 WISDOM TOOTH EXTRACTION 2010 wisdom teeth x2 WISDOM TOOTH EXTRACTION 07/2018 [...] nursing note reviewed. Exam conducted with a continuous pickling line pickler present. Vitals: Estimated body mass index is 30.02 kg/m as calculated from the following: Height as of 08/05/23: 5' 5 . Weight as of this encounter: 180 lb 6.4 oz. BP: 110/72 No LMP recorded. (Menstrual status: IUD). ASSESSMENT & PLAN ICD-10-CM 1. Well woman exam with routine gynecological exam Z01.419 Pap Smear HPV DNA probe, amplified Orders Placed This Encounter Procedures HPV DNA probe, amplified Annual Wellness Exam: Patient presents today for routine annual exam. Patient states she has no current complaints. Patients vitals were reviewed and within normal limits. Growth and development is noted to be appropriate for age. Menstrual history is noted to be regular with no concerns reported. No mental health concerns was expressed. Pap Smear: Speculum was inserted into the vagina and pap was obtained without difficulty. HPV testing was performed per age guideline. Patient was advised that pap results could take anywhere from 7 to 10 days to receive and our office will reach out to the patient with those once we have them. Patient can also view results via [employer]. I reinforced importance of condom use for STI prevention. Patient declined cultures to be performed with today's visit. Breast Exam: Upon examination, clinical breast exam was noted to be normal. Patient was counseled on breast self-awareness, including the importance of knowing what is normal for her own breasts and promptly reporting any changes such as new lumps, skin dimpling, nipple discharge, or pain. Screening mammogram recommended annually beginning at age 40 or earlier if risk factors are present. Discussed signs and symptoms of breast cancer and when to seek medical attention. Answered all patient questions. Contraceptive Counseling (if applicable): Patient is currently using IUD as a form of contraceptive. Patient has IUD Follow Up: Patient is to return to our office in one year for annual exam unless needed otherwise. Documented by Nikkie Montilla LPN on behalf of: Felecia Angel DO documented in this encounterSaint John's Health SystemLidwlrfzsh09-40-1277 History of Present illness Narrative* Nikkie Montilla LPN - 01/18/2024 9:00 AM EDT Reason for [...] Migraines (CMS/HCC) Miscarriage Seizures (CMS/HCC) 1993? Varicella 1995? HISTORY PAST MEDICAL HISTORY SOCIAL HISTORY Past Medical History: Diagnosis Date Gastroesophageal reflux disease without esophagitis History of abnormal cervical Pap smear ASCUS History of seizures as a child Hypertension (CMS/HCC) Migraines (CMS/HCC) Miscarriage PCOS (polycystic ovarian syndrome) Dr. Angel 05/27/2021, 03/25/2017 Seizures (CMS/HCC) 1993? Varicella 1995? Social History Tobacco Use Smoking status: Never [...] cancer Mother's Brother Cancer Maternal Grandfather Hayden Díaz Seizures Paternal Grandmother Yara Jaimes Hypertension Paternal Grandmother Yara Palsamantaa Diabetes type II Paternal Grandmother Yara Palicka Diabetes Paternal Grandmother Yara Palsamantaa Cancer Mother's Brother Nunu Díaz Hypertension Brother Pranav Jaimes SURGICAL HISTORY Past Surgical History: Procedure Laterality Date [facility] Mirena PAP SMEAR 05/2016 [...] nursing note reviewed. Exam conducted with a continuous pickling line pickler present. Vitals: Estimated body mass index is [...] of: Felecia Angel DO documented in this encounterSaint John's Health SystemZbcbyndupk90-76-9359 History of Present illness Narrative* Jase Temple MD - 05/19/2023 9:00 AM EST Patient [...] Acute swimmer's ear of right side - pnrizskt-ibtxfntkc-yctfcahhoiqgnc (Cortisporin) 3.5-54157-8 otic suspension; Administer 3-4 dropsinto each ear in the morning and 3-4 drops in the evening and 3-4 drops before bedtime. Do all thisfor 7 days. documented in this encounterSaint John's Health SystemAfmamxfgzx72-29-8580 NoteOPERATIVE NOTE OPERATION DATE: 01/30/2022 PROCEDURE: Bilateral laparoscopic salpingectomy. PREOPERATIVE DIAGNOSIS: Multiparity, desires permanent sterilization. POSTOPERATIVE DIAGNOSIS: Multiparity, desires permanent sterilization. ANESTHESIA: General. SURGEON: Felecia Angel D.O. INNOVATION ANALYST: AMISH Platt URINE OUTPUT: Yellow and clear. [...] lap and needle counts were correct x2.The [facility] Evaluation note* Diagnosis Acute swimmer's ear of right side documented in this encounter [facility] HealthcareEvaluation note* Diagnosis Well woman exam with routine gynecological exam Routine gynecological examination documented in this encounter [facility] HealthcareEvaluation note No assessment recorded. [place] - [facility] Evaluation note* Encounter Date Assessment Date Assessment LastModified [...] gun safety, wearing seatbelt, wearing helmets w/ bikes).[id number] armqnzuzu00/11/2025 11:19:53 [place] [facility] Evaluation note* Diagnosis Well woman exam with routine gynecological exam Routine gynecological examination documented in this encounter [facility] Narrative - Reported* Condition Response Hypertension (High Blood Pressure) Y Gynecological History Statement/Question Response Abnormal Pap Y Current Control Method IUD Date of LMP Obstetrics History GPAL:G 3 P 0 0 0 2 Type Value Multiple Births 0 Full Term 0 Induced 0 Spontaneous 0 Premature 0 Living 2 Ectopics 0 Total 3 [place] [employer] History general Narrative - Reported* Condition Response Hypertension (High Blood Pressure) Y Gynecological History Statement/Question Response Abnormal Pap Yes Date of Last Pap Smear 01/18/2024 Current Control Method IUD Obstetrics History GPAL:G 3 P 0 0 0 2 Type Value Multiple Births 0 Full Term 0 Induced 0 Spontaneous 0 Premature 0 Living 2 Ectopics 0 Total 3 [employer] 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 fo r 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 Referring Physician: Cydney Macias, Family Medicine, Encounter Date: 01/24/2025 [place] [facility] Summary Purpose Family History Relationship Description Onset Age of this Age Resolved Age Notes LastModified by Organization Details LastModified Time Paternal Grandmother Hypertensive disorder [id number] nssziptod98/18/2024 15:08:47Paternal OwdvsainoqyFlcztnhjlegqpecl64 Not powazbvhj57/18/2024 15:08:48FatherEssential hypertensiondiagnosed with Hypertensionvsenthil.[id number] fnuoqgiqm86/06/2025 21:11:45 Notes:*Relative: Father *Pro blem: alive *Relative: Maternal Grandfather *Problem: Relative: 'Maternal G F'; *Relative: Maternal Grandmother *Problem: alive *Relative: Mother *Problem: alive *Relative: Paternal Grandfather *Problem: Relative: 'Paternal G F'; *Relative: Paternal Grandmother *Problem: Relative: 'Paternal G M'; *Relative: Unspecified Relation *Problem: 2 brother(s) 1 sons(s) 1 daughters(s) *Relative: Unspecified Relation *Problem: lives at 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 spouse and children -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 [employer] Advance Directives TypeDate RecordedPatient RepresentativeExplanationAdvance Directives and Living [id number] Advance Directives Additional Source Comments INFORMATION SOURCE (unrecogn ized section and content) DATE CREATED AUTHOR 08/14/2021 [facility] Health Physician DATE CREATED AUTHOR AUTHOR'S ORGANIZ ATION 02/09/2022 [facility] DATE CREATED AUTHOR AUTHOR'S ORGANIZ ATION 02/07/2025 [facility] EPIC Reason for Visit (unrecogniz ed section and content) ReasonCommentsURIReasonCommentsGynecologic ExamReasonCommentsWell Women Visit Care Teams (unrecognized sec tion and content) Team MemberRelationshipSpecialtyStart DateEnd Date Jase Temple MD [address] [place] [phone] [facility] - [facility]/22Team MemberRelationshipSpecialtyStart DateEnd Date Jase Temple MD [address] [place] [phone] PCP - [facility] Medicine10/06/22Team MemberRelationshipSpecialtyStart DateEnd Date Jase Temple MD [address] [place] [phone] [facility] - [facility]/06/22Te MemberRelationshipSpecialtyStart DateEnd Date Cydney Macias MD [address] [place] [address] [facility]01/30/25Te MemberRelationshipSpecialtyStart Date End Date Cydney Macias MD [address] [place] [phone] [facility]01/30/25 FOR RECORDS PERTAINING TO PATIENTS WHO ARE [...] BE BASED ON THE PRIMARY CLINICAL RECORDS. [facility] [employer] [facility] provides no warranty or guarantee of the accuracy or completeness of information in this document.
== END 2025-02-23 08:12 | disposition home or self-care (01) ==
LOC: CARD 08:11
PROVIDERS: PCP Family Medicine; Visit Provider Family Medicine
DX: R00.1 Bradycardia, unspecified (principal)